=== PATIENT | female | born 1945 | race Caucasian/White ===

== ENCOUNTER 2024-07-10 13:35 | Emergency (ER) | payer OTHER, MEDICARE, SELFPAY ==
--- NOTE | ~2024-07-10 | US_ITS ---
EXAMINATION: US TRIPLEX LOWER EXTREMITY, LEFT CLINICAL INFORMATION: Left lower extremity pain. COMPARISON: None available. TECHNIQUE: Color-flow triplex imaging with spectral analysis and compression Doppler were performed on the left lower extremity. FINDINGS: Respiratory variation, normal compression and augmented flow are noted throughout the left lower extremity. The visualized common femoral vein, superficial femoral vein, profunda femoral vein, popliteal vein and midcalf peroneal and posterior tibial venous segments show no evidence of deep venous thrombosis. There is no Chambers's cyst. US/US venous duplex LE LT IMPRESSION: No evidence of deep venous thrombosis involving the left lower extremity. Electronically signed by: Uche Tinajero MD 07/10/2024 02:56 PM EDT
--- NOTE | ~2024-07-10 | XR_ITS ---
EXAMINATION: XR HIP, LEFT CLINICAL INFORMATION: Chronic atraumatic pain. COMPARISON: None available. TECHNIQUE: Two views of the left hip. FINDINGS: No acute fracture or subluxation. 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 SI joints are symmetric. Pubic symphysis and pelvic rim are maintained. Surgical clip overlie the right hemipelvis. No significant soft tissue abnormality. XR/XR hip LT w PEL1V IMPRESSION: No acute fracture or subluxation. 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 Electronically signed by: Magdalena Salazar MD 07/10/2024 03:11 PM EDT
--- NOTE | 2024-07-10 13:47 | ED.LOWEXIN ---
HPI - Extremity Injury (Lower) General Chief Complaint: Extremity Problem Stated Complaint: pain left leg Time Seen by Provider: 07/10/24 13:56 Source: patient and family Mode of arrival: ambulatory Limitations: no limitations History of Present Illness HPI Narrative: 79-year-old female with a past medical history of restless legs syndrome presents emergency department, with her , for concerns for left leg and hip pain radiating into her left lateral lower leg as well as medial left lower leg pain. She reports she has had this pain ?for awhile? and is concerned that she may have an aneurysm. She reports she has had x-rays of the hip in the past with no evidence of fracture. She denies any falls or trauma to the hip, fever, chills, swelling, deformity, erythema, or ecchymosis. Pertinent positives and negatives discussed in the HPI Related Data Allergies Allergy/AdvReac Type Severity Reaction Status Date / Time Penicillins Allergy Rash Verified 07/10/24 13:50 benzocaine AdvReac Agitated Verified 07/10/24 13:50 Review of Systems Review of Systems: Yes all other systems are reviewed and are negative [facility] Social History Social History Advance Directives: No Advance Directives Information Provided: No Physical Exam Vital Signs: Vital Signs: Last Vital Signs Temp 97.8 F 07/10/24 15:21 Pulse 85 07/10/24 15:21 Resp 20 07/10/24 15:21 BP 151/71 H 07/10/24 15:21 Pulse Ox 97 07/10/24 15:21 O2 Del Method Room Air 07/10/24 15:21 BMI result Body Mass Index 32.4 Nursing notes and vital signs reviewed. GENERAL APPEARANCE: A&0 x 4, generally well appearing, no acute distress HENMT: Normal to inspection, atraumatic, face symmetrical. Normal external ears, nose, and oropharynx clear. EYE: PERRLA, EOM intact, structures appear normal NECK: Supple without stiffness or restricted ROM. HEART: Normal rate and regular rhythm, normal S1/S2, no M/R/G LUNGS: LS CTA, moving air well. Able to speak in complete sentences. No crackles, wheezes, or rhonchi auscultated BACK: No CVAT, no obvious deformity EXTREMITIES: Moving all extremities without difficulty. Normal capillary refill. NEUROLOGICAL: Alert and oriented, moving all 4 extremities with equal strength. CN not formally tested but appearing grossly intact. Observed to ambulate with normal gait. Cognition normal SKIN: Warm and dry without any lesions, rash, or visible sores Course Course Course Narrative: This is a Rapid Medical Examination (RME) performed by Rahat Mccurdy PA-C in triage. Full HPI, ROS, assessment and treatment plan per primary provider in the Main ED. 79 yo female here for eval of intermittent LLE pain extending from left hip/ buttock into her foot with a majority of the pain localized to her left hanks. admits flight to/from [place] in May however pain was present prior to this trip. no chest pain or SOB. no back pain. no falls/ trauma/injury. taking tylenol. + no noted swelling or overlying skin changes. ambulating w/ steady gait. Plan: duplex, xr Medical Decision Making Medical Decision Making MDM Narrative: Old records reviewed for previous imaging, lab studies, ECGs, and notes. Additional HPI obtained from patient's . Patient was assessed the emergency department with no acute distress or toxicity noted. Plan for ultrasound and x-ray to assess for cause of patient's discomfort. Ultrasound left lower extremity completed as well as x-ray left tib/fib. I have independently interpreted these images as negative for acute findings. Radiologist reports no evidence deep vein thrombosis involving the left lower extremity as well as no evidence of Chambers's cyst on ultrasound and no evidence of acute fracture or subluxation on x-ray. 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 Steroids were discussed and ultimately deferred as patient reports she completed a course roughly 2-3 weeks ago. Patient educated to follow-up with her primary care provider regarding treatment for her restless legs as well as her left leg pain she may require physical therapy. Patient is safe for discharge at this time with plan for [id number] Tylenol and/or NSAID such as ibuprofen or naproxen for fever/discomfort with dosing as per packaging. HPI, PE, diagnostics, and plan discussed with patient and family with no unanswered questions at this time. Strict return precautions given to return to the emergency department with new, worsening, or concerning emergent symptoms. Recommended to follow-up with there primary care provider in 24-48 hours for further treatment and management. Differential Diagnosis Differential Diagnoses: The differential diagnosis associated with the presentation includes But not limited to fracture, dislocation, strain, sprain, lumbar radiculopathy, stenosis, cauda equina, epidural abscess, sciatic nerve pain, DVT, restless legs syndrome, electrolyte deficiency, sepsis, malignancy Independent Interpretation I performed an independent interpretation of an: Plain X-Ray and Ultrasound Interpretation: Negative for acute findings Radiology Impression Discussion of test interpretation with radiology: I have reviewed the radiologist's reading. Independent Historian Clinical information obtained from an independent historian. History obtained from or confirmed by: Spouse Tests considered The following testing was considered but not selected: Prednisone was considered but ultimately deferred at this time Prescription Management I considered prescription management with: Pain Medication Narcotic pain medication was considered, however; based on exam, side effects, and high-risk of addiction was deemed necessary at this time. Discharge Plan Discharge Clinical Impression: Left leg pain, Left sciatic nerve pain Patient Disposition: Home, Self-Care Instructions: Sciatica (ED), Leg Pain (ED), Lower Back Exercises (ED) Additional Instructions: EXAMINATION: US TRIPLEX LOWER EXTREMITY, LEFT CLINICAL INFORMATION: Left lower extremity pain. COMPARISON: None available. TECHNIQUE: Color-flow triplex imaging with spectral analysis and compression Doppler were performed on the left lower extremity. FINDINGS: Respiratory variation, normal compression and augmented flow are noted throughout the left lower extremity. The visualized common femoral vein, superficial femoral vein, profunda femoral vein, popliteal vein and midcalf peroneal and posterior tibial venous segments show no evidence of deep venous thrombosis. There is no Chambers's cyst. US/US venous duplex LE LT IMPRESSION: No evidence of deep venous thrombosis involving the left lower extremity. EXAMINATION: XR HIP, LEFT CLINICAL INFORMATION: Chronic atraumatic pain. COMPARISON: None available. TECHNIQUE: Two views of the left hip. FINDINGS: No acute fracture or subluxation. 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 SI joints are symmetric. Pubic symphysis and pelvic rim are maintained. Surgical clip overlie the right hemipelvis. No significant soft tissue abnormality. XR/XR hip LT w PEL1V IMPRESSION: No acute fracture or subluxation. 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 Referrals: [facility] [Provider Group] [facility] [Provider Group] [facility]Lacy [Provider Group] Discharge Date/Time: 07/10/24 15:28 Print Language: Cymraes
[2024-07-10 13:49] VITALS: BP 149/69; PULSE 92; RESP 16; TEMP 36.1; O2SAT 97; BMI 32.4
--- NOTE | 2024-07-10 14:16 | PC.NURSE ---
Pt ambulatory with a steady gait to Xray.
[2024-07-10 15:21] VITALS: BP 151/71; PULSE 85; RESP 20; TEMP 36.6; O2SAT 97
--- NOTE | 2024-07-10 15:27 | PC.NURSE ---
PT WAS SEEN AND DISCHARGED BY PROVIDER.
== END 2024-07-10 15:28 | disposition home or self-care (01) ==
PROVIDERS: Emergency Provider Student in an Organized Health Care Education/Training Program
DX: M79.605 Pain in left leg (principal); M54.32 Sciatica, left side; G25.81 Restless legs syndrome
CPT/HCPCS: 73502; 93971; 99282; 99284

== ENCOUNTER 2025-07-01 14:50 | Outpatient (REF) | payer MEDICARE, OTHER, SELFPAY | END 2025-07-01 14:51 | disposition home or self-care (01) | LOC: HO.LAB 14:50 | PROVIDERS: Visit Provider Urology | DX: R35.0 Frequency of micturition (principal); R32 Unspecified urinary incontinence | CPT/HCPCS: 81003; 87086; 99202 ==

== ENCOUNTER 2025-07-01 14:50 | Outpatient (AMB) | payer MEDICARE, OTHER, SELFPAY ==
--- OUTSIDE RECORDS SUMMARY | 2025-02-02 10:00 | XMS_ITS ---
Author Organization [facility] Address [address] [facility] [place] [address] Care Team Providers Care Grain Farmworker Name Role Phone MONTANA AKINS Primary Care Provider ANDI RICHARDSON [phone] REASON FOR VISIT 4 month f/u Encounters Encounter Location Date Provider Diagnosis [facility] [place] [address] 02/02/2025 ANDI RICHARDSON Plan Of Treatment Next Appt Details Provider Name:ANDI RICHARDSON, 01:00:00 PM, [address], [place], [address], Provider Name:ANDI RICHARDSON, 02:00:00 PM, [address], [place], [address], Progress Notes * LINH REYNOLDSENDOB:1945 (80 yo F)Acc No.[id number]:02/02/2025 Progress Notes Patient: NANCY CORDOVA Provider: Lance RICHARDSON PA-C :1945 A ge:80 Y S ex:Female Date:02/02/2025 Address:[facility] [address] [id number] Pcp:MONTANA AKINS Subjective: * Chief Complaints: * 1 . 4 month f/u. * Medical History: Objective: * Vitals: Assessment: Plan: * Treatment: * Images: Billing Information: * Visit Code: * Procedure Codes: Care Plan Details* * Electronic signature of PEDRO RICHARDSON PA-C on 07/01/2025 at 07:07 PM EDT Sign off status: Pending * Provider: Lance RICHARDSON PA-C Date: 0 02/02/2025 Generated for Pierce little/Inés/Diana on: 0 07/01/2025 07:07 PM EDT
--- NOTE | 2025-07-01 15:05 | A.OFFVIS_ITS ---
Intake Visit Reasons: urinary frecuency Intake Note: New patient presents today for initial visit for urinary frequency Urology Medication:None Blood Thinner:None Antibiotic Allergies:None PVR:0ml Allergies Penicillins Allergy (Verified 07/01/25 15:05) Rash benzocaine Adverse Reaction (Verified 07/01/25 15:05) Agitated HPI Comments Details: Ashtyn presents as a new patient evaluation for urinary frequency urinalysis today blood -2+ leukocytes. History of Present Illness The patient is a 80-year-old female presenting with urinary frequency. She reports a lifelong issue with urinary frequency, often linked to anxiety, and describes a sensation of tightness and urgency when aware of the need to urinate. A childhood incident at age [age] is recalled as a traumatic event related to bladder control, and she notes increased urgency in stressful situations like driving. The patient denies a history of bladder infections, except possibly during , and today's urinalysis showed blood negative 2 plus. Results - Urinalysis: Blood negative, Leuk- 2 + Plan 1. Urinary Frequency - Plan to perform an ultrasound of the kidneys and bladder to assess for any abnormalities. - Consideration of a cystoscopy to visualize the bladder internally, with numbing jelly and lidocaine for comfort. - Referral to radiology for scheduling the ultrasound. 2. Anxiety-Related Bladder Symptoms - Acknowledgment of the role of anxiety in exacerbating bladder symptoms. - Discussion of the potential for anxiety management to alleviate symptoms. Send additional finish [facility] Medical History Arthritis Gastro-esophageal reflux disease without esophagitis Hyperlipidemia Insomnia Hypertension Atrial fibrillation Anxiety Anemia Surgical History H/O colonoscopy History of hysterectomy Hx of LASIK Review of Systems Const All systems reviewed & are unremarkable except as noted in HPI and below Reports no additional complaints Eyes Reports no additional complaints ENT Reports no additional complaints Card Reports no additional complaints Resp Reports no additional complaints GI Reports no additional complaints Reports as per HPI Musc Reports no additional complaints Skin/Breast Reports system reviewed and no additional complaints, except as documented Neuro Reports no additional complaints Psych Reports no additional complaints Endo Reports no additional complaints Obed/Lymph Reports no additional complaints Aller/Immun Reports no additional complaints Results AMB Urinalysis, Automated UA Leukoctes 125 Alyse/uL Last Edit by Petrona King on 07/01/25 17:11 UA Nitrite Negative Last Edit by Petrona King on 07/01/25 17:11 UA Urobilinogen 3.5 mg/dL Last Edit by Petrona King on 07/01/25 17:11 UA Protein 0 mg/dL Last Edit by Petrona King on 07/01/25 17:11 UA pH 6.0 Last Edit by Petrona King on 07/01/25 17:11 UA Blood 0 Misael/uL Last Edit by Petrona King on 07/01/25 17:11 UA Specific [place] 1.015 Last Edit by Petrona King on 07/01/25 17:11 UA Ketone Negative Last Edit by Petrona King on 07/01/25 17:11 UA Bilirubin 0 mg/dL Last Edit by Petrona King on 07/01/25 17:11 UA Glucose 0 mg/dL Last Edit by Petrona King on 07/01/25 17:11 Assessment & Plan Assessment & Plan Orders: Orders AMB Urinalysis Automated Today R35.0 - Frequency of micturition Urine Culture Today R35.0 - Frequency of micturition Coding Level of Care Code New Pt Level 4 (07946)
--- OUTSIDE RECORDS SUMMARY | 2025-07-01 19:08 | XMS_ITS | Patient Health Record ---
Author Organization [facility] [address] Address [address] [place] [address] Care Team Providers Care Plastic Welder Name Role Phone AKINS, [place] Primary Care Provider [phone] ANDI RICHARDSON Unavailable [phone] RICHIE AKINS Unavailable [phone] ALVAREZ HUYNH Unavailable [phone] SONAM BRAGA Unavailable [phone] RYAN HUGGINS Unavailable [phone] Allergies Allergen (clinical drug ingredient) Drug/Non Drug Allergy documented on EMR Reaction Allergy Type Onset Date Status benzocaine (uncoded) Unknown Allergy Active pcn (uncoded) Unknown Allergy Active Results Component Value Reference Range Notes Comp. Metabolic Panel [id number] Reviewed date:10/05/2024 09:57:53 AM Interpretation: Performing Lab:[facility], [address] [place] [address], [place], Phone - [phone], Director - Allan Notes/Report: Glucose 96 70-99 mg/dL BUN 12 8-27 mg/dL Creatinine 0.83 0.57-1.00 mg/dL eGFR 73 >59 mL/min/1.73 BUN/Creatinine Ratio 14 12-28 Sodium 138 134-144 mmol/L Potassium 4.3 3.5-5.2 mmol/L Chloride 102 96-106 mmol/L Carbon Dioxide, Total 24 20-29 mmol/L Calcium 9.3 8.7-10.3 mg/dL Protein, Total 6.6 6.0-8.5 g/dL Albumin 4.2 3.8-4.8 g/dL Globulin, Total 2.4 1.5-4.5 g/dL Bilirubin, Total 0.4 0.0-1.2 mg/dL Alkaline Phosphatase 102 44-121 IU/L AST (SGOT) 21 0-40 IU/L ALT (SGPT) 12 0-32 IU/L CBC With Differential/Platel et-[id number] Reviewed date:10/05/2024 09:57:53 AM Interpretation: Performing Lab:[facility] [place], [address] [facility], Phone - [phone], Director - MDJodry Notes/Report: WBC 4.9 3.4-10.8 x10E3/uL RBC 3.95 3.77-5.28 x10E6/uL Hemoglobin 11.4 11.1-15.9 g/dL Hematocrit 35.8 34.0-46.6 % MCV 91 79-97 fL MCH 28.9 26.6-33.0 pg MCHC 31.8 31.5-35.7 g/dL RDW 14.0 11.7-15.4 % Platelets 217 150-450 x10E3/uL Neutrophils 57 Not Estab. % Lymphs 32 Not Estab. % Monocytes 9 Not Estab. % Eos 2 Not Estab. % Basos 0 Not Estab. % Neutrophils (Absolute) 2.8 1.4-7.0 x10E3/uL Lymphs (Absolute) 1.6 0.7-3.1 x10E3/uL Monocytes(Absolute) 0.4 0.1-0.9 x10E3/uL Eos (Absolute) 0.1 0.0-0.4 x10E3/uL Baso (Absolute) 0.0 0.0-0.2 x10E3/uL Immature Granulocytes 0 Not Estab. % Immature Grans (Abs) 0.0 0.0-0.1 x10E3/uL Urinalysis, Routine-[id number] Reviewed date:10/05/2024 10:02:49 AM Interpretation: Performing Lab:[facility] [place]ie, [address] [facility], [place], Phone - [phone], Director - Angusy Notes/Report: Specific [place] 1.024 1.005-1.030 pH 5.5 5.0-7.5 Urine-Color Yellow Yellow Appearance Cloudy Clear WBC Esterase 1+ Negative Protein 1+ Negative/Trace Glucose Negative Negative Ketones Trace Negative Occult Blood Negative Negative Bilirubin Negative Negative Urobilinogen,Semi-Qn 0.2 0.2-1.0 mg/dL Nitrite, Urine Negative Negative Microscopic Examination See below: Micr oscopic was indicated and was performed. WBC 0-5 0 - 5 /hpf RBC None seen 0 - 2 /hpf Epithelial Cells (non renal) >10 0 - 10 /hpf Casts None seen None seen /lpf Crystals Present N/A Crystal Type Calcium Oxalate N/A Bacteria Few None seen/Few Reason For Referral Reason evaluate & treat Diagnosis 1 Leg pain, left (M79. 605) Diagnosis 2 Leg pain, right (M79 .604) Referral Organization [facility] [address] Referring Provider First Name ANDI Referring Provider Last Name DEBRA Referring Provider Speciality Internal edicine Referred Provider Specialty Physical The rapist Clinical Notes Juanjo Chan 01/2024 11:17:43 AM > faxed pt info to [facility] in [facility]. p) [phone] f) [phone] Referral Priority Routine Reason evaluate & treat Diagnosis 1 Back pain, unspecifi ed back location, unspecified back pain laterality, unspecified chronicity (M54.9) [facility] Referring Provider First Name ANDI Referring Provider Last Name DEBRA Referring Provider Speciality Internal edicine Referred Provider Specialty Pain Medicin e Clinical Notes Juanjo Chan 01/2024 11:31:13 AM > faxed pt info to [facility]. p) [phone] f) [phone], Chikis Crespo 10/22/2024 03:44:27 PM > The patient was seen on 09/22/24 Referral Priority Routine Reason Frequency with [facility] u ro Diagnosis 1 Frequency of urinati on (R35.0) [facility] Referring Provider First Name [place] Referring Provider Last Name TASHI Referring Provider Speciality Internal M edicine Referred Provider Specialty Urology General Notes [facility], [address]; [facility] , P [phone], F [phone] Clinical Notes Susanne Gupta 2024 12:29:20 PM >Referral with note and labs sent to [facility] uro. Paper copy mailed to pt for record. TY.Zak Redena 12/09/2024 02:27:59 PM > Scheduled for 02/25 at 11 am. Pt aware Referral Priority Routine Reason Evaluate & Treat Diagnosis 1 Back pain, unspecifi ed back location, unspecified back pain laterality, unspecified chronicity (M54.9) Referral Organization [facility] Referring Provider First Name ANDI Referring Provider Last Name DEBRA Referring Provider Speciality Internal edicine Referred Provider Specialty Physical The rapist General Notes Racquel Oneill 0 06/08/2025 11:45:29 AM > Referral to [facility] and faxed, p. [phone], f. [phone] Referral Priority Routine Diagnosis 1 Pain in right knee ( M25.561) Diagnosis 2 Other chronic pain ( G89.29) Diagnosis 3 Pain in left knee (M 25.562) Referral Organization [facility] Referring Provider First Name ANDI Referring Provider Last Name DEBRA [facility] Ref[facility]ty [facility] PEDRO LUIS ESCAMILLAERSTEN 0 06/30/2025 10:47:00 AM >Referral to [facility] and faxed, p. [phone], f. [phone] Referral Priority Routine Medications Medication SIG (Take, Route, Frequency, Duration) Notes Start Date End Date Status Meclizine HCl 25 MG 1 tablet as needed Orally Once a day; Duration: 30 days As needed 05/25/2020 Active amLODIPine Besylate 5 MG TAKE 1 TABLET B Y MOUTH EVERY DAY FOR 90 DAYS Orally Once a day; Duration: 90 days Active Dexilant 60 MG 1 capsule Orally Onc e a day; Duration: 30 day(s) undefined 08/08/2018 Active Tums 500 MG 1 tablet Orally Once a day; Duration: 30 day(s) Active LORazepam 0.5 MG 1 tablet Orally Once a day; Duration: 30 days 05/28/2025 Active Pravastatin Sodium 40 MG 1 tablet Orally Once a day; Duration: 90 days Active Fluticasone Propionate 50 MCG/ACT 1 spray in each nostril Nasally Once a day; Duration: 30 days As needed Active Naproxen 500 MG 1 tablet with food o r milk as needed Orally every 12 hrs; Duration: 10 days 06/08/2025 Active Immunizations Vaccine Route Administration Date Status Comme nts Influenza, high dose seasonal IM Intramuscular 08/05/2023 Administered Social History Tobacco Use: Social History Observation Description Date Details (start date - stop date) Former Smoker NA - NA Tobacco Use/Smoking Question Answer Notes Are you a former smoker Section Notes: Social History verified Social History verified Social History verified Social History verified Problems Problem Type SNOMED Code ICD Code Onset Dates Problem Status W/U Status Risk Notes Problem Iron deficiency anemia (74678638) Iron deficiency anemia, unspecified (D50.9) Active confirmed Problem Vitamin B>12< deficiency anaemia (06793428) Vitamin B12 deficiency anemia, unspecified (D51.9) Active confirmed Problem Vitamin D deficiency (58250952) Vitamin D deficiency, unspecified (E55.9) Active confirmed Problem Obesity (604293183) Obesity, unspecified (E66.9) Active confirmed Problem Hyperlipidemia (74191809) Hyperlipidemia, unspecified (E78.5) Active confirmed Problem Insomnia (254833475) Insomnia, unspecified (G47.00) Active confirmed Problem Chronic pain (17833642) Other chronic pain (G89.29) Active confirmed Problem Benign paroxysmal positional vertigo (658929812) Benign paroxysmal vertigo, bilateral (H81.13) Active confirmed Problem Essential hypertension (22270437) Essential (primary) hypertension (I10) Active confirmed Problem Atherosclerotic heart disease of [place] coronary artery without angina pectoris (866437898059792) Atherosclerotic heart disease of [place] coronary artery without angina pectoris (I25.10) Active confirmed Problem Right carotid artery stenosis (799945906407925) Occlusion and stenosis of right carotid artery (I65.21) Active confirmed Problem Atopic dermatitis (29946455) Atopic dermatitis, unspecified (L20.9) Active confirmed Problem 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 Problem Adult health examination (107290119) Encounter for general adult medical examination without abnormal findings (Z00.00) Active confirmed Problem Obese class II (756137356234443) Body mass index (BMI) 35.0-35.9, adult (Z68.35) Active confirmed Problem Prediabetes (344119478) Prediabetes (R73.03) Active confirmed Problem Body mass index 30.00 to 34.99 (537069399525963) Body mass index (BMI) of 34.0-34.9 in adult (Z68.34) Active confirmed Problem Backache (061353334) Back pain, unspecified back location, unspecified back pain laterality, unspecified chronicity (M54.9) Active confirmed Problem Anxiety (68721704) Anxiety (F41.9) Active confi rmed Problem Adult health examination (370746785) Adult general medical exam (Z00.00) Active confirmed Problem Atrial fibrillation (76022858) Atrial fibrillation, unspecified type (I48.91) Active confirmed Problem Arthritis (7621903) Arthritis (M19.90) Active c onfirmed Problem Insomnia (805078455) Insomnia, unspecified type (G47.00) Active confirmed Problem Vitamin D deficiency (11991932) Vitamin D deficiency (E55.9) Active confirmed Problem Arthralgia of the pelvic region and thigh (520714932) Left hip pain (M25.552) Active confirmed Problem Pain in limb (91031380) Leg pain, left (M79.605) Active confirmed Problem Sciatica (45835882) Sciatic leg pain (M54.30) Active confirmed Problem Obese class II (938522207758272) BMI 36.0-36.9,adult (Z68.36) Active confirmed Problem Vitamin B>12< deficiency anaemia (21230961) Anemia due to vitamin B12 deficiency, unspecified B12 deficiency type (D51.9) Active confirmed Problem Gastroesophageal reflux disease (611046291) GERD without esophagitis (K21.9) Active confirmed Problem Pain in limb (62479633) Pain in left hanks (M79.662) Active confirmed Problem Hyperlipidemia (32347135) Hyperlipidemia (E78.5) Active confirmed Problem Pain in limb (99840904) Leg pain, right (M79.604) Active confirmed Vital Signs Heart Rate 90 /min 06/08/2025 Oximetry 96 % 06/08/2025 Blood pressure diastolic 80 mm Hg 06/08/2025 Height 63 in 06/08/2025 Blood pressure systolic 134 mm Hg 06/08/2025 Weight 203.1 lbs 06/08/2025 BMI 35.97 kg/m2 06/08/2025 Encounters Encounter Location Date Provider [facility] [address] [place] [address] 09/09/2024 ANDI DEBRA Left leg swelling M7 9.89 ; Atrial fibrillation, unspecified type I48.91 ; Leg pain, right M79.604 ; Leg pain, left M79.605 ; Hyperlipidemia, unspecified E78.5 ; Anxiety F41.9 ; Obesity, unspecified E66.9 ; Arthritis M19.90 and 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 [place] [address] 10/05/2024 [facility] Z00.00 ; Hyperlipidemia, unspecified E78.5 and Essential (primary) hypertension I10 [facility] [address] [place], [place] 03/15/2025 ANDI DEBRA Atrial fibrillation, unspecified type I48.91 ; Left leg swelling M79.89 ; Leg pain, right M79.604 ; Leg pain, left M79.605 ; Hyperlipidemia, unspecified E78.5 ; Anxiety F41.9 ; Obesity, unspecified E66.9 ; Arthritis M19.90 ; 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 ; Vitamin D deficiency, unspecified E55.9 and Encounter for examination of blood pressure without abnormal findings Z01.30 [facility] [address] [place], [place] 06/08/2025 ANDI DEBRA Left leg swelling M7 9.89 ; Lower thoracic back pain M54.6 ; Hyperlipidemia, unspecified E78.5 ; Anxiety F41.9 ; Obesity, unspecified E66.9 ; Arthritis M19.90 ; 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 [address] [place], [place] 07/30/2024 RYAN BHAVNA [facility] [address] [place] [address] 07/31/2024 SONAM BRAGA [facility] [address] [place] [address] 09/08/2024 NIDNIALL AKINS [facility] [address] [place] [address] 09/11/20[address] TALAL AKINS [facility] [address] [place] [address] 09/15/2024 ANDI DEBRA [facility] [address] [place] [address] 10/05/2024 NIDNIALL AKINS [facility] [address] [place] [address] 10/12/2024 RYAN HUGGINS [facility] [address] [place] [address] 11/10/2024 NIDNIALL AKINS [facility] [address] [place] [address] 12/03/2024 TALPHILLIP AKINS [facility] [address] [place] [address] 12/08/2024 TALAL AKINS [facility] [address] [place] [address] 02/09/2025 NIDNIALL AKINS [facility] [address] [place] [address] 04/16/2025 ANDI DEBRA [facility] [address] [place] [address] 05/28/2025 ANDI DEBRA [facility] [address] [place], [place] 05/31/2025 ANDI DEBRA [facility] [address] [place] [address] 06/03/2025 ALVAREZ LINO [facility] [address] [place] [address] 06/08/2025 ANDI DEBRA [facility] [address] [place] [address] 06/30/2025 ANDI DEBRA [facility] [address] [place] [address] 07/31/2024 RYAN BHAVNA Assessments Encounter Date Diagnosis (ICD Code) Assessment Notes Treatment Notes Treatment Clinical Notes Section Notes 09/09/2024 Atrial fibrillation, unspecified type (ICD-10 - I48.91) Nancy is a pleasant 79-year-old female with a past medical history of arthritis, anemia, anxiety, A-fib, hyperlipidemia, esophageal reflux, hypertension and insomnia who presents today for worsening bilateral lower leg pain, swelling and lumbar spine pain. #Lumbar spine pain: MRI conducted in 2022 states, mild to moderate degenerative changes of the lumbar spine, L2-3 with disc bulging, L3-4, moderate disc bulging and L4-L5 with moderate facet and ligamentum degenerative changes. Patient referred to [facility] at this time as she may benefit from a repeat MRI or cortisone injections. #Bilateral lower leg swelling: + Left ankle with 10 cm and mid calf 14-1/2 cm leg circumference measurement, + Right ankle with 10 cm and mid calf measurement 13 cm. With the difference in leg circumferences, tenderness upon palpation, warmth upon palpation of the left lower extremity a stat rule out DVT ultrasound placed for bilateral lower legs today. If there are no abnormalities upon ultrasound, refer to vascular surgery for further evaluation.Patient is to sign a [facility] emergency department record release, states that she was seen in the emergency department for lower leg swelling a few weeks ago, however we are unsure of what images or treatment was implemented at that time. #Atrial fibrillation: Last cardiology note is from February 2024, EKG performed at that time showed normal sinus rhythm at 73 bpm. Was discontinued sotalol. Warfarin was additionally discontinued, therefore the patient is not anticoagulated at this time. #Hyperlipidemia: Continue pravastatin 40 mg #Anxiety: Continue lorazepam 0.5 mg once a day as needed #Esophageal reflux continue Dexilant 60 mg capsules All questions have been answered to patient's satisfaction. Patient verbalized understanding of diagnosis and treatments explained. Advised to call sooner prior to next visit it any questions/concerns arise. Case discussed with Elmer KNOWLES who reviewed the assessment and plan. Chart, medications, labs, vital signs reviewed. Dictation was accomplished with the use of [employer] voice recognition software, which is prone to medical misidentifications and grammatical errors. This are unintentional and the practitioner does try to identify and correct these, but some could still be present. Please do not hesitate to contact practitioner for clarification. 09/09/2024 Left leg swelling (ICD-10 - M79.89) Nancy is a pleasant 79-year-old female with a past medical history of arthritis, anemia, anxiety, A-fib, hyperlipidemia, esophageal reflux, hypertension and insomnia who presents today for worsening bilateral lower leg pain, swelling and lumbar spine pain. #Lumbar spine pain: MRI conducted in 2022 states, mild to moderate degenerative changes of the lumbar spine, L2-3 with disc bulging, L3-4, moderate disc bulging and L4-L5 with moderate facet and ligamentum degenerative changes. Patient referred to [facility] at this time as she may benefit from a repeat MRI or cortisone injections. #Bilateral lower leg swelling: + Left ankle with 10 cm and mid calf 14-1/2 cm leg circumference measurement, + Right ankle with 10 cm and mid calf measurement 13 cm. With the difference in leg circumferences, tenderness upon palpation, warmth upon palpation of the left lower extremity a stat rule out DVT ultrasound placed for bilateral lower legs today. If there are no abnormalities upon ultrasound, refer to vascular surgery for further evaluation.Patient is to sign a [facility] emergency department record release, states that she was seen in the emergency department for lower leg swelling a few weeks ago, however we are unsure of what images or treatment was implemented at that time. #Atrial fibrillation: Last cardiology note is from February 2024, EKG performed at that time showed normal sinus rhythm at 73 bpm. Was discontinued sotalol. Warfarin was additionally discontinued, therefore the patient is not anticoagulated at this time. #Hyperlipidemia: Continue pravastatin 40 mg #Anxiety: Continue lorazepam 0.5 mg once a day as needed #Esophageal reflux continue Dexilant 60 mg capsules All questions have been answered to patient's satisfaction. Patient verbalized understanding of diagnosis and treatments explained. Advised to call sooner prior to next visit it any questions/concerns arise. Case discussed with Elmer KNOWLES who reviewed the assessment and plan. Chart, medications, labs, vital signs reviewed. Dictation was accomplished with the use of [email or web address] voice recognition software, which is prone to medical misidentifications and grammatical errors. This are unintentional and the practitioner does try to identify and correct these, but some could still be present. Please do not hesitate to contact practitioner for clarification. 10/05/2024 Adult general medical exam (ICD-10 - Z00.00) Patient seen and examined. Comprehensive discussion was done on the following. 1. Nutrition: It is important to follow a healthy diet based on lots of vegetables and legumes and good fat. Avoid processed food and processed carbohydrates. Learn to prepare your own meals. Learn to read labels and avoid high fructose corn syrup, processed chemicals added to increase shelf life and preprepared meals. Avoid fast foods. Learn to eat slowly and plan meals for a week. Try to count calories and be mindful off daily calorie intake. Get into the habit of keeping an eye on your weight by using an appropriate scale. Learn to log exercise and discussed fitness Apps like [employer] which can help keep log off calories taken versus calories burned. Local food should be preferred. Discussed Dirty Dozen Versus Clean Fifteen. Discussed healthy supplements like fish oil, Tumeric, Curcumin, Melatonin, Resveratrol, Probiotics, Vitamin-D, Alpha-Lipoic acid, Vitamin-D and coconut oil. 2. It is important to exercise regularly. Is a good habit to walk at least 30-45 minutes a day. Gentle weightlifting with standard precautions to protect the back. Finding activity like cycling or hiking and get into the habit of engaging in it. Stretching before and after the exercises important. It is also important to contact me if there are any problems like shortness of breath, chest pain, back pain and joint or muscle pain associated with the exercise. 3. Discussed age appropriate screening guidelines. Colonoscopy needs to start at age 50 with stool for occult blood as appropriate. There is a new test that can test for genetic abnormalities in the stool sample. This would not replace a colonoscopy but could be used as a screening tool for patients who do not want a colonoscopy. We discussed the importance of early detection of colon cancer. 4. Discussed current guidelines with respect to breast examination, mammogram and pap smear for early detection of breast and cervical cancer. Patient advised to follow up with these appointments. 5. Discussed safe driving and no use of smart phone while driving 6. Age-appropriate immunizations were discussed. A tetanus booster is needed every 10 years. Flu vaccine is recommended every year just before the start of the flu season. Shingles vaccine is recommended after age 50 but not all insurances cover it. Pneumonia vaccine is given after age 65 unless there are certain comorbidities for which it is started earlier. 7. Diagnostic labs were discussed. These could include CBC CMP and lipids with fasting blood glucose and insulin levels. Vitamin D and hemoglobin A1c testing might be appropriate. 03/15/2025 Atrial fibrillation, unspecified type (ICD-10 - I48.91) Nancy is a pleasant 80-year-old female with a past medical history of arthritis, anemia, anxiety, A-fib, hyperlipidemia, esophageal reflux, hypertension and insomnia who presents today for worsening bilateral lower leg pain, swelling and lumbar spine pain. #Pancreatic cyst: She states that she is continuously following with gastroenterology due to the incidental finding of pancreatic cyst numerous years ago. Last gastroenterology note we have in file is from 2018, therefore we will obtain recent. Patient had an MRI of her abdomen completed in 2020 that stated cystic lesions in the neck and junction of the neck and body of the pancreas, largest collectively measuring 1.4 x 2.3 cm. 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 Patient referred to [facility] at this time as she may benefit from a repeat MRI or cortisone injections. #Bilateral lower leg swelling: Resolved.. Had a recent benign US #Right knee pain: Continue following with [facility] spine and [email or web address] for injections #Atrial fibrillation: Last cardiology note is from February 2024, EKG performed at that time showed normal sinus rhythm at 73 bpm. Was discontinued sotalol. Warfarin was additionally discontinued, therefore the patient is not anticoagulated at this time. #Hyperlipidemia: Continue pravastatin 40 mg #Anxiety: Continue lorazepam 0.5 mg once a day as needed #Esophageal reflux continue Dexilant 60 mg capsules All questions have been answered to patient's satisfaction. Patient verbalized understanding of diagnosis and treatments explained. Advised to call sooner prior to next visit it any questions/concerns arise. Case discussed with Elmer KNOWLES who reviewed the assessment and plan. Chart, medications, labs, vital signs reviewed. Dictation was accomplished with the use of [email or web address] voice recognition software, which is prone to medical misidentifications and grammatical errors. This are unintentional and the practitioner does try to identify and correct these, but some could still be present. Please do not hesitate to contact practitioner for clarification. 06/08/2025 Left leg swelling (ICD-10 - M79.89) Nancy is a pleasant 80-year-old female with a past medical history of arthritis, anemia, anxiety, A-fib, hyperlipidemia, esophageal reflux, hypertension and insomnia who presents today for a f/u... #Lower back pain: Sending patient naproxen 500 mg tablets to be utilized as needed. Emphasized importance of taking this medication with food. Patient's recent CMP demonstrated adequate kidney function. Additionally placing physical therapy referral to [facility] as patient states that as of now she is living with her partner in [place]. #Pancreatic cyst: She states that she is continuously following with gastroenterology due to the incidental finding of pancreatic cyst numerous years ago. Last gastroenterology note we have in file is from 2017, therefore we will obtain recent. Patient had an MRI of her abdomen completed in 2020 that stated cystic lesions in the neck and junction of the neck and body of the pancreas, largest collectively measuring 1.4 x 2.3 cm. 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 #Right knee pain: Continue following with [facility] for injections PRN #Atrial fibrillation: Last cardiology note is from February 2024, EKG performed at that time showed normal sinus rhythm at 73 bpm. Was discontinued sotalol. Warfarin was additionally discontinued, therefore the patient is not anticoagulated at this time.Patient states that she did see cardiology in 2023 #Hyperlipidemia: Continue pravastatin 40 mg #Anxiety: Continue lorazepam 0.5 mg once a day as needed #Esophageal reflux continue Dexilant 60 mg capsules All questions have been answered to patient's satisfaction. Patient verbalized understanding of diagnosis and treatments explained. Advised to call sooner prior to next visit it any questions/concerns arise. Case discussed with Elmer KNOWLES who reviewed the assessment and plan. Chart, medications, labs, vital signs reviewed. Dictation was accomplished with the use of [email or web address] voice recognition software, which is prone to medical misidentifications and grammatical errors. This are unintentional and the practitioner does try to identify and correct these, but some could still be present. Please do not hesitate to contact practitioner for clarification. 06/08/2025 Lower thoracic back pain (ICD-10 - M54.6) Nancy is a pleasant 80-year-old female with a past medical history of arthritis, anemia, anxiety, A-fib, hyperlipidemia, esophageal reflux, hypertension and insomnia who presents today for a f/u... #Lower back pain: Sending patient naproxen 500 mg tablets to be utilized as needed. Emphasized importance of taking this medication with food. Patient's recent CMP demonstrated adequate kidney function. Additionally placing physical therapy referral to [facility] as patient states that as of now she is living with her partner in [place]. #Pancreatic cyst: She states that she is continuously following with gastroenterology due to the incidental finding of pancreatic cyst numerous years ago. Last gastroenterology note we have in file is from 2017, therefore we will obtain recent. Patient had an MRI of her abdomen completed in 2020 that stated cystic lesions in the neck and junction of the neck and body of the pancreas, largest collectively measuring 1.4 x 2.3 cm. 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 #Right knee pain: Continue following with [facility] for injections PRN #Atrial fibrillation: Last cardiology note is from February 2024, EKG performed at that time showed normal sinus rhythm at 73 bpm. Was discontinued sotalol. Warfarin was additionally discontinued, therefore the patient is not anticoagulated at this time.Patient states that she did see cardiology in 2023 #Hyperlipidemia: Continue pravastatin 40 mg #Anxiety: Continue lorazepam 0.5 mg once a day as needed #Esophageal reflux continue Dexilant 60 mg capsules All questions have been answered to patient's satisfaction. Patient verbalized understanding of diagnosis and treatments explained. Advised to call sooner prior to next visit it any questions/concerns arise. Case discussed with Elmer KNOWLES who reviewed the assessment and plan. Chart, medications, labs, vital signs reviewed. Dictation was accomplished with the use of [email or web address] voice recognition software, which is prone to medical misidentifications and grammatical errors. This are unintentional and the practitioner does try to identify and correct these, but some could still be present. Please do not hesitate to contact practitioner for clarification. 03/15/2025 Left leg swelling (ICD-10 - M79.89) Nancy is a pleasant 80-year-old female with a past medical history of arthritis, anemia, anxiety, A-fib, hyperlipidemia, esophageal reflux, hypertension and insomnia who presents today for worsening bilateral lower leg pain, swelling and lumbar spine pain. #Pancreatic cyst: She states that she is continuously following with gastroenterology due to the incidental finding of pancreatic cyst numerous years ago. Last gastroenterology note we have in file is from 2017, therefore we will obtain recent. Patient had an MRI of her abdomen completed in 2020 that stated cystic lesions in the neck and junction of the neck and body of the pancreas, largest collectively measuring 1.4 x 2.3 cm. 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 Patient referred to [facility] at this time as she may benefit from a repeat MRI or cortisone injections. #Bilateral lower leg swelling: Resolved.. Had a recent benign US #Right knee pain: Continue following with [facility] and [email or web address] for injections #Atrial fibrillation: Last cardiology note is from February 2024, EKG performed at that time showed normal sinus rhythm at 73 bpm. Was discontinued sotalol. Warfarin was additionally discontinued, therefore the patient is not anticoagulated at this time. #Hyperlipidemia: Continue pravastatin 40 mg #Anxiety: Continue lorazepam 0.5 mg once a day as needed #Esophageal reflux continue Dexilant 60 mg capsules All questions have been answered to patient's satisfaction. Patient verbalized understanding of diagnosis and treatments explained. Advised to call sooner prior to next visit it any questions/concerns arise. Case discussed with Elmer KNOWLES who reviewed the assessment and plan. Chart, medications, labs, vital signs reviewed. Dictation was accomplished with the use of [email or web address] voice recognition software, which is prone to medical misidentifications and grammatical errors. This are unintentional and the practitioner does try to identify and correct these, but some could still be present. Please do not hesitate to contact practitioner for clarification. 03/15/2025 Leg pain, right (ICD-10 - M79.604) Nancy is a pleasant 80-year-old female with a past medical history of arthritis, anemia, anxiety, A-fib, hyperlipidemia, esophageal reflux, hypertension and insomnia who presents today for worsening bilateral lower leg pain, swelling and lumbar spine pain. #Pancreatic cyst: She states that she is continuously following with gastroenterology due to the incidental finding of pancreatic cyst numerous years ago. Last gastroenterology note we have in file is from 2017, therefore we will obtain recent. Patient had an MRI of her abdomen completed in 2020 that stated cystic lesions in the neck and junction of the neck and body of the pancreas, largest collectively measuring 1.4 x 2.3 cm. 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 Patient referred to [facility] at this time as she may benefit from a repeat MRI or cortisone injections. #Bilateral lower leg swelling: Resolved.. Had a recent benign US #Right knee pain: Continue following with [facility] spine and [email or web address] for injections #Atrial fibrillation: Last cardiology note is from February 2024, EKG performed at that time showed normal sinus rhythm at 73 bpm. Was discontinued sotalol. Warfarin was additionally discontinued, therefore the patient is not anticoagulated at this time. #Hyperlipidemia: Continue pravastatin 40 mg #Anxiety: Continue lorazepam 0.5 mg once a day as needed #Esophageal reflux continue Dexilant 60 mg capsules All questions have been answered to patient's satisfaction. Patient verbalized understanding of diagnosis and treatments explained. Advised to call sooner prior to next visit it any questions/concerns arise. Case discussed with Elmer KNOWLES who reviewed the assessment and plan. Chart, medications, labs, vital signs reviewed. Dictation was accomplished with the use of [email or web address] voice recognition software, which is prone to medical misidentifications and grammatical errors. This are unintentional and the practitioner does try to identify and correct these, but some could still be present. Please do not hesitate to contact practitioner for clarification. 06/08/2025 Hyperlipidemia, unspecified (ICD-10 - E78.5) Nancy is a pleasant 80-year-old female with a past medical history of arthritis, anemia, anxiety, A-fib, hyperlipidemia, esophageal reflux, hypertension and insomnia who presents today for a f/u... #Lower back pain: Sending patient naproxen 500 mg tablets to be utilized as needed. Emphasized importance of taking this medication with food. Patient's recent CMP demonstrated adequate kidney function. Additionally placing physical therapy referral to [facility] as patient states that as of now she is living with her partner in [place]. #Pancreatic cyst: She states that she is continuously following with gastroenterology due to the incidental finding of pancreatic cyst numerous years ago. Last gastroenterology note we have in file is from 2017, therefore we will obtain recent. Patient had an MRI of her abdomen completed in 2020 that stated cystic lesions in the neck and junction of the neck and body of the pancreas, largest collectively measuring 1.4 x 2.3 cm. 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 #Right knee pain: Continue following with [facility] for injections PRN #Atrial fibrillation: Last cardiology note is from February 2024, EKG performed at that time showed normal sinus rhythm at 73 bpm. Was discontinued sotalol. Warfarin was additionally discontinued, therefore the patient is not anticoagulated at this time.Patient states that she did see cardiology in 2023 #Hyperlipidemia: Continue pravastatin 40 mg #Anxiety: Continue lorazepam 0.5 mg once a day as needed #Esophageal reflux continue Dexilant 60 mg capsules All questions have been answered to patient's satisfaction. Patient verbalized understanding of diagnosis and treatments explained. Advised to call sooner prior to next visit it any questions/concerns arise. Case discussed with Elmer KNOWLES who reviewed the assessment and plan. Chart, medications, labs, vital signs reviewed. Dictation was accomplished with the use of [email or web address] voice recognition software, which is prone to medical misidentifications and grammatical errors. This are unintentional and the practitioner does try to identify and correct these, but some could still be present. Please do not hesitate to contact practitioner for clarification. 10/05/2024 Hyperlipidemia, unspecified (ICD-10 - E78.5) Patient seen and examined. Comprehensive discussion was done on the following. 1. Nutrition: It is important to follow a healthy diet based on lots of vegetables and legumes and good fat. Avoid processed food and processed carbohydrates. Learn to prepare your own meals. Learn to read labels and avoid high fructose corn syrup, processed chemicals added to increase shelf life and preprepared meals. Avoid fast foods. Learn to eat slowly and plan meals for a week. Try to count calories and be mindful off daily calorie intake. Get into the habit of keeping an eye on your weight by using an appropriate scale. Learn to log exercise and discussed fitness Apps like [employer] which can help keep log off calories taken versus calories burned. Local food should be preferred. Discussed Dirty Dozen Versus Clean Fifteen. Discussed healthy supplements like fish oil, Tumeric, Curcumin, Melatonin, Resveratrol, Probiotics, Vitamin-D, Alpha-Lipoic acid, Vitamin-D and coconut oil. 2. It is important to exercise regularly. Is a good habit to walk at least 30-45 minutes a day. Gentle weightlifting with standard precautions to protect the back. Finding activity like cycling or hiking and get into the habit of engaging in it. Stretching before and after the exercises important. It is also important to contact me if there are any problems like shortness of breath, chest pain, back pain and joint or muscle pain associated with the exercise. 3. Discussed age appropriate screening guidelines. Colonoscopy needs to start at age 50 with stool for occult blood as appropriate. There is a new test that can test for genetic abnormalities in the stool sample. This would not replace a colonoscopy but could be used as a screening tool for patients who do not want a colonoscopy. We discussed the importance of early detection of colon cancer. 4. Discussed current guidelines with respect to breast examination, mammogram and pap smear for early detection of breast and cervical cancer. Patient advised to follow up with these appointments. 5. Discussed safe driving and no use of smart phone while driving 6. Age-appropriate immunizations were discussed. A tetanus booster is needed every 10 years. Flu vaccine is recommended every year just before the start of the flu season. Shingles vaccine is recommended after age 50 but not all insurances cover it. Pneumonia vaccine is given after age 65 unless there are certain comorbidities for which it is started earlier. 7. Diagnostic labs were discussed. These could include CBC CMP and lipids with fasting blood glucose and insulin levels. Vitamin D and hemoglobin A1c testing might be appropriate. 09/09/2024 Leg pain, right (ICD-10 - M79.604) Nancy is a pleasant 79-year-old female with a past medical history of arthritis, anemia, anxiety, A-fib, hyperlipidemia, esophageal reflux, hypertension and insomnia who presents today for worsening bilateral lower leg pain, swelling and lumbar spine pain. #Lumbar spine pain: MRI conducted in 2022 states, mild to moderate degenerative changes of the lumbar spine, L2-3 with disc bulging, L3-4, moderate disc bulging and L4-L5 with moderate facet and ligamentum degenerative changes. Patient referred to [facility] at this time as she may benefit from a repeat MRI or cortisone injections. #Bilateral lower leg swelling: + Left ankle with 10 cm and mid calf 14-1/2 cm leg circumference measurement, + Right ankle with 10 cm and mid calf measurement 13 cm. With the difference in leg circumferences, tenderness upon palpation, warmth upon palpation of the left lower extremity a stat rule out DVT ultrasound placed for bilateral lower legs today. If there are no abnormalities upon ultrasound, refer to vascular surgery for further evaluation.Patient is to sign a [facility] emergency department record release, states that she was seen in the emergency department for lower leg swelling a few weeks ago, however we are unsure of what images or treatment was implemented at that time. #Atrial fibrillation: Last cardiology note is from February 2024, EKG performed at that time showed normal sinus rhythm at 73 bpm. Was discontinued sotalol. Warfarin was additionally discontinued, therefore the patient is not anticoagulated at this time. #Hyperlipidemia: Continue pravastatin 40 mg #Anxiety: Continue lorazepam 0.5 mg once a day as needed #Esophageal reflux continue Dexilant 60 mg capsules All questions have been answered to patient's satisfaction. Patient verbalized understanding of diagnosis and treatments explained. Advised to call sooner prior to next visit it any questions/concerns arise. Case discussed with Elmer KNOWLES who reviewed the assessment and plan. Chart, medications, labs, vital signs reviewed. Dictation was accomplished with the use of [email or web address] voice recognition software, which is prone to medical misidentifications and grammatical errors. This are unintentional and the practitioner does try to identify and correct these, but some could still be present. Please do not hesitate to contact practitioner for clarification. 09/09/2024 Leg pain, left (ICD-10 - M79.605) Nancy is a pleasant 79-year-old female with a past medical history of arthritis, anemia, anxiety, A-fib, hyperlipidemia, esophageal reflux, hypertension and insomnia who presents today for worsening bilateral lower leg pain, swelling and lumbar spine pain. #Lumbar spine pain: MRI conducted in 2022 states, mild to moderate degenerative changes of the lumbar spine, L2-3 with disc bulging, L3-4, moderate disc bulging and L4-L5 with moderate facet and ligamentum degenerative changes. Patient referred to [facility] at this time as she may benefit from a repeat MRI or cortisone injections. #Bilateral lower leg swelling: + Left ankle with 10 cm and mid calf 14-1/2 cm leg circumference measurement, + Right ankle with 10 cm and mid calf measurement 13 cm. With the difference in leg circumferences, tenderness upon palpation, warmth upon palpation of the left lower extremity a stat rule out DVT ultrasound placed for bilateral lower legs today. If there are no abnormalities upon ultrasound, refer to vascular surgery for further evaluation.Patient is to sign a [facility] emergency department record release, states that she was seen in the emergency department for lower leg swelling a few weeks ago, however we are unsure of what images or treatment was implemented at that time. #Atrial fibrillation: Last cardiology note is from February 2024, EKG performed at that time showed normal sinus rhythm at 73 bpm. Was discontinued sotalol. Warfarin was additionally discontinued, therefore the patient is not anticoagulated at this time. #Hyperlipidemia: Continue pravastatin 40 mg #Anxiety: Continue lorazepam 0.5 mg once a day as needed #Esophageal reflux continue Dexilant 60 mg capsules All questions have been answered to patient's satisfaction. Patient verbalized understanding of diagnosis and treatments explained. Advised to call sooner prior to next visit it any questions/concerns arise. Case discussed with Elmer KNOWLES who reviewed the assessment and plan. Chart, medications, labs, vital signs reviewed. Dictation was accomplished with the use of [email or web address] voice recognition software, which is prone to medical misidentifications and grammatical errors. This are unintentional and the practitioner does try to identify and correct these, but some could still be present. Please do not hesitate to contact practitioner for clarification. 10/05/2024 Essential (primary) hypertension (ICD-10 - I10) Patient seen and examined. Comprehensive discussion was done on the following. 1. Nutrition: It is important to follow a healthy diet based on lots of vegetables and legumes and good fat. Avoid processed food and processed carbohydrates. Learn to prepare your own meals. Learn to read labels and avoid high fructose corn syrup, processed chemicals added to increase shelf life and preprepared meals. Avoid fast foods. Learn to eat slowly and plan meals for a week. Try to count calories and be mindful off daily calorie intake. Get into the habit of keeping an eye on your weight by using an appropriate scale. Learn to log exercise and discussed fitness Apps like [employer] which can help keep log off calories taken versus calories burned. Local food should be preferred. Discussed [employer] Versus [employer]. Discussed healthy supplements like fish oil, Tumeric, Curcumin, Melatonin, Resveratrol, Probiotics, Vitamin-D, Alpha-Lipoic acid, Vitamin-D and coconut oil. 2. It is important to exercise regularly. Is a good habit to walk at least 30-45 minutes a day. Gentle weightlifting with standard precautions to protect the back. Finding activity like cycling or hiking and get into the habit of engaging in it. Stretching before and after the exercises important. It is also important to contact me if there are any problems like shortness of breath, chest pain, back pain and joint or muscle pain associated with the exercise. 3. Discussed age appropriate screening guidelines. Colonoscopy needs to start at age 50 with stool for occult blood as appropriate. There is a new test that can test for genetic abnormalities in the stool sample. This would not replace a colonoscopy but could be used as a screening tool for patients who do not want a colonoscopy. We discussed the importance of early detection of colon cancer. 4. Discussed current guidelines with respect to breast examination, mammogram and pap smear for early detection of breast and cervical cancer. Patient advised to follow up with these appointments. 5. Discussed safe driving and no use of smart phone while driving 6. Age-appropriate immunizations were discussed. A tetanus booster is needed every 10 years. Flu vaccine is recommended every year just before the start of the flu season. Shingles vaccine is recommended after age 50 but not all insurances cover it. Pneumonia vaccine is given after age 65 unless there are certain comorbidities for which it is started earlier. 7. Diagnostic labs were discussed. These could include CBC CMP and lipids with fasting blood glucose and insulin levels. Vitamin D and hemoglobin A1c testing might be appropriate. 03/15/2025 Leg pain, left (ICD-10 - M79.605) Nancy is a pleasant 80-year-old female with a past medical history of arthritis, anemia, anxiety, A-fib, hyperlipidemia, esophageal reflux, hypertension and insomnia who presents today for worsening bilateral lower leg pain, swelling and lumbar spine pain. #Pancreatic cyst: She states that she is continuously following with gastroenterology due to the incidental finding of pancreatic cyst numerous years ago. Last gastroenterology note we have in file is from 2017, therefore we will obtain recent. Patient had an MRI of her abdomen completed in 2020 that stated cystic lesions in the neck and junction of the neck and body of the pancreas, largest collectively measuring 1.4 x 2.3 cm. 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 Patient referred to [facility] and [email or web address] at this time as she may benefit from a repeat MRI or cortisone injections. #Bilateral lower leg swelling: Resolved.. Had a recent benign US #Right knee pain: Continue following with [facility] and [email or web address] for injections #Atrial fibrillation: Last cardiology note is from February 2024, EKG performed at that time showed normal sinus rhythm at 73 bpm. Was discontinued sotalol. Warfarin was additionally discontinued, therefore the patient is not anticoagulated at this time. #Hyperlipidemia: Continue pravastatin 40 mg #Anxiety: Continue lorazepam 0.5 mg once a day as needed #Esophageal reflux continue Dexilant 60 mg capsules All questions have been answered to patient's satisfaction. Patient verbalized understanding of diagnosis and treatments explained. Advised to call sooner prior to next visit it any questions/concerns arise. Case discussed with Elmer KNOWLES who reviewed the assessment and plan. Chart, medications, labs, vital signs reviewed. Dictation was accomplished with the use of [email or web address] voice recognition software, which is prone to medical misidentifications and grammatical errors. This are unintentional and the practitioner does try to identify and correct these, but some could still be present. Please do not hesitate to contact practitioner for clarification. 06/08/2025 Anxiety (ICD-10 - F41.9) Nancy is a pleasant 80-year-old female with a past medical history of arthritis, anemia, anxiety, A-fib, hyperlipidemia, esophageal reflux, hypertension and insomnia who presents today for a f/u... #Lower back pain: Sending patient naproxen 500 mg tablets to be utilized as needed. Emphasized importance of taking this medication with food. Patient's recent CMP demonstrated adequate kidney function. Additionally placing physical therapy referral to [facility] as patient states that as of now she is living with her partner in [place]. #Pancreatic cyst: She states that she is continuously following with gastroenterology due to the incidental finding of pancreatic cyst numerous years ago. Last gastroenterology note we have in file is from 2017, therefore we will obtain recent. Patient had an MRI of her abdomen completed in 2020 that stated cystic lesions in the neck and junction of the neck and body of the pancreas, largest collectively measuring 1.4 x 2.3 cm. 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 #Right knee pain: Continue following with [facility] for injections PRN #Atrial fibrillation: Last cardiology note is from February 2024, EKG performed at that time showed normal sinus rhythm at 73 bpm. Was discontinued sotalol. Warfarin was additionally discontinued, therefore the patient is not anticoagulated at this time.Patient states that she did see cardiology in 2023 #Hyperlipidemia: Continue pravastatin 40 mg #Anxiety: Continue lorazepam 0.5 mg once a day as needed #Esophageal reflux continue Dexilant 60 mg capsules All questions have been answered to patient's satisfaction. Patient verbalized understanding of diagnosis and treatments explained. Advised to call sooner prior to next visit it any questions/concerns arise. Case discussed with Elmer KNOWLES who reviewed the assessment and plan. Chart, medications, labs, vital signs reviewed. Dictation was accomplished with the use of [email or web address] voice recognition software, which is prone to medical misidentifications and grammatical errors. This are unintentional and the practitioner does try to identify and correct these, but some could still be present. Please do not hesitate to contact practitioner for clarification. 06/08/2025 Obesity, unspecified (ICD-10 - E66.9) Nancy is a pleasant 80-year-old female with a past medical history of arthritis, anemia, anxiety, A-fib, hyperlipidemia, esophageal reflux, hypertension and insomnia who presents today for a f/u... #Lower back pain: Sending patient naproxen 500 mg tablets to be utilized as needed. Emphasized importance of taking this medication with food. Patient's recent CMP demonstrated adequate kidney function. Additionally placing physical therapy referral to [facility] as patient states that as of now she is living with her partner in [place]. #Pancreatic cyst: She states that she is continuously following with gastroenterology due to the incidental finding of pancreatic cyst numerous years ago. Last gastroenterology note we have in file is from 2018, therefore we will obtain recent. Patient had an MRI of her abdomen completed in 2020 that stated cystic lesions in the neck and junction of the neck and body of the pancreas, largest collectively measuring 1.4 x 2.3 cm. 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 #Right knee pain: Continue following with [facility] for injections PRN #Atrial fibrillation: Last cardiology note is from February 2024, EKG performed at that time showed normal sinus rhythm at 73 bpm. Was discontinued sotalol. Warfarin was additionally discontinued, therefore the patient is not anticoagulated at this time.Patient states that she did see cardiology in 2023 #Hyperlipidemia: Continue pravastatin 40 mg #Anxiety: Continue lorazepam 0.5 mg once a day as needed #Esophageal reflux continue Dexilant 60 mg capsules All questions have been answered to patient's satisfaction. Patient verbalized understanding of diagnosis and treatments explained. Advised to call sooner prior to next visit it any questions/concerns arise. Case discussed with Elmer KNOWLES who reviewed the assessment and plan. Chart, medications, labs, vital signs reviewed. Dictation was accomplished with the use of [email or web address] voice recognition software, which is prone to medical misidentifications and grammatical errors. This are unintentional and the practitioner does try to identify and correct these, but some could still be present. Please do not hesitate to contact practitioner for clarification. 03/15/2025 Hyperlipidemia, unspecified (ICD-10 - E78.5) Nancy is a pleasant 80-year-old female with a past medical history of arthritis, anemia, anxiety, A-fib, hyperlipidemia, esophageal reflux, hypertension and insomnia who presents today for worsening bilateral lower leg pain, swelling and lumbar spine pain. #Pancreatic cyst: She states that she is continuously following with gastroenterology due to the incidental finding of pancreatic cyst numerous years ago. Last gastroenterology note we have in file is from 2018, therefore we will obtain recent. Patient had an MRI of her abdomen completed in 2020 that stated cystic lesions in the neck and junction of the neck and body of the pancreas, largest collectively measuring 1.4 x 2.3 cm. 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 Patient referred to [facility] at this time as she may benefit from a repeat MRI or cortisone injections. #Bilateral lower leg swelling: Resolved.. Had a recent benign US #Right knee pain: Continue following with [facility] for injections #Atrial fibrillation: Last cardiology note is from February 2024, EKG performed at that time showed normal sinus rhythm at 73 bpm. Was discontinued sotalol. Warfarin was additionally discontinued, therefore the patient is not anticoagulated at this time. #Hyperlipidemia: Continue pravastatin 40 mg #Anxiety: Continue lorazepam 0.5 mg once a day as needed #Esophageal reflux continue Dexilant 60 mg capsules All questions have been answered to patient's satisfaction. Patient verbalized understanding of diagnosis and treatments explained. Advised to call sooner prior to next visit it any questions/concerns arise. Case discussed with Elmer KNOWLES who reviewed the assessment and plan. Chart, medications, labs, vital signs reviewed. Dictation was accomplished with the use of [email or web address] voice recognition software, which is prone to medical misidentifications and grammatical errors. This are unintentional and the practitioner does try to identify and correct these, but some could still be present. Please do not hesitate to contact practitioner for clarification. 09/09/2024 Hyperlipidemia, unspecified (ICD-10 - E78.5) Nancy is a pleasant 79-year-old female with a past medical history of arthritis, anemia, anxiety, A-fib, hyperlipidemia, esophageal reflux, hypertension and insomnia who presents today for worsening bilateral lower leg pain, swelling and lumbar spine pain. #Lumbar spine pain: MRI conducted in 2022 states, mild to moderate degenerative changes of the lumbar spine, L2-3 with disc bulging, L3-4, moderate disc bulging and L4-L5 with moderate facet and ligamentum degenerative changes. Patient referred to [facility] at this time as she may benefit from a repeat MRI or cortisone injections. #Bilateral lower leg swelling: + Left ankle with 10 cm and mid calf 14-1/2 cm leg circumference measurement, + Right ankle with 10 cm and mid calf measurement 13 cm. With the difference in leg circumferences, tenderness upon palpation, warmth upon palpation of the left lower extremity a stat rule out DVT ultrasound placed for bilateral lower legs today. If there are no abnormalities upon ultrasound, refer to vascular surgery for further evaluation.Patient is to sign a [facility] emergency department record release, states that she was seen in the emergency department for lower leg swelling a few weeks ago, however we are unsure of what images or treatment was implemented at that time. #Atrial fibrillation: Last cardiology note is from February 2024, EKG performed at that time showed normal sinus rhythm at 73 bpm. Was discontinued sotalol. Warfarin was additionally discontinued, therefore the patient is not anticoagulated at this time. #Hyperlipidemia: Continue pravastatin 40 mg #Anxiety: Continue lorazepam 0.5 mg once a day as needed #Esophageal reflux continue Dexilant 60 mg capsules All questions have been answered to patient's satisfaction. Patient verbalized understanding of diagnosis and treatments explained. Advised to call sooner prior to next visit it any questions/concerns arise. Case discussed with Elmer KNOWLES who reviewed the assessment and plan. Chart, medications, labs, vital signs reviewed. Dictation was accomplished with the use of [email or web address] voice recognition software, which is prone to medical misidentifications and grammatical errors. This are unintentional and the practitioner does try to identify and correct these, but some could still be present. Please do not hesitate to contact practitioner for clarification. 09/09/2024 Anxiety (ICD-10 - F41.9) Nancy is a pleasant 79-year-old female with a past medical history of arthritis, anemia, anxiety, A-fib, hyperlipidemia, esophageal reflux, hypertension and insomnia who presents today for worsening bilateral lower leg pain, swelling and lumbar spine pain. #Lumbar spine pain: MRI conducted in 2022 states, mild to moderate degenerative changes of the lumbar spine, L2-3 with disc bulging, L3-4, moderate disc bulging and L4-L5 with moderate facet and ligamentum degenerative changes. Patient referred to [facility] at this time as she may benefit from a repeat MRI or cortisone injections. #Bilateral lower leg swelling: + Left ankle with 10 cm and mid calf 14-1/2 cm leg circumference measurement, + Right ankle with 10 cm and mid calf measurement 13 cm. With the difference in leg circumferences, tenderness upon palpation, warmth upon palpation of the left lower extremity a stat rule out DVT ultrasound placed for bilateral lower legs today. If there are no abnormalities upon ultrasound, refer to vascular surgery for further evaluation.Patient is to sign a [facility] emergency department record release, states that she was seen in the emergency department for lower leg swelling a few weeks ago, however we are unsure of what images or treatment was implemented at that time. #Atrial fibrillation: Last cardiology note is from February 2024, EKG performed at that time showed normal sinus rhythm at 73 bpm. Was discontinued sotalol. Warfarin was additionally discontinued, therefore the patient is not anticoagulated at this time. #Hyperlipidemia: Continue pravastatin 40 mg #Anxiety: Continue lorazepam 0.5 mg once a day as needed #Esophageal reflux continue Dexilant 60 mg capsules All questions have been answered to patient's satisfaction. Patient verbalized understanding of diagnosis and treatments explained. Advised to call sooner prior to next visit it any questions/concerns arise. Case discussed with Elmer KNOWLES who reviewed the assessment and plan. Chart, medications, labs, vital signs reviewed. Dictation was accomplished with the use of [email or web address] voice recognition software, which is prone to medical misidentifications and grammatical errors. This are unintentional and the practitioner does try to identify and correct these, but some could still be present. Please do not hesitate to contact practitioner for clarification. 03/15/2025 Anxiety (ICD-10 - F41.9) Nancy is a pleasant 80-year-old female with a past medical history of arthritis, anemia, anxiety, A-fib, hyperlipidemia, esophageal reflux, hypertension and insomnia who presents today for worsening bilateral lower leg pain, swelling and lumbar spine pain. #Pancreatic cyst: She states that she is continuously following with gastroenterology due to the incidental finding of pancreatic cyst numerous years ago. Last gastroenterology note we have in file is from 2017, therefore we will obtain recent. Patient had an MRI of her abdomen completed in 2020 that stated cystic lesions in the neck and junction of the neck and body of the pancreas, largest collectively measuring 1.4 x 2.3 cm. 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 Patient referred to [facility] at this time as she may benefit from a repeat MRI or cortisone injections. #Bilateral lower leg swelling: Resolved.. Had a recent benign US #Right knee pain: Continue following with [facility] for injections #Atrial fibrillation: Last cardiology note is from February 2024, EKG performed at that time showed normal sinus rhythm at 73 bpm. Was discontinued sotalol. Warfarin was additionally discontinued, therefore the patient is not anticoagulated at this time. #Hyperlipidemia: Continue pravastatin 40 mg #Anxiety: Continue lorazepam 0.5 mg once a day as needed #Esophageal reflux continue Dexilant 60 mg capsules All questions have been answered to patient's satisfaction. Patient verbalized understanding of diagnosis and treatments explained. Advised to call sooner prior to next visit it any questions/concerns arise. Case discussed with Elmer KNOWLES who reviewed the assessment and plan. Chart, medications, labs, vital signs reviewed. Dictation was accomplished with the use of [email or web address] voice recognition software, which is prone to medical misidentifications and grammatical errors. This are unintentional and the practitioner does try to identify and correct these, but some could still be present. Please do not hesitate to contact practitioner for clarification. 06/08/2025 Arthritis (ICD-10 - M19.90) Nancy is a pleasant 80-year-old female with a past medical history of arthritis, anemia, anxiety, A-fib, hyperlipidemia, esophageal reflux, hypertension and insomnia who presents today for a f/u... #Lower back pain: Sending patient naproxen 500 mg tablets to be utilized as needed. Emphasized importance of taking this medication with food. Patient's recent CMP demonstrated adequate kidney function. Additionally placing physical therapy referral to [facility] as patient states that as of now she is living with her partner in [place]. #Pancreatic cyst: She states that she is continuously following with gastroenterology due to the incidental finding of pancreatic cyst numerous years ago. Last gastroenterology note we have in file is from 2018, therefore we will obtain recent. Patient had an MRI of her abdomen completed in 2020 that stated cystic lesions in the neck and junction of the neck and body of the pancreas, largest collectively measuring 1.4 x 2.3 cm. 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 #Right knee pain: Continue following with [facility] for injections PRN #Atrial fibrillation: Last cardiology note is from February 2024, EKG performed at that time showed normal sinus rhythm at 73 bpm. Was discontinued sotalol. Warfarin was additionally discontinued, therefore the patient is not anticoagulated at this time.Patient states that she did see cardiology in 2023 #Hyperlipidemia: Continue pravastatin 40 mg #Anxiety: Continue lorazepam 0.5 mg once a day as needed #Esophageal reflux continue Dexilant 60 mg capsules All questions have been answered to patient's satisfaction. Patient verbalized understanding of diagnosis and treatments explained. Advised to call sooner prior to next visit it any questions/concerns arise. Case discussed with Elmer KNOWLES who reviewed the assessment and plan. Chart, medications, labs, vital signs reviewed. Dictation was accomplished with the use of [email or web address] voice recognition software, which is prone to medical misidentifications and grammatical errors. This are unintentional and the practitioner does try to identify and correct these, but some could still be present. Please do not hesitate to contact practitioner for clarification. 06/08/2025 Degeneration of intervertebral disc of lumbar region with lower extremity pain (ICD-10 - M51.361) Nancy is a pleasant 80-year-old female with a past medical history of arthritis, anemia, anxiety, A-fib, hyperlipidemia, esophageal reflux, hypertension and insomnia who presents today for a f/u... #Lower back pain: Sending patient naproxen 500 mg tablets to be utilized as needed. Emphasized importance of taking this medication with food. Patient's recent CMP demonstrated adequate kidney function. Additionally placing physical therapy referral to [facility] as patient states that as of now she is living with her partner in [place]. #Pancreatic cyst: She states that she is continuously following with gastroenterology due to the incidental finding of pancreatic cyst numerous years ago. Last gastroenterology note we have in file is from 2017, therefore we will obtain recent. Patient had an MRI of her abdomen completed in 2020 that stated cystic lesions in the neck and junction of the neck and body of the pancreas, largest collectively measuring 1.4 x 2.3 cm. 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 #Right knee pain: Continue following with [facility] for injections PRN #Atrial fibrillation: Last cardiology note is from February 2024, EKG performed at that time showed normal sinus rhythm at 73 bpm. Was discontinued sotalol. Warfarin was additionally discontinued, therefore the patient is not anticoagulated at this time.Patient states that she did see cardiology in 2023 #Hyperlipidemia: Continue pravastatin 40 mg #Anxiety: Continue lorazepam 0.5 mg once a day as needed #Esophageal reflux continue Dexilant 60 mg capsules All questions have been answered to patient's satisfaction. Patient verbalized understanding of diagnosis and treatments explained. Advised to call sooner prior to next visit it any questions/concerns arise. Case discussed with Elmer KNOWLES who reviewed the assessment and plan. Chart, medications, labs, vital signs reviewed. Dictation was accomplished with the use of [email or web address] voice recognition software, which is prone to medical misidentifications and grammatical errors. This are unintentional and the practitioner does try to identify and correct these, but some could still be present. Please do not hesitate to contact practitioner for clarification. 03/15/2025 Obesity, unspecified (ICD-10 - E66.9) Nancy is a pleasant 80-year-old female with a past medical history of arthritis, anemia, anxiety, A-fib, hyperlipidemia, esophageal reflux, hypertension and insomnia who presents today for worsening bilateral lower leg pain, swelling and lumbar spine pain. #Pancreatic cyst: She states that she is continuously following with gastroenterology due to the incidental finding of pancreatic cyst numerous years ago. Last gastroenterology note we have in file is from 2017, therefore we will obtain recent. Patient had an MRI of her abdomen completed in 2020 that stated cystic lesions in the neck and junction of the neck and body of the pancreas, largest collectively measuring 1.4 x 2.3 cm. 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 Patient referred to [facility] and [email or web address] at this time as she may benefit from a repeat MRI or cortisone injections. #Bilateral lower leg swelling: Resolved.. Had a recent benign US #Right knee pain: Continue following with [facility] for injections #Atrial fibrillation: Last cardiology note is from February 2024, EKG performed at that time showed normal sinus rhythm at 73 bpm. Was discontinued sotalol. Warfarin was additionally discontinued, therefore the patient is not anticoagulated at this time. #Hyperlipidemia: Continue pravastatin 40 mg #Anxiety: Continue lorazepam 0.5 mg once a day as needed #Esophageal reflux continue Dexilant 60 mg capsules All questions have been answered to patient's satisfaction. Patient verbalized understanding of diagnosis and treatments explained. Advised to call sooner prior to next visit it any questions/concerns arise. Case discussed with Elmer KNOWLES who reviewed the assessment and plan. Chart, medications, labs, vital signs reviewed. Dictation was accomplished with the use of [email or web address] voice recognition software, which is prone to medical misidentifications and grammatical errors. This are unintentional and the practitioner does try to identify and correct these, but some could still be present. Please do not hesitate to contact practitioner for clarification. 09/09/2024 Obesity, unspecified (ICD-10 - E66.9) Nancy is a pleasant 79-year-old female with a past medical history of arthritis, anemia, anxiety, A-fib, hyperlipidemia, esophageal reflux, hypertension and insomnia who presents today for worsening bilateral lower leg pain, swelling and lumbar spine pain. #Lumbar spine pain: MRI conducted in 2022 states, mild to moderate degenerative changes of the lumbar spine, L2-3 with disc bulging, L3-4, moderate disc bulging and L4-L5 with moderate facet and ligamentum degenerative changes. Patient referred to [facility] at this time as she may benefit from a repeat MRI or cortisone injections. #Bilateral lower leg swelling: + Left ankle with 10 cm and mid calf 14-1/2 cm leg circumference measurement, + Right ankle with 10 cm and mid calf measurement 13 cm. With the difference in leg circumferences, tenderness upon palpation, warmth upon palpation of the left lower extremity a stat rule out DVT ultrasound placed for bilateral lower legs today. If there are no abnormalities upon ultrasound, refer to vascular surgery for further evaluation.Patient is to sign a [facility] emergency department record release, states that she was seen in the emergency department for lower leg swelling a few weeks ago, however we are unsure of what images or treatment was implemented at that time. #Atrial fibrillation: Last cardiology note is from February 2024, EKG performed at that time showed normal sinus rhythm at 73 bpm. Was discontinued sotalol. Warfarin was additionally discontinued, therefore the patient is not anticoagulated at this time. #Hyperlipidemia: Continue pravastatin 40 mg #Anxiety: Continue lorazepam 0.5 mg once a day as needed #Esophageal reflux continue Dexilant 60 mg capsules All questions have been answered to patient's satisfaction. Patient verbalized understanding of diagnosis and treatments explained. Advised to call sooner prior to next visit it any questions/concerns arise. Case discussed with Elmer KNOWLES who reviewed the assessment and plan. Chart, medications, labs, vital signs reviewed. Dictation was accomplished with the use of [email or web address] voice recognition software, which is prone to medical misidentifications and grammatical errors. This are unintentional and the practitioner does try to identify and correct these, but some could still be present. Please do not hesitate to contact practitioner for clarification. 09/09/2024 Arthritis (ICD-10 - M19.90) Nancy is a pleasant 79-year-old female with a past medical history of arthritis, anemia, anxiety, A-fib, hyperlipidemia, esophageal reflux, hypertension and insomnia who presents today for worsening bilateral lower leg pain, swelling and lumbar spine pain. #Lumbar spine pain: MRI conducted in 2022 states, mild to moderate degenerative changes of the lumbar spine, L2-3 with disc bulging, L3-4, moderate disc bulging and L4-L5 with moderate facet and ligamentum degenerative changes. Patient referred to [facility] at this time as she may benefit from a repeat MRI or cortisone injections. #Bilateral lower leg swelling: + Left ankle with 10 cm and mid calf 14-1/2 cm leg circumference measurement, + Right ankle with 10 cm and mid calf measurement 13 cm. With the difference in leg circumferences, tenderness upon palpation, warmth upon palpation of the left lower extremity a stat rule out DVT ultrasound placed for bilateral lower legs today. If there are no abnormalities upon ultrasound, refer to vascular surgery for further evaluation.Patient is to sign a [facility] emergency department record release, states that she was seen in the emergency department for lower leg swelling a few weeks ago, however we are unsure of what images or treatment was implemented at that time. #Atrial fibrillation: Last cardiology note is from February 2024, EKG performed at that time showed normal sinus rhythm at 73 bpm. Was discontinued sotalol. Warfarin was additionally discontinued, therefore the patient is not anticoagulated at this time. #Hyperlipidemia: Continue pravastatin 40 mg #Anxiety: Continue lorazepam 0.5 mg once a day as needed #Esophageal reflux continue Dexilant 60 mg capsules All questions have been answered to patient's satisfaction. Patient verbalized understanding of diagnosis and treatments explained. Advised to call sooner prior to next visit it any questions/concerns arise. Case discussed with Elmer KNOWLES who reviewed the assessment and plan. Chart, medications, labs, vital signs reviewed. Dictation was accomplished with the use of [email or web address] voice recognition software, which is prone to medical misidentifications and grammatical errors. This are unintentional and the practitioner does try to identify and correct these, but some could still be present. Please do not hesitate to contact practitioner for clarification. 06/08/2025 Vitamin D deficiency (ICD-10 - E55.9) Nancy is a pleasant 80-year-old female with a past medical history of arthritis, anemia, anxiety, A-fib, hyperlipidemia, esophageal reflux, hypertension and insomnia who presents today for a f/u... #Lower back pain: Sending patient naproxen 500 mg tablets to be utilized as needed. Emphasized importance of taking this medication with food. Patient's recent CMP demonstrated adequate kidney function. Additionally placing physical therapy referral to [facility] as patient states that as of now she is living with her partner in [place]. #Pancreatic cyst: She states that she is continuously following with gastroenterology due to the incidental finding of pancreatic cyst numerous years ago. Last gastroenterology note we have in file is from 2018, therefore we will obtain recent. Patient had an MRI of her abdomen completed in 2020 that stated cystic lesions in the neck and junction of the neck and body of the pancreas, largest collectively measuring 1.4 x 2.3 cm. 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 #Right knee pain: Continue following with [facility] for injections PRN #Atrial fibrillation: Last cardiology note is from February 2024, EKG performed at that time showed normal sinus rhythm at 73 bpm. Was discontinued sotalol. Warfarin was additionally discontinued, therefore the patient is not anticoagulated at this time.Patient states that she did see cardiology in 2023 #Hyperlipidemia: Continue pravastatin 40 mg #Anxiety: Continue lorazepam 0.5 mg once a day as needed #Esophageal reflux continue Dexilant 60 mg capsules All questions have been answered to patient's satisfaction. Patient verbalized understanding of diagnosis and treatments explained. Advised to call sooner prior to next visit it any questions/concerns arise. Case discussed with Elmer KNOWLES who reviewed the assessment and plan. Chart, medications, labs, vital signs reviewed. Dictation was accomplished with the use of [email or web address] voice recognition software, which is prone to medical misidentifications and grammatical errors. This are unintentional and the practitioner does try to identify and correct these, but some could still be present. Please do not hesitate to contact practitioner for clarification. 03/15/2025 Arthritis (ICD-10 - M19.90) Nancy is a pleasant 80-year-old female with a past medical history of arthritis, anemia, anxiety, A-fib, hyperlipidemia, esophageal reflux, hypertension and insomnia who presents today for worsening bilateral lower leg pain, swelling and lumbar spine pain. #Pancreatic cyst: She states that she is continuously following with gastroenterology due to the incidental finding of pancreatic cyst numerous years ago. Last gastroenterology note we have in file is from 2017, therefore we will obtain recent. Patient had an MRI of her abdomen completed in 2020 that stated cystic lesions in the neck and junction of the neck and body of the pancreas, largest collectively measuring 1.4 x 2.3 cm. 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 Patient referred to [facility] at this time as she may benefit from a repeat MRI or cortisone injections. #Bilateral lower leg swelling: Resolved.. Had a recent benign US #Right knee pain: Continue following with [facility] for injections #Atrial fibrillation: Last cardiology note is from February 2024, EKG performed at that time showed normal sinus rhythm at 73 bpm. Was discontinued sotalol. Warfarin was additionally discontinued, therefore the patient is not anticoagulated at this time. #Hyperlipidemia: Continue pravastatin 40 mg #Anxiety: Continue lorazepam 0.5 mg once a day as needed #Esophageal reflux continue Dexilant 60 mg capsules All questions have been answered to patient's satisfaction. Patient verbalized understanding of diagnosis and treatments explained. Advised to call sooner prior to next visit it any questions/concerns arise. Case discussed with Elmer KNOWLES who reviewed the assessment and plan. Chart, medications, labs, vital signs reviewed. Dictation was accomplished with the use of [email or web address] voice recognition software, which is prone to medical misidentifications and grammatical errors. This are unintentional and the practitioner does try to identify and correct these, but some could still be present. Please do not hesitate to contact practitioner for clarification. 06/08/2025 Encounter for examination of blood pressure without abnormal findings (ICD-10 - Z01.30) Nancy is a pleasant 80-year-old female with a past medical history of arthritis, anemia, anxiety, A-fib, hyperlipidemia, esophageal reflux, hypertension and insomnia who presents today for a f/u... #Lower back pain: Sending patient naproxen 500 mg tablets to be utilized as needed. Emphasized importance of taking this medication with food. Patient's recent CMP demonstrated adequate kidney function. Additionally placing physical therapy referral to [facility] as patient states that as of now she is living with her partner in [place]. #Pancreatic cyst: She states that she is continuously following with gastroenterology due to the incidental finding of pancreatic cyst numerous years ago. Last gastroenterology note we have in file is from 2017, therefore we will obtain recent. Patient had an MRI of her abdomen completed in 2020 that stated cystic lesions in the neck and junction of the neck and body of the pancreas, largest collectively measuring 1.4 x 2.3 cm. 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 #Right knee pain: Continue following with [facility] for injections PRN #Atrial fibrillation: Last cardiology note is from February 2024, EKG performed at that time showed normal sinus rhythm at 73 bpm. Was discontinued sotalol. Warfarin was additionally discontinued, therefore the patient is not anticoagulated at this time.Patient states that she did see cardiology in 2023 #Hyperlipidemia: Continue pravastatin 40 mg #Anxiety: Continue lorazepam 0.5 mg once a day as needed #Esophageal reflux continue Dexilant 60 mg capsules All questions have been answered to patient's satisfaction. Patient verbalized understanding of diagnosis and treatments explained. Advised to call sooner prior to next visit it any questions/concerns arise. Case discussed with Elmer KNOWLES who reviewed the assessment and plan. Chart, medications, labs, vital signs reviewed. Dictation was accomplished with the use of [email or web address] voice recognition software, which is prone to medical misidentifications and grammatical errors. This are unintentional and the practitioner does try to identify and correct these, but some could still be present. Please do not hesitate to contact practitioner for clarification. 03/15/2025 Degeneration of intervertebral disc of lumbar region with lower extremity pain (ICD-10 - M51.361) Nancy is a pleasant 80-year-old female with a past medical history of arthritis, anemia, anxiety, A-fib, hyperlipidemia, esophageal reflux, hypertension and insomnia who presents today for worsening bilateral lower leg pain, swelling and lumbar spine pain. #Pancreatic cyst: She states that she is continuously following with gastroenterology due to the incidental finding of pancreatic cyst numerous years ago. Last gastroenterology note we have in file is from 2018, therefore we will obtain recent. Patient had an MRI of her abdomen completed in 2020 that stated cystic lesions in the neck and junction of the neck and body of the pancreas, largest collectively measuring 1.4 x 2.3 cm. 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 Patient referred to [email or web address] at this time as she may benefit from a repeat MRI or cortisone injections. #Bilateral lower leg swelling: Resolved.. Had a recent benign US #Right knee pain: Continue following with [facility] for injections #Atrial fibrillation: Last cardiology note is from February 2024, EKG performed at that time showed normal sinus rhythm at 73 bpm. Was discontinued sotalol. Warfarin was additionally discontinued, therefore the patient is not anticoagulated at this time. #Hyperlipidemia: Continue pravastatin 40 mg #Anxiety: Continue lorazepam 0.5 mg once a day as needed #Esophageal reflux continue Dexilant 60 mg capsules All questions have been answered to patient's satisfaction. Patient verbalized understanding of diagnosis and treatments explained. Advised to call sooner prior to next visit it any questions/concerns arise. Case discussed with Elmer KNOWLES who reviewed the assessment and plan. Chart, medications, labs, vital signs reviewed. Dictation was accomplished with the use of [email or web address] voice recognition software, which is prone to medical misidentifications and grammatical errors. This are unintentional and the practitioner does try to identify and correct these, but some could still be present. Please do not hesitate to contact practitioner for clarification. 09/09/2024 Degeneration of intervertebral disc of lumbar region with lower extremity pain (ICD-10 - M51.361) Nancy is a pleasant 79-year-old female with a past medical history of arthritis, anemia, anxiety, A-fib, hyperlipidemia, esophageal reflux, hypertension and insomnia who presents today for worsening bilateral lower leg pain, swelling and lumbar spine pain. #Lumbar spine pain: MRI conducted in 2022 states, mild to moderate degenerative changes of the lumbar spine, L2-3 with disc bulging, L3-4, moderate disc bulging and L4-L5 with moderate facet and ligamentum degenerative changes. Patient referred to [email or web address] at this time as she may benefit from a repeat MRI or cortisone injections. #Bilateral lower leg swelling: + Left ankle with 10 cm and mid calf 14-1/2 cm leg circumference measurement, + Right ankle with 10 cm and mid calf measurement 13 cm. With the difference in leg circumferences, tenderness upon palpation, warmth upon palpation of the left lower extremity a stat rule out DVT ultrasound placed for bilateral lower legs today. If there are no abnormalities upon ultrasound, refer to vascular surgery for further evaluation.Patient is to sign a [facility] emergency department record release, states that she was seen in the emergency department for lower leg swelling a few weeks ago, however we are unsure of what images or treatment was implemented at that time. #Atrial fibrillation: Last cardiology note is from February 2024, EKG performed at that time showed normal sinus rhythm at 73 bpm. Was discontinued sotalol. Warfarin was additionally discontinued, therefore the patient is not anticoagulated at this time. #Hyperlipidemia: Continue pravastatin 40 mg #Anxiety: Continue lorazepam 0.5 mg once a day as needed #Esophageal reflux continue Dexilant 60 mg capsules All questions have been answered to patient's satisfaction. Patient verbalized understanding of diagnosis and treatments explained. Advised to call sooner prior to next visit it any questions/concerns arise. Case discussed with Elmer KNOWLES who reviewed the assessment and plan. Chart, medications, labs, vital signs reviewed. Dictation was accomplished with the use of [email or web address] voice recognition software, which is prone to medical misidentifications and grammatical errors. This are unintentional and the practitioner does try to identify and correct these, but some could still be present. Please do not hesitate to contact practitioner for clarification. 03/15/2025 Vitamin D deficiency, unspecified (ICD-10 - E55.9) Nancy is a pleasant 80-year-old female with a past medical history of arthritis, anemia, anxiety, A-fib, hyperlipidemia, esophageal reflux, hypertension and insomnia who presents today for worsening bilateral lower leg pain, swelling and lumbar spine pain. #Pancreatic cyst: She states that she is continuously following with gastroenterology due to the incidental finding of pancreatic cyst numerous years ago. Last gastroenterology note we have in file is from 2018, therefore we will obtain recent. Patient had an MRI of her abdomen completed in 2020 that stated cystic lesions in the neck and junction of the neck and body of the pancreas, largest collectively measuring 1.4 x 2.3 cm. 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 Patient referred to [facility] at this time as she may benefit from a repeat MRI or cortisone injections. #Bilateral lower leg swelling: Resolved.. Had a recent benign US #Right knee pain: Continue following with [facility] for injections #Atrial fibrillation: Last cardiology note is from February 2024, EKG performed at that time showed normal sinus rhythm at 73 bpm. Was discontinued sotalol. Warfarin was additionally discontinued, therefore the patient is not anticoagulated at this time. #Hyperlipidemia: Continue pravastatin 40 mg #Anxiety: Continue lorazepam 0.5 mg once a day as needed #Esophageal reflux continue Dexilant 60 mg capsules All questions have been answered to patient's satisfaction. Patient verbalized understanding of diagnosis and treatments explained. Advised to call sooner prior to next visit it any questions/concerns arise. Case discussed with Elmer KNOWLES who reviewed the assessment and plan. Chart, medications, labs, vital signs reviewed. Dictation was accomplished with the use of [email or web address] voice recognition software, which is prone to medical misidentifications and grammatical errors. This are unintentional and the practitioner does try to identify and correct these, but some could still be present. Please do not hesitate to contact practitioner for clarification. 03/15/2025 Encounter for examination of blood pressure without abnormal findings (ICD-10 - Z01.30) Nancy is a pleasant 80-year-old female with a past medical history of arthritis, anemia, anxiety, A-fib, hyperlipidemia, esophageal reflux, hypertension and insomnia who presents today for worsening bilateral lower leg pain, swelling and lumbar spine pain. #Pancreatic cyst: She states that she is continuously following with gastroenterology due to the incidental finding of pancreatic cyst numerous years ago. Last gastroenterology note we have in file is from 2018, therefore we will obtain recent. Patient had an MRI of her abdomen completed in 2020 that stated cystic lesions in the neck and junction of the neck and body of the pancreas, largest collectively measuring 1.4 x 2.3 cm. 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 Patient referred to [facility] at this time as she may benefit from a repeat MRI or cortisone injections. #Bilateral lower leg swelling: Resolved.. Had a recent benign US #Right knee pain: Continue following with [facility] for injections #Atrial fibrillation: Last cardiology note is from February 2024, EKG performed at that time showed normal sinus rhythm at 73 bpm. Was discontinued sotalol. Warfarin was additionally discontinued, therefore the patient is not anticoagulated at this time. #Hyperlipidemia: Continue pravastatin 40 mg #Anxiety: Continue lorazepam 0.5 mg once a day as needed #Esophageal reflux continue Dexilant 60 mg capsules All questions have been answered to patient's satisfaction. Patient verbalized understanding of diagnosis and treatments explained. Advised to call sooner prior to next visit it any questions/concerns arise. Case discussed with Elmer KNOWLES who reviewed the assessment and plan. Chart, medications, labs, vital signs reviewed. Dictation was accomplished with the use of [email or web address] voice recognition software, which is prone to medical misidentifications and grammatical errors. This are unintentional and the practitioner does try to identify and correct these, but some could still be present. Please do not hesitate to contact practitioner for clarification. Plan Of Treatment Pending Test Test Name Order Date X ray : Hip, left 11/19/2022 Vitamin D, 25-Hydroxy 10/30/2018 Lipid Panel 10/13/2018 CBC 10/13/2018 Bone Density 09/10/2019 MRI : Abdomen with and without Contrast 11/09/2020 MRI : Lumbar without contrast 02/22/2023 25 HYDROXY VITAMIN D2 D3 11/28/2020 CBC (COMPLETE BLOOD COUNT) 11/28/2020 CBC (COMPLETE BLOOD COUNT) 03/20/2021 CBC (COMPLETE BLOOD COUNT) 10/30/2018 COMPREHENSIVE METABOLIC PANEL 10/30/2018 COMPREHENSIVE METABOLIC PANEL 11/28/2020 COMPREHENSIVE METABOLIC PANEL 10/13/2018 HEMOGLOBIN A1C 10/13/2018 HEMOGLOBIN A1C 10/30/2018 INSULIN 11/28/2020 INSULIN, FREE 10/30/2018 LIPID PANEL 10/30/2018 LIPID PANEL 11/28/2020 TSH WITH REFLEX TO FT4 10/30/2018 US Head/Neck Soft Tissue 10/30/2018 XR Hip 2+ Vws LT 10/17/2022 XR Knee 3 Views LT 10/29/2019 XR Tibia/Fibula 2 Views LT 06/17/2024 LIPID PANEL, STANDARD 02/17/2024 LIPID PANEL, STANDARD 10/05/2024 LIPID PANEL, STANDARD 03/15/2025 LIPID PANEL, STANDARD 06/08/2025 LIPID PANEL, STANDARD 12/20/2021 LIPID PANEL, STANDARD 03/25/2023 COMPREHENSIVE METABOLIC PANEL 02/17/2024 COMPREHENSIVE METABOLIC PANEL 03/25/2023 COMPREHENSIVE METABOLIC PANEL 12/20/2021 COMPREHENSIVE METABOLIC PANEL 06/08/2025 COMPREHENSIVE METABOLIC PANEL 03/15/2025 COMPREHENSIVE METABOLIC PANEL 10/05/2024 CBC (INCLUDES DIFF/PLT) 10/05/2024 CBC (INCLUDES DIFF/PLT) 03/15/2025 CBC (INCLUDES DIFF/PLT) 06/08/2025 CBC (INCLUDES DIFF/PLT) 12/20/2021 CBC (INCLUDES DIFF/PLT) 03/25/2023 CBC (INCLUDES DIFF/PLT) 02/17/2024 URINALYSIS, COMPLETE 02/17/2024 URINALYSIS, COMPLETE 03/15/2025 URINALYSIS, COMPLETE 10/05/2024 URINALYSIS, COMPLETE 03/25/2023 HEMOGLOBIN A1c 03/25/2023 INSULIN 03/25/2023 INSULIN 12/20/2021 VITAMIN B12 03/15/2025 VITAMIN B12 06/08/2025 VITAMIN D,25-OH,TOTAL,IA 06/08/2025 VITAMIN D,25-OH,TOTAL,IA 03/15/2025 VITAMIN D,25-OH,TOTAL,IA 12/20/2021 VITAMIN D,25-OH,TOTAL,IA 03/25/2023 US Abdomen 04/22/2020 US Carotid Duplex Bilat Complt US Duplex Venous Study Bilat 09/09/2024 TSH+T4F+T3Free 03/15/2025 TSH+T3+Free T4+T3 Free 06/08/2025 Next Appt Details Provider Name:ANDI NASSARR, 01:00:00 PM, [address], [place], [address], Provider Name:ANDI CYR, 02:00:00 PM, [address], [place], [address], Insurance Providers Payer Name Payer Address Payer Phone Subscriber Number Group Number Insured Name Patient Relationship to Insured Coverage Start Date Coverage End Date Medicare Part B [id number] [address] [place] [id number] NANCY REYNOLDS Self - patient is the insured [employer] [address] [place] [id number] NANCY REYNOLDS Self - patient is the insured Medical (General) History Medical History History ICD Code anemia anxiety Atrial fibrillation hypertension insomnia Anxiety F41.9 Hyperlipidemia E78.5 Gastro-esophageal reflux disease without esophagitis K21.9 Arthritis M19.90 Surgical History Surgery Date(Month/Year) cholecystectomy lasik hysterectomy colonoscopy 3 years cardiac ablation Hospitalization History Reason Date(Month/Year) SAME SURGICAL
== END 2025-07-01 15:53 | disposition home or self-care (01) ==
PROVIDERS: Visit Provider Urology
DX: R35.0 Frequency of micturition (principal)

== ENCOUNTER 2025-07-28 07:22 | Outpatient (REF) | payer MEDICARE, OTHER, SELFPAY ==
--- OUTSIDE RECORDS SUMMARY | 2024-06-17 11:15 | XMS_ITS ---
Author Organization [facility] [address] [address] Address [address] [place] [address] Care Team Providers Care Jet Inspector Name Role Phone MONTANA AKINS Primary Care Provider [phone] ANDI RICHARDSON Unavailable [phone] DEBORA VELAZQUEZ [phone] Medications Medication SIG (Take, Route, Frequency, Duration) Notes Start Date End Date Status Tums 500 MG 1 tablet Orally Once a day; Duration: 30 day(s) Active LORazepam 0.5 MG 1 tablet Once a day in the evening Orally as needed; Duration: 30 days 06/05/2024 Active Pravastatin Sodium 40 MG 1 tablet Orally Once a day; Duration: 90 days Active amLODIPine Besylate 5 MG 1 tablet Orally Once a day; Duration: 90 days 08/11/2018 Active Meclizine HCl 25 MG 1 tablet as needed Orally Once a day; Duration: 30 day(s) 05/25/2020 Active Warfarin Sodium 7.5 MG 1 tablet Orally Once a day 7.5 mg Mon, Wed, Sat; 5mg every other day Active Dexilant 60 MG 1 capsule Orally Once a day; Duration: 30 day(s) undefined 08/08/2018 Active Fluticasone Propionate 50 MCG/ACT 1 spray in each nostril Nasally Once a day; Duration: 30 day(s) Active Encounters Encounter Location Date Provider Diagnosis [facility] [address] [place] [address] 06/17/2024 DEBORA VELAZQUEZ Plan Of Treatment Next Appt Details Provider Name:ANDI RICHARDSON 01:00:00 PM, [address], [place], [address], Provider Name:ANDI RICHARDSON, 02:00:00 PM, [address], [place], [address], Progress Notes * MAXIMO REYNOLDSOB:1945 (80 yo F)Acc No.[id number]:06/17/2024 Progress Notes Patient: NANCY CORDOVA Provider: Giancarlo VELAZQUEZ :1945 A ge:79 Y S ex:Female Date:06/17/2024 Address:[address] [place] [address] , [facility], [id number] Pcp:MONTANA AKINS Subjective: * Chief Complaints: * * Medical History: * Medications: T aking Warfarin Sodium 7.5 MG Tablet 1 tablet Orally Once a day , Notes to Pharmacist: 7.5 mg Mon, Wed, Sat; 5mg every other day, Taking Fluticasone Propionate 50 MCG/ACT Suspension 1 spray in each nostril Nasally Once a day , Taking Dexilant 60 MG Capsule Delayed Release 1 capsule Orally Once a day , Notes to Pharmacist: undefined, Taking Tums 500 MG Tablet Chewable 1 tablet Orally Once a day , Taking Meclizine HCl 25 MG Tablet 1 tablet as needed Orally Once a day , Taking amLODIPine Besylate 5 MG Tablet 1 tablet Orally Once a day , Taking Pravastatin Sodium 40 MG Tablet 1 tablet Orally Once a day , Taking LORazepam 0.5 MG Tablet 1 tablet Once a day in the evening Orally as needed Objective: * Vitals: Assessment: Plan: * Treatment: Care Plan: * Problems: * Images: Billing Information: * Visit Code: * Procedure Codes: Care Plan Details* * Electronic signature of CHARLEY VELAZQUEZ PA-C, [id number] on 07/28/2025 at 07:24 AM EDT Sign off status: Pending * Provider: Giancarlo VELAZQUEZ Date: 0 06/17/2024 Generated for Pierce little/Inés/Diana on: 07:24 AM EDT
--- OUTSIDE RECORDS SUMMARY | 2025-02-02 10:00 | XMS_ITS ---
Author Organization [facility] [address] Address [address] [facility] [place] [address] Care Team Providers Care Wool Grader Name Role Phone MONTANA AKINS Primary Care Provider ANDI RICHARDSON [phone] REASON FOR VISIT 4 month f/u Encounters Encounter Location Date Provider Diagnosis [facility] [address] [place] [address] 02/02/2025 ANDI RICHARDSON Plan Of Treatment Next Appt Details Provider Name:ANDI RICHARDSON, 01:00:00 PM, [address], [place], [address], Provider Name:ANDI RICHARDSON, 02:00:00 PM, [address], [place], [address], Progress Notes * LINH REYNOLDSENDOB:1945 (80 yo F)Acc No.[id number]:02/02/2025 Progress Notes Patient: NANCY CORDOVA Provider: Lance RICHARDSON PA-C :1945 A ge:80 Y S ex:Female Date:02/02/2025 Address:[facility] [address] [id number] Pcp:MONTANA AKINS Subjective: * Chief Complaints: * 1 . 4 month f/u. * Medical History: Objective: * Vitals: Assessment: Plan: * Treatment: * Images: Billing Information: * Visit Code: * Procedure Codes: Care Plan Details* * Electronic signature of PEDRO RICHARDSON PA-C on 07/28/2025 at 07:24 AM EDT Sign off status: Pending * Provider: Lance RICHARDSON PA-C Date: 0 02/02/2025 Generated for Pierce little/Inés/Diana on: 1 07:24 AM EDT
--- OUTSIDE RECORDS SUMMARY | 2025-07-28 07:24 | XMS_ITS | Patient Health Record ---
Author Organization [facility] [address] Address [address] [place] [address] Care Team Providers Care Horticultural Manager Name Role Phone AKINS, [place] Primary Care Provider ANDI RICHARDSON Unavailable [phone] RICHIE AKINS Unavailable [phone] ALVAREZ HUYNH Unavailable [phone] SONAM BRAGA Unavailable [phone] RYAN HUGGINS Unavailable [phone] Allergies Allergen (clinical drug ingredient) Drug/Non Drug Allergy documented on EMR Reaction Allergy Type Onset Date Status benzocaine (uncoded) Unknown Allergy Active pcn (uncoded) Unknown Allergy Active Results Component Value Reference Range Notes Comp. Metabolic Panel [id number] Reviewed date:10/05/2024 09:57:53 AM Interpretation: Performing Lab:[facility], [address] [place] [address], [place], Phone - [phone], Director - Allan Notes/Report: Glucose 96 70-99 [...] (SGPT) 12 0-32 IU/L CBC With Differential/Platel et-[id number] Reviewed date:10/05/2024 09:57:53 AM Interpretation: Performing Lab:[facility] [place], [address] [facility], Phone - [phone], Director - MDJodry Notes/Report: WBC 4.9 3.4-10.8 [...] Immature Grans (Abs) 0.0 0.0-0.1 x10E3/uL Urinalysis, Routine-[id number] Reviewed date:10/05/2024 10:02:49 AM Interpretation: Performing Lab:[facility] [place], [address] [facility], [place], Phone - [phone], Director - Angusy Notes/Report: Specific [place] 1.024 1.005-1.030 pH 5.5 5.0-7.5 Urine-Color Yellow [...] 11:17:43 AM > faxed pt info to [facility] in [facility]. p) [phone] f) [phone] Referral Priority Routine Reason evaluate & treat Diagnosis 1 Back pain, unspecifi ed back location, unspecified back pain laterality, unspecified chronicity (M54.9) [facility] Referring Provider First Name ANDI Referring Provider Last Name DEBRA Referring Provider Speciality Internal edicine Referred Provider Specialty Pain Medicin e Clinical Notes Juanjo Chan 01/2024 11:31:13 AM > faxed pt info to [facility]. p) [phone] f) [phone], Chikis Crespo 10/22/2024 03:44:27 PM > The patient was seen on 09/22/24 Referral Priority Routine Reason Frequency with [facility] u ro Diagnosis 1 Frequency of urinati on (R35.0) [facility] Referring Provider First Name [place] Referring Provider Last Name TASHI Referring Provider Speciality Internal M edicine Referred Provider Specialty Urology General Notes [facility], [address]; [facility] , P [phone], F [phone] Clinical Notes Susanne Gupta 2024 12:29:20 PM >Referral with note and labs sent to [facility] uro. Paper copy mailed to pt for record. TYZak Garcia Redena 12/09/2024 02:27:59 PM > Scheduled for 02/25 at 11 am. Pt aware Referral Priority Routine Reason Evaluate & Treat Diagnosis 1 Back pain, unspecifi ed back location, unspecified back pain laterality, unspecified chronicity (M54.9) Referral Organization [facility] Referring Provider First Name ANDI Referring Provider Last Name DEBRA Referring Provider Speciality Internal edicine Referred Provider Specialty Physical The [facility] General Notes Racquel Oneill 0 06/08/2025 11:45:29 AM > Referral to [facility] and faxed, p. [phone], f. [phone] Referral Priority Routine Diagnosis 1 Pain in right knee ( M25.561) Diagnosis 2 Other chronic pain ( G89.29) Diagnosis 3 Pain in left knee (M 25.562) Referral Organization [facility] Referring Provider First Name ANDI Referring Provider Last Name DEBRA [facility] Referred Provider Specialty [facility] PEDRO LUIS ESCAMILLAERSTEN 0 06/30/2025 10:47:00 AM >Referral to [facility] and faxed, p. [phone], f. [phone] Referral Priority Routine Medications Medication SIG (Take, Route, Frequency, Duration) Notes Start Date End Date Status Meclizine HCl 25 MG 1 tablet as needed Orally Once a day; Duration: 30 days As needed 05/25/2020 Active LORazepam 0.5 MG 1 tablet Orally Once a day; Duration: 30 days 07/27/2025 Active amLODIPine Besylate 5 MG TAKE 1 TABLET B Y MOUTH EVERY DAY FOR 90 DAYS Orally Once a day; Duration: 90 days Active Dexilant 60 MG 1 capsule Orally Onc e a day; Duration: 30 day(s) undefined 08/08/2018 Active Tums 500 MG 1 tablet Orally Once a day; Duration: 30 day(s) Active Naproxen 500 MG 1 tablet with food o r milk as needed Orally every 12 hrs; Duration: 10 days 06/08/2025 Active Pravastatin Sodium 40 MG 1 tablet Orally Once a day; Duration: 90 days Active Fluticasone Propionate 50 MCG/ACT 1 spray in each nostril Nasally Once a day; Duration: 30 days As needed Active Immunizations Vaccine Route Administration Date Status [...] Status Risk Notes Problem Iron deficiency anemia (67347782) Iron deficiency anemia, unspecified (D50.9) Active confirmed Problem Vitamin B>12< deficiency anaemia (28718046) Vitamin B12 deficiency anemia, unspecified (D51.9) Active confirmed Problem Vitamin D deficiency (29883847) Vitamin D deficiency, unspecified (E55.9) Active confirmed Problem Obesity (167640955) Obesity, unspecified (E66.9) Active confirmed Problem Hyperlipidemia (36393711) Hyperlipidemia, unspecified (E78.5) Active confirmed Problem Insomnia (383915963) Insomnia, unspecified (G47.00) Active confirmed Problem Chronic pain (88551366) Other chronic pain (G89.29) Active confirmed Problem Benign paroxysmal positional vertigo (930341425) Benign paroxysmal vertigo, bilateral (H81.13) Active confirmed Problem Essential hypertension (87188617) Essential (primary) hypertension (I10) Active confirmed Problem Atherosclerotic heart disease of [place] coronary artery without angina pectoris (838625832347998) Atherosclerotic heart disease of [place] coronary artery without angina pectoris (I25.10) Active confirmed Problem Right carotid artery stenosis (825196304458734) Occlusion and stenosis of right carotid artery (I65.21) Active confirmed Problem Atopic dermatitis (95626765) Atopic dermatitis, unspecified (L20.9) Active confirmed Problem 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 confirmed Problem Adult health examination (956188717) Encounter for general adult medical examination without abnormal findings (Z00.00) Active confirmed Problem Obese class II (002967152123836) Body mass index (BMI) 35.0-35.9, adult (Z68.35) Active confirmed Problem Prediabetes (588893024) Prediabetes (R73.03) Active confirmed Problem Body mass index 30.00 to 34.99 (351303207913372) Body mass index (BMI) of 34.0-34.9 in adult (Z68.34) Active confirmed Problem Backache (122738409) Back pain, unspecified back location, unspecified back pain laterality, unspecified chronicity (M54.9) Active confirmed Problem Anxiety (64408830) Anxiety (F41.9) Active confi rmed Problem Adult health examination (400935943) Adult general medical exam (Z00.00) Active confirmed Problem Atrial fibrillation (08912572) Atrial fibrillation, unspecified type (I48.91) Active confirmed Problem Arthritis (1706766) Arthritis (M19.90) Active c onfirmed Problem Insomnia (014249837) Insomnia, unspecified type (G47.00) Active confirmed Problem Vitamin D deficiency (05290373) Vitamin D deficiency (E55.9) Active confirmed Problem Arthralgia of the pelvic region and thigh (600853856) Left hip pain (M25.552) Active confirmed Problem Pain in limb (83517635) Leg pain, left (M79.605) Active confirmed Problem Sciatica (30898312) Sciatic leg pain (M54.30) Active confirmed Problem Obese class II (671242896611700) BMI 36.0-36.9,adult (Z68.36) Active confirmed Problem Vitamin B>12< deficiency anaemia (10387055) Anemia due to vitamin B12 deficiency, unspecified B12 deficiency type (D51.9) Active confirmed Problem Gastroesophageal reflux disease (055651753) GERD without esophagitis (K21.9) Active confirmed Problem Pain in limb (79076276) Pain in left hanks (M79.662) Active confirmed Problem Hyperlipidemia (27061672) Hyperlipidemia (E78.5) Active confirmed Problem Pain in limb (09813466) Leg pain, right (M79.604) Active confirmed Vital Signs Heart Rate 90 /min 06/08/2025 Oximetry 96 % 06/08/2025 Blood pressure diastolic 80 mm Hg 06/08/2025 Height 63 in 06/08/2025 Blood pressure systolic 134 mm Hg 06/08/2025 Weight 203.1 lbs 06/08/2025 BMI 35.97 kg/m2 06/08/2025 Encounters Encounter Location Date Provider Diagnosis [facility] [address] [place] [address] 09/09/2024 ANDI DEBRA Left leg swelling M7 9.89 ; Atrial fibrillation, unspecified type I48.91 ; Leg pain, right M79.604 ; Leg pain, left M79.605 ; Hyperlipidemia, unspecified E78.5 ; Anxiety F41.9 ; Obesity, unspecified E66.9 ; Arthritis M19.90 and 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 [place] [address] 10/05/2024 [facility] general medica l exam Z00.00 ; Hyperlipidemia, unspecified E78.5 and Essential (primary) hypertension I10 [facility] [address] [place], [place] 03/15/2025 ANDI DEBRA Atrial fibrillation, unspecified [...] of blood pressure without abnormal findings Z01.30 [facility] [address] [place], [place] 06/08/2025 ANDI DEBRA Left leg swelling M7 9.89 ; Lower thoracic back pain M54.6 ; Hyperlipidemia, unspecified E78.5 ; Anxiety F41.9 ; Obesity, unspecified E66.9 ; Arthritis M19.90 ; 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 ; Vitamin D deficiency E55.9 and Encounter for examination of blood pressure without abnormal findings Z01.[address] [facility] [address] [place] [address] 07/30/2024 RYAN HUGGINS [facility] [address] [place] [address] 07/31/2024 SONAM BRAGA [facility] [address] [place] [address] 09/08/2024 [place] AKINS [facility] [address] [place] [address] 09/11/2024 TALPHILLIP AKINS [facility] [address] [place] [address] 09/15/2024 ANDI DEBRA [facility] [address] [place] [address] 10/05/2024 [place] AKINS [facility] [address] [place], [place] 10/12/2024 RYAN HUGGINS [facility] [address] [place] [address] 11/10/2024 [place] AKINS [facility] [address] [place] [address] 12/03/2024 RICHIE AKINS [facility] [address] [place] [address] 12/08/2024 RICHIE AKINS [facility] [address] [place] [address] 02/09/2025 [place] AKINS [facility] [address] [place], [place] 04/16/2025 ANDI DEBRA [facility] [address] [place], [place] 05/28/2025 ANDI DEBRA [facility] [address] [place] [address] 05/31/2025 ANDI DEBRA [facility] [address] [place], [place] 06/03/2025 ALVAREZ LINO [facility] [address] [place] [address] 06/08/2025 ANDI DEBRA [facility] [address] [place] [address] 06/30/2025 ANDI DEBRA [facility] [address] [place] [address] 07/07/2025 ANDI DEBRA [facility] [address] [place] [address] 07/26/2025 [place] AKINS Left leg swelling M7 9.89 [facility] [address] [facility] [address] [place] [address] 07/26/2025 ANDI RICHARDSON [facility] [address] [facility] [address] [place] [address] 07/31/2024 RYAN HUGGINS Assessments Encounter Date Diagnosis (ICD Code) Assessment Notes Treatment Notes Treatment Clinical Notes Section Notes 07/26/2025 Left leg swelling (ICD-10 - M79.89) 06/08/2025 Left leg swelling (ICD-10 - M79.89) [...] function. Additionally placing physical therapy referral to [facility] as patient states that as of now she is living with her partner in [place]. #Pancreatic cyst: She states that she is [...] changes. #Right knee pain: Continue following with [facility] for injections PRN [...] Dictation was accomplished with the use of Rundown voice recognition software, which is prone to [...] function. Additionally placing physical therapy referral to [facility] as patient states that as of now she is living with her partner in [place]. #Pancreatic cyst: She states that she is [...] changes. #Right knee pain: Continue following with [facility] for injections PRN [...] Dictation was accomplished with the use of Rundown voice recognition software, which is prone to medical misidentifications and grammatical errors. This are unintentional and the practitioner does try to identify and correct these, but some could still be present. Please do not hesitate to contact practitioner for clarification. 03/15/2025 Atrial fibrillation, unspecified type (ICD-10 - [...] and ligamentum degenerative changes. Patient referred to [facility] at this time as she may benefit from a repeat MRI or cortisone injections. #Bilateral lower leg swelling: Resolved.. Had a recent benign US #Right knee pain: Continue following with [facility] for injections #Atrial fibrillation: [...] Dictation was accomplished with the use of Rundown voice recognition software, which is prone to [...] log exercise and discussed fitness Apps like Keegy which can help keep log off calories [...] hemoglobin A1c testing might be appropriate. 09/09/2024 Atrial fibrillation, unspecified type (ICD-10 - [...] and ligamentum degenerative changes. Patient referred to [facility] at this time as [...] for further evaluation.Patient is to sign a [facility] emergency department record release, states that [...] Dictation was accomplished with the use of Rundown voice recognition software, which is prone to [...] and ligamentum degenerative changes. Patient referred to [facility] at this time as [...] for further evaluation.Patient is to sign a [facility] emergency department record release, states that [...] Dictation was accomplished with the use of Rundown voice recognition software, which is prone to medical misidentifications and grammatical errors. This are unintentional and the practitioner does try to identify and correct these, but some could still be present. Please do not hesitate to contact practitioner for clarification. 09/09/2024 Leg pain, right (ICD-10 - M79.604) [...] and ligamentum degenerative changes. Patient referred to [facility] at this time as [...] for further evaluation.Patient is to sign a [facility] emergency department record release, states that [...] Dictation was accomplished with the use of Rundown voice recognition software, which is prone to [...] and ligamentum degenerative changes. Patient referred to [facility] at this time as she may benefit from a repeat MRI or cortisone injections. #Bilateral lower leg swelling: Resolved.. Had a recent benign US #Right knee pain: Continue following with [facility] for injections #Atrial fibrillation: [...] Dictation was accomplished with the use of Rundown voice recognition software, which is prone to [...] log exercise and discussed fitness Apps like Keegy which can help keep log off calories [...] hemoglobin A1c testing might be appropriate. 03/15/2025 Left leg swelling (ICD-10 - M79.89) [...] and ligamentum degenerative changes. Patient referred to [facility] at this time as she may benefit from a repeat MRI or cortisone injections. #Bilateral lower leg swelling: Resolved.. Had a recent benign US #Right knee pain: Continue following with [facility] for injections #Atrial fibrillation: [...] Dictation was accomplished with the use of Rundown voice recognition software, which is prone to [...] function. Additionally placing physical therapy referral to [facility] as patient states that as of now she is living with her partner in [place]. #Pancreatic cyst: She states that she is [...] changes. #Right knee pain: Continue following with [facility] for injections PRN [...] Dictation was accomplished with the use of Rundown voice recognition software, which is prone to [...] function. Additionally placing physical therapy referral to [facility] as patient states that as of now she is living with her partner in [place]. #Pancreatic cyst: She states that she is [...] changes. #Right knee pain: Continue following with [facility] for injections PRN #Atrial fibrillation: Last cardiology [...] Dictation was accomplished with the use of Rundown voice recognition software, which is prone to medical misidentifications and grammatical errors. This are unintentional and the practitioner does try to identify and correct these, but some could still be present. Please do not hesitate to contact practitioner for clarification. 03/15/2025 Leg pain, left (ICD-10 - M79.605) [...] and ligamentum degenerative changes. Patient referred to [facility] at this time as she may benefit from a repeat MRI or cortisone injections. #Bilateral lower leg swelling: Resolved.. Had a recent benign US #Right knee pain: Continue following with [facility] for injections #Atrial [...] Dictation was accomplished with the use of Rundown voice recognition software, which is prone to [...] log exercise and discussed fitness Apps like Keegy which can help keep log off calories [...] testing might be appropriate. 09/09/2024 Leg pain, left (ICD-10 - M79.605) [...] and ligamentum degenerative changes. Patient referred to [facility] at this time as [...] for further evaluation.Patient is to sign a [facility] emergency department record release, states that [...] Dictation was accomplished with the use of Rundown voice recognition software, which is prone to [...] and ligamentum degenerative changes. Patient referred to [facility] at this time as [...] for further evaluation.Patient is to sign a [facility] emergency department record release, states that [...] Dictation was accomplished with the use of Rundown voice recognition software, which is prone to [...] and ligamentum degenerative changes. Patient referred to [facility] at this time as she may benefit from a repeat MRI or cortisone injections. #Bilateral lower leg swelling: Resolved.. Had a recent benign US #Right knee pain: Continue following with [facility] for injections #Atrial [...] Dictation was accomplished with the use of Rundown voice recognition software, which is prone to [...] function. Additionally placing physical therapy referral to [facility] as patient states that as of now she is living with her partner in [place]. #Pancreatic cyst: She states that she is [...] changes. #Right knee pain: Continue following with [facility] for injections PRN [...] Dictation was accomplished with the use of Rundown voice recognition software, which is prone to [...] function. Additionally placing physical therapy referral to [facility] as patient states that as of now she is living with her partner in [place]. #Pancreatic cyst: She states that she is [...] changes. #Right knee pain: Continue following with [facility] for injections PRN [...] Dictation was accomplished with the use of Rundown voice recognition software, which is prone to [...] and ligamentum degenerative changes. Patient referred to [facility] at this time as she may benefit from a repeat MRI or cortisone injections. #Bilateral lower leg swelling: Resolved.. Had a recent benign US #Right knee pain: Continue following with [facility] for injections #Atrial fibrillation: Last cardiology note [...] Dictation was accomplished with the use of Rundown voice recognition software, which is prone to [...] and ligamentum degenerative changes. Patient referred to [facility] at this time as [...] for further evaluation.Patient is to sign a [facility] emergency department record release, states that [...] Dictation was accomplished with the use of Rundown voice recognition software, which is prone to [...] and ligamentum degenerative changes. Patient referred to [facility] at this time as [...] for further evaluation.Patient is to sign a [facility] emergency department record release, states that [...] Dictation was accomplished with the use of Rundown voice recognition software, which is prone to [...] and ligamentum degenerative changes. Patient referred to [facility] at this time as she may benefit from a repeat MRI or cortisone injections. #Bilateral lower leg swelling: Resolved.. Had a recent benign US #Right knee pain: Continue following with [facility] for injections #Atrial [...] Dictation was accomplished with the use of Rundown voice recognition software, which is prone to [...] function. Additionally placing physical therapy referral to [facility] as patient states that as of now she is living with her partner in [place]. #Pancreatic cyst: She states that she is [...] changes. #Right knee pain: Continue following with [facility] for injections PRN [...] Dictation was accomplished with the use of Rundown voice recognition software, which is prone to [...] function. Additionally placing physical therapy referral to [facility] as patient states that as of now she is living with her partner in [place]. #Pancreatic cyst: She states that she is [...] changes. #Right knee pain: Continue following with [facility] for injections PRN [...] Dictation was accomplished with the use of Rundown voice recognition software, which is prone to [...] and ligamentum degenerative changes. Patient referred to [facility] at this time as she may benefit from a repeat MRI or cortisone injections. #Bilateral lower leg swelling: Resolved.. Had a recent benign US #Right knee pain: Continue following with [facility] for injections #Atrial fibrillation: Last cardiology note [...] Dictation was accomplished with the use of Rundown voice recognition software, which is prone to [...] and ligamentum degenerative changes. Patient referred to [facility] [employer] [employer] at this time as she may benefit [...] for further evaluation.Patient is to sign a [facility] emergency department record release, states that [...] Dictation was accomplished with the use of Rundown voice recognition software, which is prone to [...] and ligamentum degenerative changes. Patient referred to [facility] at this time as [...] for further evaluation.Patient is to sign a [facility] emergency department record release, states that [...] Dictation was accomplished with the use of Rundown voice recognition software, which is prone to [...] and ligamentum degenerative changes. Patient referred to [facility] at this time as she may benefit from a repeat MRI or cortisone injections. #Bilateral lower leg swelling: Resolved.. Had a recent benign [place] #Right knee pain: Continue following with [facility] for injections #Atrial fibrillation: Last cardiology note [...] Dictation was accomplished with the use of Rundown voice recognition software, which is prone to [...] function. Additionally placing physical therapy referral to [facility] as patient states that as of now she is living with her partner in [place]. #Pancreatic cyst: She states that she is [...] changes. #Right knee pain: Continue following with [facility] for injections PRN [...] Dictation was accomplished with the use of Rundown voice recognition software, which is prone to [...] and ligamentum degenerative changes. Patient referred to [facility] at this time as she may benefit from a repeat MRI or cortisone injections. #Bilateral lower leg swelling: Resolved.. Had a recent benign [place] #Right knee pain: Continue following with [facility] for injections #Atrial fibrillation: Last cardiology note [...] Dictation was accomplished with the use of Rundown voice recognition software, which is prone to [...] and ligamentum degenerative changes. Patient referred to [facility] at this time as she may benefit from a repeat MRI or cortisone injections. #Bilateral lower leg swelling: Resolved.. Had a recent benign US #Right knee pain: Continue following with [facility] for injections #Atrial fibrillation: Last cardiology note [...] Dictation was accomplished with the use of Rundown voice recognition software, which is prone to [...] (COMPLETE BLOOD COUNT) 10/30/2018 COMPREHENSIVE METABOLIC PANEL 10/13/2018 COMPREHENSIVE METABOLIC PANEL 11/28/2020 COMPREHENSIVE METABOLIC PANEL 10/30/2018 HEMOGLOBIN A1C 10/30/2018 HEMOGLOBIN A1C 10/13/2018 INSULIN 11/28/2020 INSULIN, FREE 10/30/2018 LIPID PANEL 10/30/2018 LIPID PANEL 11/28/2020 TSH WITH REFLEX TO FT4 10/30/2018 US Head/Neck Soft Tissue 10/30/2018 XR Hip 2+ Vws LT 10/17/2022 XR Knee 3 Views LT 10/29/2019 XR Tibia/Fibula 2 Views LT 06/17/2024 LIPID PANEL, STANDARD 10/05/2024 LIPID PANEL, STANDARD 12/20/2021 LIPID PANEL, STANDARD 06/08/2025 LIPID PANEL, STANDARD 03/15/2025 LIPID PANEL, STANDARD 02/17/2024 LIPID PANEL, STANDARD 03/25/2023 COMPREHENSIVE METABOLIC PANEL 03/25/2023 COMPREHENSIVE METABOLIC PANEL 03/15/2025 COMPREHENSIVE METABOLIC PANEL 06/08/2025 COMPREHENSIVE METABOLIC PANEL 12/20/2021 COMPREHENSIVE METABOLIC PANEL 10/05/2024 COMPREHENSIVE METABOLIC PANEL 02/17/2024 CBC (INCLUDES DIFF/PLT) 02/17/2024 CBC (INCLUDES DIFF/PLT) 10/05/2024 CBC (INCLUDES DIFF/PLT) 12/20/2021 CBC (INCLUDES DIFF/PLT) 06/08/2025 CBC (INCLUDES DIFF/PLT) 03/15/2025 CBC (INCLUDES DIFF/PLT) 03/25/2023 URINALYSIS, COMPLETE 03/15/2025 URINALYSIS, COMPLETE 03/25/2023 URINALYSIS, COMPLETE 02/17/2024 URINALYSIS, COMPLETE 10/05/2024 HEMOGLOBIN A1c 03/25/2023 INSULIN 03/25/2023 INSULIN 12/20/2021 VITAMIN B12 06/08/2025 VITAMIN B12 03/15/2025 VITAMIN D,25-OH,TOTAL,IA 06/08/2025 VITAMIN D,25-OH,TOTAL,IA 03/25/2023 VITAMIN D,25-OH,TOTAL,IA 12/20/2021 VITAMIN D,25-OH,TOTAL,IA 03/15/2025 US Abdomen 04/22/2020 US Carotid Duplex Bilat Complt US Duplex Venous Study Bilat 09/09/2024 TSH+T4F+T3Free 03/15/2025 TSH+T3+Free T4+T3 Free 06/08/2025 Next Appt Details Provider Name:ANDI RICHARDSON, 01:00:00 PM, [address], [place], [address], Provider Name:ANDI RICHARDSON, 02:00:00 PM, [address], [facility] [place], [address], Insurance Providers Payer Name Payer Address Payer Phone Subscriber Number Group Number Insured Name Patient Relationship to Insured Coverage Start Date Coverage End Date Medicare Part B J14 [address] [place] [phone] [id number] NANCY REYNOLDS Self - patient is the insured [employer] [address] [id number] NANCY REYNOLDS Self - patient is the insured Medical (General) History Medical History History ICD Code anemia anxiety Atrial fibrillation hypertension insomnia Anxiety F41.9 Hyperlipidemia E78.5 Gastro-esophageal reflux disease without esophagitis K21.9 Arthritis M19.90 Surgical History Surgery Date(Month/Year) cholecystectomy lasik hysterectomy colonoscopy 3 years cardiac ablation Hospitalization History Reason Date(Month/Year) SAME SURGICAL
--- OUTSIDE RECORDS SUMMARY | 2025-07-28 07:24 | XMS_ITS | Data Portability ---
Author Organization [facility] Goldberg s, [address] Address [address] [place] [address] Assessment No assessment recorded. Plan of Treatment Reminders Order Date Submit Date Provider Last Modified By Organization Details Last Modified Time Details Appointments None recorded. Lab None recorded. Referral None recorded. Procedures None recorded. Surgeries None recorded. Imaging US, duplex, venous, lower extremity, unilateral - pain left lower leg with swelling . no pitting edema , rule out any pathology including DVT. Also patient is on warfarin for A-fib. 2023 024 [email or web address] [facility] (Hsg Scheduling), [address] [place], [address] 4 15:09:02 XR, tibia + fibula, 2 view 2023 024 [facility], [address] [place] [address], [address], 10:57:06 Medication Orders nystatin 100,000 unit/gram topical powder 2023 024 [facility] #[id number], [address] [place], [address], 09:53:52 Patient TargetsNo targets recorded. Patient Instructions Encounter Date Encounter Id Patient Instructions Last Modified By Organization Details Last Modified Time 11/04/2023 [id number] candidiasis: car e instructions [email or web address] Not available 11/04/2023 09:54:44 Use the nystatin powder as directed. Keep affected area clean and dry. See printed instructions. Follow-up with your doctor in one week. Seek Emergency Medical evaluation for any worsening symptoms, particularly for increased pain, redness, swelling or for fever, chills, purulent drainage. [email or web address] Not available 11/04/2023 09:55:33 04/20/2024 [id number] leg pain: care instructions [email or web address] Not available 04/20/2024 10:05:20 Reason for Referral None Reported. Results Created Date Observation Date Name Description Value Unit Range Abnormal Flag Note LastModifiedBy Organization Detail LastModifiedTime 04/20/20 24 04/20/2024 XR, tibia + fibul a, 2 view No observ ation record ed. [email or web address] [address] [place], [place], [address], 04/20/2024 11:21:32 Result Notes None recorded. 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 Procedures Surgical History Date Name Laterality Status Provider Name and Address Organization Details Recorded Time hysterectomy completed ALVAREZ SHELDONO PA - [facility] 11/04/2023 09:33:44 Removal of gallbladder completed ALVAREZ MINEO PA - [facility] 11/04/2023 09:33:49 procedure on foot completed Thalia Tina PA - [facility] 04/20/2024 09:54:27 Imaging Results None recorded. Procedure Notes None recorded. Medical Equipment None Reported. Allergies Allergen ID Allergen Name Allergen Category Reaction Reaction Severity Criticality Documentation Date Start Date Code Code System Note Provider Name and Address Organization Details Recorded Time 366606 latex environme nt,medica tion Not available Not available Not available 11/04/2023 17663 91 RxNorm ALVAREZ RUIZ null, PA - [facility] 4 09:31:08 687808 Product containin g penicilli n (product) medicatio n Not available Not available Not available 11/04/2023 59659 8001 SNOMED ALVAREZ castellanos, PA - [facility] 4 09:30:48 581164 benzocain e medicatio n Not available Not available Not available 11/04/2023 1399 RxNorm ALVAREZ MINEO null, PA - [facility] 4 09:31:25 Medications Name Sig Start Date Stop Date Status Note LastModified by Organization Details LastModified Time nystatin 100,000 unit/gram topical powder APPLY TO AFFECTED AREA TWICE A DAY active Not Available Not Available No t Available warfarin active Not Available Not Avai lable Not Available amlodipine active Not Available Not Av ailable Not Available pravastatin active Not Available Not A vailable Not Available sotalol 04/20 completed Not Available Not Available Not Available dexlansopra zole 60 mg capsule,bip hase delayed release Take 1 capsule every day by oral route. active Not Available Not Available No t Available Vitals Date Recorded Body height Body mass index (BMI) Body weight Oxygen saturation Oxygen saturation in Arterial blood by Pulse oximetry Heart rate Respiratory rate Body temperature Pain severity - 0-10 verbal numeric rating [Score] - Reported Systolic And Diastolic Provider Name and Address Organization Details Last Updated DateTime 4 162.56 cm 34.3 kg/m2 22401.4 7 g 97 % 97 % 78 /min 18 /min 98.1 [degF] 2 114/69 mm[Hg] ALVAREZ RUIZ PA - [facility] 4 09:35:35 Date Recorded Body height Body temperature Body mass index (BMI) Body weight Oxygen saturation Oxygen saturation in Arterial blood by Pulse oximetry Heart rate Pain severity - 0-10 verbal numeric rating [Score] - Reported Respiratory rate Systolic And Diastolic Provider Name and Address Organization Details Last Updated DateTime 162.56 cm 98.1 [degF] 32.4 kg/m2 65968.9 6 g 94 % 94 % 96 /min 9 18 /min 152/73 mm[Hg] Thalia Tina PA - [facility] 09:49:37 Social History Question Answer Notes LastModified by [employer] Details LastModified Time Tobacco Smoking Status Never Smoker ALVAREZ SARA castellanos PA - [facility] 11/04/2023 09:33:31 Have You Had A Flu Shot This Season? Yes Information not available 04/20/2024 If No, Would You Like A Flu Shot Today? No Information not available 04/20/2024 Have You Had Direct Contact, Or Contact During Intimacy, With Monkeypox Rash, Scabs, Or Body Fluids From A Person With Monkeypox? No Information not available 04/20/2024 What Was The Date Of Your Most Recent Tobacco Screening? 04/20/2024 Information not available 04/20/2024 What Is Your Relationship Status? Information not available 04/20/2024 Have You Recently Traveled Abroad? No Information not available 04/20/2024 Are You Currently In School? No Information not available 04/20/2024 Sex: Unknown Functional Status Question Answer Note LastModified by [employer] Details LastModified Time Do you use any illicit or recreational drugs? No Information not available 11/04/2023 What is your level of alcohol consumption? None Information not available 11/04/2023 Are you currently employed? No Retired Information not available 04/20/2024 Mental Status None recorded. Family History Relationship Description Onset Age of this Age Resolved Age Notes LastModified by Organization Details LastModified Time Father No current problems or disability Not available 04/06 09:52:57 Mother No current problems or disability Not available 04/06 09:52:57 Medical History No medical history recorded. Gynecological HistoryNo gynecological history recorded. Obstetrics History GPAL:G 0 P 0 0 0 0 Past Encounters Encounter ID Performer Location Encounter Start Date Encounter Closed Date Diagnosis/Indication Diagnosis SNOMED-CT Code Diagnosis ICD10 Code Diagnosis IMO Codes Diagnosis Note [id number] [place] [address] [place] [facility] [place] [address] 11/04/2023 09:08:59 11/04/2023 09:56:16 Candidal intertrigo 282501720 B37.2 [id number] [place] [address] [place] [facility] [place] [address] 04/20/2024 09:44:30 04/20/2024 10:28:22 Pain of left lower leg 6970127754 47210 M79.662 Pain due t o varicose veins of lower extremity 090593457 I83.819 Go to the Emergency Department immediatel y if your symptoms worsen or if you develop new symptoms that concern you. Follow up with a PCP within the next 5-10 days Failure to follow up as recommende d may result in adverse health consequenc es. Take medication as directed with food. Follow-up at [facility] in 2-3 days if no improvemen t. Apply warm compresses to the area. If swelling, redness and pain increases go to the nearest ER for further evaluation and possibly rule out DVT. Health Concerns Section Related Observation LastModified by Organization Detai ls LastModified Time None Recorded Concern Status LastModified by Organization Details LastModified Time None Recorded Advance Directives Directive None Recorded Payers Insurance Date Sequence Insurance Name Policy Number Policy Fox Covered Member ID Fox Member ID Guarantor Name 04/20/2024 2 [facility] Ashtyn Smith [id number] Ashtyn Smith 04/20/2024 1 MEDICARE B-SD: [facility] [employer] Ashtyn Smith [id number] Ashtynmiko Smith Notes Date Note Type Note Provider Name and Address Organization Details Recorded Time 11/04/2023 text/html Skin Redness UCR eported by PatientSkin Redness UCFor quality, patient reportsburninganderythe matous. For severity, patient reportsmoderate. For duration, patient reports1 days. For aggravating factors, patient reportsnothing makes it worse. For symptoms, patient reportsno fever,no nausea,no vomiting, andno swelling. For location, (under right breast.). For onset, (just noted this morning.). For alleviating factors, (has not tried anything.).78 year old female presenting for evaluation of a red, irritated region under her right breast noted this morning in the shower. No fever, chills, drainage, bleeding or other systemic symptoms. Christina Escobedo MD [address] [place], [address], [place] 11/04/2023 10:01:10 04/20/2024 text/html Lower Leg UCRepo rted by PatientHPIFor source of patient information, patient reportsinformation obtained from patientandpatient arrived at urgent care ambulatory. For associated symptoms, patient reportsno weakness,no numbness,no tingling,no swelling,no redness,no warmth,no ecchymosis,no catching/locking,no popping/clicking,no buckling,no grinding,no instability,no radiation down leg,no drainage,no fever,no chills, andno weight loss. For previous injury, patient reportsno prior injury to affected body part. Santy Ace NP [address] [place], [address], [employer] [facility] 04/20/2024 10:27:04 OBGyn Episode No OBEpisode recorded.
--- OUTSIDE RECORDS SUMMARY | 2025-07-28 07:24 | XMS_ITS | Encounter Summary ---
Author Organization [facility] Address [address] [place] [address] Care Team Providers Care Csr Technician Name Role Phone Edwige Cline MD Primary Care Provider [phone] Encounter Details Date Type Department Care Team (Late st Contact Info) Description 07/15/2025 Lab Requisition [facility] [address] [facility] [place] [address] Nadia Armendariz MD [address] [facility] [address] [place] [id number] Acute vaginitis Social History Tobacco Use Types Packs/Day Years Used Date Smoking Tobacco: Never Assessed Comments Unknown Sex and Gender Information Value Date Recorded Sex Assigned at Not on file Legal Sex Female 5:10 PM EST Gender Identity Not on file Sexual Orientation Not on file documented as of this encounter Plan of Treatment Not on file documented as of this encounter Procedures Procedure Name Priority Date/Time Associated Diagnosis Comments VAGINITIS PATHOGENS BY PCR Routine 07/15/2025 3:00 PM EDT Acute vaginitis documented in this encounter Results * Vaginitis pathogens molecular study (07/15/2025 3:00 PM EDT) Trichomonas vaginalis Negative Negative 07/16/2025 1:23 PM EDT [facility] Gardnerella vaginalis Negative Negative 07/16/2025 1:23 PM EDT [facility] Becca Species Negative Negative 5 1:23 PM EDT [facility] Swab Vaginal structure / Unknown Non-blood Collection / Unknown 07/15/2025 3:00 PM EDT 07/15/2025 5:51 PM EDT us Nadai Armendariz MD LAB MICROBIOLOGY - GENER AL ORDERABLES Final Result [facility] [address] [place] [address], documented in this encounter Visit Diagnoses Diagnosis Acute vaginitis Unspecified vaginitis and vulvovaginitis documented in this encounter Care Teams Csr Technician Relationship Specialty Start Date End Date Edwige Cline MD [address] [place] [place] [address] PCP - General Internal Medicine 05/02/15 documented as of this encounter
--- OUTSIDE RECORDS SUMMARY | 2025-07-28 07:25 | XMS_ITS | Clinical Summary ---
Author Organization [facility] Address [address] [place] [address] Phone Care Team Providers Care Supervisor Pleating Name Role Phone Edwige Cline MD Primary Care Provider [phone] Encounters Date Type Department Care Team Description 07/15/2025 Lab Requisition [facility] [address] [facility] [place] [address] Nadia Armendariz MD Acute vaginitis from Last 3 Months Social History Tobacco Use Types Packs/Day Years Used Date Smoking Tobacco: Never Assessed Comments Unknown Sex and Gender Information Value Date Recorded Sex Assigned at Not on file Legal Sex Female 5:10 PM EST Gender Identity Not on file Sexual Orientation Not on file Plan of Treatment Health Maintenance Due Date Last Done Comments DTaP,Tdap,and Td Vaccines (1 - Tdap) 1966 Pneumococcal Vaccine: 50+ Ye ars (1 of 1 - PCV) 1997 Zoster Vaccines (1 of 2) 1997 RSV Immunization Adult Patie nts (1 - 1-dose 75+ series) 2022 Cholesterol Screening (Lipid Panel) 09/05/2022 Falls Risk Assessment 09/05/2022 Hepatitis C Screening 09/05/2022 Medicare Annual Wellness Visit 09/05/2022 Osteoporosis Screening (Bone Density Screening) 09/05/2022 Social Influencers of Health Screening 09/05/2022 Hypertension/CHF/CAD Annual BMP Blood Test 09/09/2024 Depression Screening 10/07/2024 COVID-19 Vaccine ( - 2023-2 5 season) 2025 Influenza Vaccine (#1) 2025 HIB Vaccines Aged Out No longer eligi ble based on patient's age to complete this topic HPV Vaccines Aged Out No longer eligi ble based on patient's age to complete this topic Hepatitis A Vaccines Aged Out No long er eligible based on patient's age to complete this topic Hepatitis B Vaccines Aged Out No long er eligible based on patient's age to complete this topic IPV Vaccines Aged Out No longer eligi ble based on patient's age to complete this topic MMR Vaccines Aged Out No longer eligi ble based on patient's age to complete this topic Meningococcal ACWY Vaccine Aged Out N o longer eligible based on patient's age to complete this topic Meningococcal B Vaccine Aged Out No l onger eligible based on patient's age to complete this topic RSV Immunization Patients Un ivett 20 months Aged Out No longer eligible b ased on patient's age to complete this topic Varicella Vaccines Aged Out No longer eligible based on patient's age to complete this topic Procedures Procedure Name Priority Date/Time Associated Diagnosis Comments VAGINITIS PATHOGENS BY PCR Routine 07/15/2025 3:00 PM EDT Acute vaginitis from Last 3 Months Results * Vaginitis pathogens molecular study (07/15/2025 3:00 PM EDT) Trichomonas vaginalis Negative Negative 07/16/2025 1:23 PM EDT [facility] Gardnerella vaginalis Negative Negative 07/16/2025 1:23 PM EDT [facility] Becca Species Negative Negative 1:23 PM EDT [facility] Swab Vaginal structure / Unknown Non-blood Collection / Unknown 07/15/2025 3:00 PM EDT 07/15/2025 5:51 PM EDT us Nadia Armendariz MD LAB MICROBIOLOGY - GENER AL ORDERABLES Final Result [facility] [address] [place] [address], [place] [phone] from Last 3 Months Insurance MEDICARE [facility] Care Teams Supervisor Pleating Relationship Specialty Start Date End Date Edwige Clien MD [address] [place] [address] PCP - General Internal Medicine 05/02/15
[2025-07-28 07:37] LABS: MANUAL DIFF FLAG NO
[2025-07-28 08:10] LABS: Hematocrit 36.0 % (37.0-47.0); Hemoglobin 11.4 g/dl (12.0-16.0); Imm Gran Abs Auto 0.02 X10*3/uL (0.00-0.03); Imm Gran Pct Auto 0.4 % (0.0-0.4); Lymphocytes Absolute Auto 1.7 X10*3/uL (1.2-4.9); Mean Corpuscular HGB Conc 31.7 g/dl (31.0-35.0); Mean Corpuscular Hemoglobin 28.0 pg (27.0-33.0); Mean Corpuscular Volume 88.5 fL (80.0-98.0); NRBC Abs Auto 0.000 X10*3/uL (0.0-0.012); NRBC Pct Auto 0.0 /100WBC (0.0-0.2); Platelet Count 250 X10*3/uL (160-400); Red Blood Count 4.07 X10*6/uL (4.20-5.50); White Blood Count 5.4 X10*3/uL (4.8-10.8)
[2025-07-28 08:29] LABS: Appearance Urine Cloudy; Glucose Urine UA Negative (Negative); PH 5.5 (5.0-9.0); Specific Gravity - Urine 1.025 (1.005-1.025); UMIC TRIGGER UA YES
[2025-07-28 08:55] LABS: Alanine Aminotransferase 14 U/L (0-31); Albumin Level 4.2 g/dL (3.5-5.0); Alkaline Phosphatase 132 U/L (39-117); Anion Gap 10 (12-20); Aspartate Amino Transferase 21 U/L (5-31); Blood Urea Nitrogen 20 mg/dL (9-16); Calcium 9.4 mg/dL (8.4-10.2); Carbon Dioxide 27 mmol/L (22-29); Chloride 109 mmol/L (96-108); Cholesterol 171 mg/dL (<200); Estimated Glomerular Filt Rate > 60; HDL Cholesterol 56 mg/dL (>40); Potassium 4.4 mmol/L (3.3-5.1); Sodium 142 mmol/L (135-145); Total Protein 6.9 g/dL (6.5-8.0); Triglycerides 73 mg/dL (<150)
[2025-07-28 09:10] LABS: Free T4 (Free Thyroxine) 1.20 ng/dL (0.71-1.85); Thyroid Stimulating Hormone 1.44 uIU/mL (0.32-4.0)
[2025-07-28 09:11] LABS: Vitamin B12 492 pg/mL (200-900)
== END 2025-07-28 07:23 | disposition home or self-care (01) ==
LOC: HO.LAB 07:22
PROVIDERS: PCP Internal Medicine
DX: Z00.00 Encounter for general adult medical examination without abnormal findings (principal); Z13.6 Encounter for screening for cardiovascular disorders; Z13.29 Encounter for screening for other suspected endocrine disorder; Z13.220 Encounter for screening for lipoid disorders; D51.9 Vitamin B12 deficiency anemia, unspecified; E55.9 Vitamin D deficiency, unspecified
CPT/HCPCS: 36415; 80053; 80061; 81001; 82306; 82607; 84439; 84443; 84481; 85025

== ENCOUNTER 2025-08-06 09:42 | Outpatient (RCR) | payer MEDICARE, OTHER, SELFPAY ==
[2025-06-30 10:10] VITALS: BP 130/60; PULSE 83
== END 2025-08-09 15:04 | disposition home or self-care (01) ==
LOC: HO.PT 09:42
PROVIDERS: PCP Internal Medicine
DX: G89.29 Other chronic pain (principal); M25.562 Pain in left knee; M25.561 Pain in right knee
CPT/HCPCS: 97110; 97161; 97530

== ENCOUNTER 2025-08-28 07:49 | Emergency (ER) | payer MEDICARE, OTHER, SELFPAY ==
--- OUTSIDE RECORDS SUMMARY | 2025-08-25 10:36 | XMS_ITS ---
Author Organization [facility] [address] Address [address] [facility] [place] [address] Care Team Providers Care Medical Collections Representative Name Role Phone ANDI RICHARDSON Primary Care Provider REASON FOR VISIT Ct order Encounters Encounter Location Date Provider Diagnosis [facility] [address] [facility] [place] [address] 08/25/2025 ANDI RICHARDSON Aching leg syndrome of right lower extremity M79.604 and Aching leg syndrome of left lower extremity M79.605 Assessments Encounter Date Diagnosis (ICD Code) Assessment Notes Treatment Notes Treatment Clinical Notes Section Notes 08/25/2025 Aching leg syndrome of right lower extremity (ICD-10 - M79.604) 08/25/2025 Aching leg syndrome of left lower extremity (ICD-10 - M79.605) Plan Of Treatment Pending Test Test Name Order Date CT Ang L-Ext w and/or w/o Contrast bilat 08/25/2025 Next Appt Details Provider Name:ANDI RICHARDSON, 01:00:00 PM, [address], [place], [address], Provider Name:ANDI RICHARDSON, 02:00:00 PM, [address], [facility] [place], [address], Progress Notes * MAXIMO REYNOLDSOB:1945 (80 yo F)Acc No.[id number]:08/25/2025 Patient: NANCY CORDOVA :1945 A ge:80 Y S ex:Female Address:[facility] [address], [place] [address] Subjective: * Chief Complaints: * C t order Assessment: * Assessment: 1. A tyler leg syndrome of right lower extremity - M79.604 2 . A ytler leg syndrome of left lower extremity - M79.605 Plan: * Treatment: 2.?Aching leg syndrome of left lower extremity?Imaging: CT Ang L-Ext w and/or w/o Contrast bilat* Venogram Bilateral lower leg /calf * true * Date: Generated for Pierce little/Inés/Diana on: 10/28/2024 08:19 AM EST
--- OUTSIDE RECORDS SUMMARY | 2025-08-26 10:57 | XMS_ITS | Encounter Summary ---
Author Organization [facility] Address [address] [place] [address] Care Team Providers Care Contact Acid Plant Operator Name Role Phone Edwige Cline MD Primary Care Provider Reason for Visit * Imaging (Routine) - Authorized Specialty Diagnoses / Procedures Referred By Contac t Referred To Contact Radiology Diagnoses Pain in leg, unspecified Procedures CT Lower Extremity w Contrast bilat CT Angio Lower Extremity w and/or wo Contrast bilat CT Lower Extremity w Contrast bilat CT Lower Extremity wo Contrast Left Moshe Guaman MD [address] [place] [address] Phone: tel: fax: [facility] Referral ID Status Reason Start Date Expiration Date V isits Requested Visits Authorized [id number] Authorized 08/19/2025 08/19/2026 1 1 Encounter Details Date Type Department Care Team (Latest Contact Info) Description 08/26/2025 10:57 AM EST - 08/26/2025 11:59 PM EST Hospital Encounter [facility] CT Scan [address] [place] [id number] Pain in leg, unspecified Discharge Disposition: Home or Self Care Social History Tobacco Use Types Packs/Day Years Used Date Smoking Tobacco: Never Assessed Comments Unknown Sex and Gender Information Value Date Recorded Sex Assigned at Female 08/19/2025 1:59 PM EST Legal Sex Female 5:10 PM EST Gender Identity Not on file Sexual Orientation Not on file documented as of this encounter Discharge Disposition Disposition Code Departure Means Destination Home or Self Care documented in this encounter Plan of Treatment Pending Results Name Type Priority Associated Diagnoses Date /Time CT Lower Extremity w Contrast bilat Imaging Routine Pain in leg, unspecified 08/26/2025 11:36 AM EST Scheduled Orders Name Type Priority Associated Diagnoses Orde r Schedule CT Lower Extremity w Contrast bilat Imaging Routine Pain in leg, unspecified Once for 1 Occurrences starting 08/26/2025 until 08/26/2025 documented as of this encounter Visit Diagnoses Diagnosis Pain in leg, unspecified documented in this encounter Administered Medications Inactive Administered Medications - up to 3 most recent administrations Medication Order MAR Action Action Date Dose Rate Site iopamidoL (ISOVUE-370) 370 mg iodine /mL (76 %) injection 90 mL 90 mL, intravenous, Once in imaging, Starting on Ivy 08/26/25 at 1125, For 1 dose Given 08/26/2025 11:26 AM EST 90 mL sodium chloride 0.9 % flush 10 mL 10 mL, intravenous, Once, On Ivy 08/26/25 at 1145, For 1 dose Given 08/26/2025 11:26 AM EST 10 mL documented in this encounter Care Teams Contact Acid Plant Operator Relationship Specialty Start Date End Date Edwige Cline MD [address] [place] [address] PCP - General Internal Medicine 05/02/15 documented as of this encounter
[2025-08-28 08:07] VITALS: BP 152/56; PULSE 99; RESP 18; TEMP 36.9; O2SAT 95; BMI 31.4
--- NOTE | 2025-08-28 08:11 | ED.GENADULT ---
HPI - General Adult General Chief complaint: Back Pain/Injury Stated complaint: pain in both legs Time Seen by Provider: 08/28/25 07:58 Source: patient, RN notes reviewed and old records reviewed Mode of arrival: ambulatory Limitations: no limitations History of Present Illness ED Provider: Zacarias FRANCISCO narrative: Patient is a 80-year-old female with history of GERD, HLD, HTN, afib not anticoagulated, arthritis presenting to the ED with complaint of ongoing lower back pain with paresthesias down bilateral legs. Reports symptoms have been ongoing for over a year. She has been treated with several courses of prednisone, is currently on gabapentin, has tried physical therapy, and has seen a bone and joint specialist. Had outpatient CT of hips/pelvis, legs this past week through [facility]. Denies any saddle anesthesia, bowel or bladder incontinence, fevers. Denies history of IV drug use. Reports frustration with her symptoms as she has always been very active. Denies any recent falls or other trauma. MD complaint: leg pain and paresthesias Onset (ago): year(s) Related Data Previous Rx's ?Medication ?Instructions ?Recorded amlodipine 5 mg tablet 5 mg PO DAILY #30 tabs 02/10/25 dexlansoprazole 60 mg 60 mg PO DAILY #30 caps 02/10/25 capsule,biphase delayed release (Dexilant) fluticasone propionate 50 1 spray intranasal Q12H #16 grams 02/10/25 mcg/actuation nasal spray,suspension lorazepam 0.5 mg tablet 0.5 mg PO BEDTIME PRN anxiety #30 02/10/25 tabs meclizine 25 mg tablet (Motion 25 mg PO DAILY PRN motion sickness 02/10/25 Sickness (meclizine)) #30 tabs pravastatin 40 mg tablet 40 mg PO DAILY #30 tabs 02/10/25 Allergies Allergy/AdvReac Type Severity Reaction Status Date / Time Penicillins Allergy Rash Verified 08/28/25 08:08 benzocaine AdvReac Agitated Verified 08/28/25 08:08 Review of Systems Review of Systems: As per HPI Yes all other systems are reviewed and are negative Constitutional: Constitutional: Reports as per HPI [facility] Past Medical History Medical History Arthritis Gastro-esophageal reflux disease without esophagitis Hyperlipidemia Insomnia Hypertension Atrial fibrillation Anxiety Anemia Surgical History H/O colonoscopy History of hysterectomy Hx of LASIK Social History Social History Advance Directives: No Advance Directives Information Provided: No Physical Exam ED Vital Signs: Vital Signs - 24 hr 08/28/25 08:07 Temperature 98.5 F Pulse Rate 99 Respiratory Rate 18 Blood Pressure 152/56 H Pulse Oximetry 95 Oxygen Delivery Method Room Air BMI result Body Mass Index 31.4 Vital signs have been reviewed and appear to be correct. Blood pressure normal. Heart rate normal. Respiratory rate normal. Temperature normal. Oxygen saturation normal. Const General: cooperative, healthy appearing and no acute distress Orientation/consciousness: oriented to person, oriented to place, oriented to time and patient oriented x3 Limitations: no limitations HENMT Head: Yes normocephalic and Yes atraumatic Ears: external ears normal General nose exam: Normal external nose present Face and sinus: Yes face symmetric Mouth: oropharynx normal and moist mucous membranes Throat: Yes uvula midline Eyes Pupils: Equal, round and reactive pupils present Neck Neck: Yes normal visual inspection, Yes no meningeal signs and Yes supple Resp Effort & Inspection: normal respiratory effort and able to speak in complete sentences Auscultation: clear to auscultation bilaterally Cardio Rate: regular rate Rhythm: regular rhythm Heart sounds: S1 normal heart sound present and S2 normal heart sound present GI Palpation (GI): Soft to palpation and nontender Auscultation: normoactive bowel sounds General: Yes no CVA tenderness Back/Spine/Pelvis Back: no CVA tenderness Thoracic/Lumbar Spine: thoracic and lumbar spine normal to inspection, thoraco-lumbar ROM normal, straight leg raise negative bilaterally, No paraspinal muscle tenderness, No thoracic spinal tenderness and No lumbar spinal tenderness Pelvis: no pain with anterior-posterior compression and no pain with lateral compression Skin General skin exam: elasticity normal and turgor normal Neuro General: oriented to person, oriented to place, oriented to time, patient oriented x3, gait normal, tone normal, moves all extremities, Normal light touch and pain sensation, no meningeal signs, no focal motor deficits, CN's II-XI intact bilaterally and deep tendon reflexes 2+ bilaterally Cranial nerves: Yes Equal, round and reactive pupils present Cognition (Neuro): normal cognition Motor exam (neuro): 5/5 motor strength present throughout, Normal motor muscle tone present throughout and Motor abnormalities not present Extrem General: Yes full ROM, Yes no pedal edema and Yes no calf tenderness Right lower extremity: foot Details: vascular exam Details: dorsalis pedis pulse present, posterior tibial pulse present and normal capillary refill Left lower extremity: foot Details: vascular exam Details: dorsalis pedis pulse present, posterior tibial pulse present and normal capillary refill Psych Mental Status: mental status grossly normal Affect: normal affect Thought process: Normal thought process present Medical Decision Making Medical Decision Making [facility] Narrative: Patient is a 80-year-old female with history of GERD, HLD, HTN, afib not anticoagulated, arthritis presenting to the ED with complaint of ongoing lower back pain with paresthesias down bilateral legs. On exam patient is awake, A+Ox3, VS WNL, afebrile, normal neurological exam without focal deficits, physical exam findings as above. Given reported symptoms and physical exam findings, initial differential includes but is not limited to lumbar radiculopathy, osteoarthritis, electrolyte abnormality. Discussed with patient that due to chronic nature of symptoms, she will likely need to follow up with PCP for an MRI/to get results of recent CT scan, but will check basic labs and UA in the ED today. No red flag findings concerning for malignancy/mass, SEA, cauda equina/cord compression. Labs unremarkable. UA notable for trace leukocytes, positive granular casts. No evidence of LACEY on labs. Results discussed with patient and all questions answered. Will refer to physiatry given ongoing nature of symptoms. Also advised patient to increase her gabapentin, as she was instructed by PCP that she could take this BID but has been taking it PRN. Return precautions discussed. Patient verbalized understanding of and agreement with plan. Differential Diagnosis Differential Diagnoses: The differential diagnosis associated with the presentation includes As per the [facility] Admission/Observation Consideration of admission/observation: Escalation of care including admission/observation considered Patient would have been admitted to the hospital and transferred to appropriate facility had their clinical presentation warranted hospital admission. Lab Data [facility] Lab Attestation statement: I reviewed the patient's lab results. as per the [facility] 08/28/25 08:33 08/28/25 08:33 Labs: Lab Results 08/28/25 08/28/25 Range/Units 08:23 08:33 WBC 5.0 (4.8-10.8) X10*3/uL RBC 4.22 (4.20-5.50) X10*6/uL Hgb 11.8 L (12.0-16.0) g/dl Hct 37.4 (37.0-47.0) % MCV 88.6 (80.0-98.0) fL MCH 28.0 (27.0-33.0) pg MCHC 31.6 (31.0-35.0) g/dl RDW 14.8 (11.0-16.0) % Plt Count 241 (160-400) X10*3/uL MPV 10.3 (9.4-12.3) fL Immature Gran % (Auto) 0.4 (0.0-0.4) % Neut % (Auto) 65.5 (45-73) % Lymph % (Auto) 21.3 (20-40) % Gillespie % (Auto) 8.6 (2-11) % Eos % (Auto) 3.4 (0-4) % Baso % (Auto) 0.8 (0-2) % Lymph # (Auto) 1.1 L (1.2-4.9) X10*3/uL Gillespie # (Auto) 0.4 (0.1-1.2) X10*3/uL Eos # (Auto) 0.2 (0.0-0.4) X10*3/uL Baso # (Auto) 0.0 (0.0-0.2) X10*3/uL Abs Immat Gran (auto) 0.02 (0.00-0.03) X10*3/uL Absolute Neuts (auto) 3.3 (2.0-8.3) x10*3/uL Absolute Nucleated RBC 0.000 (0.0-0.012) X10*3/uL Nucleated RBC % (auto) 0.0 (0.0-0.2) /100WBC Sodium 142 (135-145) mmol/L Potassium 4.1 (3.3-5.1) mmol/L Chloride 108 (96-108) mmol/L Carbon Dioxide 26 (22-29) mmol/L Anion Gap 12 (12-20) BUN 15 (9-16) mg/dL Creatinine 0.85 (0.5-1.4) mg/dL Estim Creat Clear Calc 56.8 Estimated GFR > 60 Random Glucose 131 H (60-115) mg/dL Calcium 9.4 (8.4-10.2) mg/dL Magnesium 2.1 (1.6-2.6) mg/dL Total Bilirubin 0.5 (0.0-1.0) mg/dL AST 28 (5-31) U/L ALT 24 (0-31) U/L Alkaline Phosphatase 112 (39-117) U/L Total Protein 6.9 (6.5-8.0) g/dL Albumin 4.1 (3.5-5.0) g/dL Urine Color Yellow Urine Appearance Hazy Urine pH 6.0 (5.0-9.0) Ur Specific [place] >= 1.030 H (1.005-1.025) Urine Protein 30 (1+) H (Neg-Trace) mg/dL Urine Glucose (UA) Negative (Negative) mg/dL Urine Ketones Negative (Negative) mg/dL Urine Blood Negative (Negative) Urine Nitrite Negative (Negative) Ur Leukocyte Esterase Trace H (Negative) Urine RBC 0-2 (0-2) /HPF Urine WBC 0-5 (0-5) /HPF Ur Squamous Epith Cells 11-20 (0-2) /HPF Urine Bacteria Trace (None Seen) Hyaline Casts 3-5 (0-2) /LPF Granular Casts Present External Record Review External record reviewed: Inpatient record, Office record and Outpatient record Discharge Plan Discharge Clinical Impression: Paresthesia of bilateral legs Patient Disposition: Home, Self-Care Instructions: Paresthesia (ED) Additional Instructions: You were evaluated in the emergency department today for tingling to your legs. Your labs and urinalysis were reassuring. We recommend that you follow up with the conductor and engineer for these ongoing symptoms. We recommend that you follow up with your primary care provider as well. We recommend that you increase your gabapentin to twice daily to see if this improves your symptoms. Return to the emergency department if you develop worsening pain, numbness or tingling to your groin area, loss of control of your bowel or bladder, fever, or any other new or concerning symptoms. Prescriptions: No Action fluticasone propionate 50 mcg/actuation spray,suspension 1 spray intranasal Q12H Qty: 16 0RF Rx Instructions: administer into each nostril dexlansoprazole [Dexilant] 60 mg capsule,biphase delayed releas 60 mg PO DAILY Qty: 30 0RF meclizine [Motion Sickness (meclizine)] 25 mg tablet 25 mg PO DAILY PRN (Reason: motion sickness) Qty: 30 0RF pravastatin 40 mg tablet 40 mg PO DAILY Qty: 30 0RF lorazepam 0.5 mg tablet 0.5 mg PO BEDTIME PRN (Reason: anxiety) Qty: 30 0RF amlodipine 5 mg tablet 5 mg PO DAILY Qty: 30 0RF Referrals: Addi Salvador DO [Physician, Physiatry] Referral Note: Sxs ongoing for over a year Clinical Impression: Paresthesia of bilateral legs Print Language: Bulgarian
--- OUTSIDE RECORDS SUMMARY | 2025-08-28 08:20 | XMS_ITS | Patient Health Record ---
Author Organization [facility] [address] Address [address] [place] [address] Care Team Providers Care Industrial Editor Name Role Phone DEBRAANDI Mclaughlin Primary Care Provider RICHIE AKINS Unavailable [phone] MONTANA AKINS Unavailable [phone] ALVAREZ HUYNH Unavailable [phone] RYAN HUGGINS Unavailable [phone] Allergies Allergen (clinical drug ingredient) Drug/Non Drug Allergy documented on EMR Reaction Allergy Type Onset Date Status benzocaine (uncoded) Unknown Allergy Active pcn (uncoded) Unknown Allergy Active Results Component Value Reference Range Flag Notes Urinalysis, Routine-[id number] Reviewed date:10/05/2024 10:02:49 AM Interpretation: Performing Lab:[facility] [place], [address] [place] [address], [place], Phone - [phone], Director - Allan Notes/Report: Specific [place] 1.024 1.005-1.030 pH 5.5 5.0-7.5 Urine-Color Yellow Yellow Appearance Cloudy Clear A WBC Esterase 1+ Negative A Protein 1+ Negative/Trace A Glucose Negative Negative Ketones Trace Negative A Occult Blood Negative Negative Bilirubin Negative Negative Urobilinogen,Semi-Qn 0.2 0.2-1.0 mg/dL Nitrite, Urine Negative Negative Microscopic Examination See below: M icroscopic was indicated and was performed. WBC 0-5 0 - 5 /hpf RBC None seen 0 - 2 /hpf Epithelial Cells (non renal) >10 0 - 10 /hpf A Casts None seen None seen /lpf Crystals Present N/A A Crystal Type Calcium Oxalate N/A Bacteria Few None seen/Few CBC With Differential/Platel et-[id number] Reviewed date:10/05/2024 09:57:53 AM Interpretation: Performing Lab:[facility] [place], [address] [facility], Phone - [phone], Director - Allan Notes/Report: WBC 4.9 3.4-10.8 x10E3/uL RBC 3.95 [...] % Immature Grans (Abs) 0.0 0.0-0.1 x10E3/uL Comp. Metabolic Panel (14)-3 [id number] Reviewed date:10/05/2024 09:57:53 AM Interpretation: Performing Lab:[facility] [place], [address] [facility], [place], Phone - [phone], Director - Allan Notes/Report: Glucose 96 70-99 [...] 0-40 IU/L ALT (SGPT) 12 0-32 IU/L Reason For Referral Reason evaluate & treat Diagnosis 1 Leg pain, left (M79. 605) Diagnosis 2 Leg pain, right (M79 .604) [facility] Referring Provider First Name ANDI Referring Provider Last Name DEBRA Referring Provider Speciality Internal edicine Referred Provider Specialty Physical The rapist Clinical Notes Juanjo Chan 01/2024 11:17:43 AM > faxed pt info to [facility] in [facility]. p) [phone] f) [phone] Referral Priority Routine Reason evaluate & treat Diagnosis 1 Back pain, unspecifi ed back location, unspecified back pain laterality, unspecified chronicity (M54.9) [facility] Referring Provider First Name ANDI Referring Provider Last Name DEBRA Referring Provider Speciality Internal edicine Referred Provider Specialty Pain Medicin e Clinical Notes Juanjo Chan 01/2024 11:31:13 AM > faxed pt info to [facility]. p) [phone] f) [phone], Chikis Crespo 10/22/2024 03:44:27 PM > The patient was seen on 09/22/24 Referral Priority Routine Reason Frequency with [facility] u ro Diagnosis 1 Frequency of urinati on (R35.0) [facility] Referring Provider First Name MONTANA Referring Provider Last Name TASHI Referring Provider Speciality Internal M edicine Referred Provider Specialty Urology General Notes [facility], [address]; [facility] , P [phone], F [phone] Clinical Notes Susanne Gupta 2024 12:29:20 PM >Referral with note and labs sent to [facility] uro. Paper copy mailed to pt for record. TYZak Garcia Redena 12/09/2024 02:27:59 PM > Scheduled for 02/25 at 11 am. Pt aware Referral Priority Routine Reason Evaluate & Treat Diagnosis 1 Back pain, unspecifi ed back location, unspecified back pain laterality, unspecified chronicity (M54.9) Referral Organization [facility] Referring Provider First Name ANDI Referring Provider Last Name DEBRA Referring Provider Speciality Internal edicine Referred Provider Specialty Physical The rapist General Notes Racquel Oneill 0 06/08/2025 11:45:29 AM > Referral to [facility] Physical Therapy and faxed, p. [phone], f. [phone] Referral Priority Routine Diagnosis 1 Pain in right knee ( M25.561) Diagnosis 2 Other chronic pain ( G89.29) Diagnosis 3 Pain in left knee (M 25.562) Referral Organization [facility] Referring Provider First Name ANDI Referring Provider Last Name DEBRA Referring Provider Speciality Internal edicine Referred Provider [facility]ty [facility] MAY ESCAMILLA 0 06/30/2025 10:47:00 AM >Referral to [facility] Physical Therapy and faxed, p. [phone], f. [phone] Referral Priority Routine Medications Medication SIG (Take, Route, Frequency, Duration) Notes Start Date End Date Status Gabapentin 300 MG Capsule 1 capsule Oral ly twice a day; Duration: 14 days 08/18/2025 Active predniSONE 10 MG Tablet 4 tab x 3 days, 3 tabs x 3 days, 2 tabs x3 days, 1 tab x 3 days Orally as directed; Duration: 12 days 08/10/2025 Active LORazepam 0.5 MG Tablet 1 tablet Orally Once a day; Duration: 30 days 07/27/2025 Active Naproxen 500 MG Tablet 1 tablet with coco d or milk as needed Orally every 12 hrs; Duration: 10 days 06/08/2025 Active Pravastatin Sodium 40 MG Tablet 1 tablet Orally Once a day; Duration: 90 days Active amLODIPine Besylate 5 MG Tablet TAKE 1 TABLET BY MOUTH EVERY DAY FOR 90 DAYS Orally Once a day; Duration: 90 days Active Meclizine HCl 25 MG Tablet 1 tablet as needed Orally Once a day; Duration: 30 days As needed 05/25/2020 Active Tums 500 MG Tablet Chewable 1 tablet Orally Once a day; Duration: 30 day(s) Active Dexilant 60 MG Capsule Delayed Release 1 capsule Orally Once a day; Duration: 30 day(s) undefined 08/08/2018 Active Fluticasone Propionate 50 MCG/ACT Suspension 1 spray in each nostril Nasally Once a day; Duration: 30 days As needed Active Immunizations Vaccine Route Administration Date Status Comme nts Influenza, high dose seasonal IM Intramuscular 08/05/2023 Administered Social History Tobacco Use: Social History Observation Description Date Details (start date - stop date) Former Smoker NA - NA Social History Tobacco Use: Social Info Question Answer Notes Tobacco Use/Smoking Are you a former smoker Section Notes: Social History verified Social History verified Social History verified Social History verified Social History verified Social History verified Problems Problem Type SNOMED Code ICD Code Onset Dates Problem Status W/U Status Risk Notes Problem Iron deficiency anemia (58370496) Iron deficiency anemia, unspecified (D50.9) Active confirmed Problem Vitamin B>12< deficiency anaemia (34916104) Vitamin B12 deficiency anemia, unspecified (D51.9) Active confirmed Problem Vitamin D deficiency (94917031) Vitamin D deficiency, unspecified (E55.9) Active confirmed Problem Obesity (972014478) Obesity, unspecified (E66.9) Active confirmed Problem Hyperlipidemia (12931277) Hyperlipidemia, unspecified (E78.5) Active confirmed Problem Insomnia (655422144) Insomnia, unspecified (G47.00) Active confirmed Problem Chronic pain (52156469) Other chronic pain (G89.29) Active confirmed Problem Benign paroxysmal positional vertigo (123538944) Benign paroxysmal vertigo, bilateral (H81.13) Active confirmed Problem Essential hypertension (75436921) Essential (primary) hypertension (I10) Active confirmed Problem Atherosclerotic heart disease of [place] coronary artery without angina pectoris (001736123391157) Atherosclerotic heart disease of [place] coronary artery without angina pectoris (I25.10) Active confirmed Problem Right carotid artery stenosis (546367230671809) Occlusion and stenosis of right carotid artery (I65.21) Active confirmed Problem Atopic dermatitis (27885830) Atopic dermatitis, unspecified (L20.9) Active confirmed Problem 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 Problem Adult health examination (648426404) Encounter for general adult medical examination without abnormal findings (Z00.00) Active confirmed Problem Obese class II (573675991725163) Body mass index (BMI) 35.0-35.9, adult (Z68.35) Active confirmed Problem Prediabetes (899771279) Prediabetes (R73.03) Active confirmed Problem Body mass index 30.00 to 34.99 (114168297885800) Body mass index (BMI) of 34.0-34.9 in adult (Z68.34) Active confirmed Problem Backache (728572475) Back pain, unspecified back location, unspecified back pain laterality, unspecified chronicity (M54.9) Active confirmed Problem Anxiety (22122835) Anxiety (F41.9) Active confi rmed Problem Adult health examination (230194600) Adult general medical exam (Z00.00) Active confirmed Problem Atrial fibrillation (16399252) Atrial fibrillation, unspecified type (I48.91) Active confirmed Problem Arthritis (8541529) Arthritis (M19.90) Active c onfirmed Problem Insomnia (753674293) Insomnia, unspecified type (G47.00) Active confirmed Problem Vitamin D deficiency (43501469) Vitamin D deficiency (E55.9) Active confirmed Problem Arthralgia of the pelvic region and thigh (471884737) Left hip pain (M25.552) Active confirmed Problem Pain in limb (90132889) Leg pain, left (M79.605) Active confirmed Problem Sciatica (67728174) Sciatic leg pain (M54.30) Active confirmed Problem Obese class II (246948510745233) BMI 36.0-36.9,adult (Z68.36) Active confirmed Problem Vitamin B>12< deficiency anaemia (66667566) Anemia due to vitamin B12 deficiency, unspecified B12 deficiency type (D51.9) Active confirmed Problem Gastroesophageal reflux disease (228031703) GERD without esophagitis (K21.9) Active confirmed Problem Pain in limb (29086377) Pain in left hanks (M79.662) Active confirmed Problem Hyperlipidemia (13464043) Hyperlipidemia (E78.5) Active confirmed Problem Pain in limb (96974985) Leg pain, right (M79.604) Active confirmed Problem 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) Active confirmed Vital Signs Heart Rate 92 /min 08/18/2025 Oximetry 97 % 08/18/2025 Blood pressure diastolic 78 mm Hg 08/18/2025 Height 63 in 08/18/2025 Blood pressure systolic 128 mm Hg 08/18/2025 Weight 207.6 lbs 08/10/2025 BMI 36.77 kg/m2 08/10/2025 Encounters Encounter Location Date Provider Diagnosis [address] [address] 09/09/2024 ANDI DEBRA Left leg swelling M7 9.89 ; Atrial fibrillation, unspecified type I48.91 ; Leg pain, right M79.604 ; Leg pain, left M79.605 ; Hyperlipidemia, unspecified E78.5 ; Anxiety F41.9 ; Obesity, unspecified E66.9 ; Arthritis M19.90 and 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 [address] 10/05/2024 RICHIE AKINS Adult general medica l exam Z00.00 ; Hyperlipidemia, unspecified E78.5 and Essential (primary) hypertension I10 [address] [address] 03/15/2025 ANDI DEBRA Atrial fibrillation, unspecified type [...] of blood pressure without abnormal findings Z01.[address] [address] 06/08/2025 ANDI DEBRA Left leg swelling M7 9.89 ; Lower thoracic back pain M54.6 ; Hyperlipidemia, unspecified E78.5 ; Anxiety F41.9 ; Obesity, unspecified E66.9 ; Arthritis M19.90 ; 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 ; Vitamin D deficiency E55.9 and Encounter for examination of blood pressure without abnormal findings Z01.[address] [place], [place] 08/10/2025 ANDI DEBRA Left leg swelling M7 9.89 ; Lower thoracic back pain M54.6 ; Hyperlipidemia, unspecified E78.5 ; Anxiety F41.9 ; Obesity, unspecified E66.9 ; Arthritis M19.90 ; 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 ; Vitamin D deficiency E55.9 and Encounter for examination of blood pressure without abnormal findings Z01.[address] [place], [place] 08/18/2025 ANDI DEBRA Left leg swelling M7 9.89 ; Lower thoracic back pain M54.6 ; Hyperlipidemia, unspecified E78.5 ; Anxiety F41.9 ; Obesity, unspecified E66.9 ; Arthritis M19.90 ; 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 ; Vitamin D deficiency E55.9 and Encounter for examination of blood pressure without abnormal findings Z01.[address] [place], [place] 09/08/2024 NIDNIALL AKINS [facility] [address] [address] 09/11/[address]AL AKINS [facility] [address] [place], [place] 09/15/2024 [address] DEBRA [facility] [address] [place], [place] 10/05/[address]IDAH AKINS [facility] [address] [place], [place] 10/12/2024 RYAN HUGGINS [facility] [address] [place], [place] 11/10/[address] [facility] [address] [place], [place] 12/03/2024 TALAL AKINS [facility] [address] [address] 12/08/2024 RICHIE AKINS [facility] [address] [place] [address] 02/09/2025 NIDNIALL CLIFTONAN [facility] [address] [place] [address] 04/16/[address]BRA [facility] [address] [place] [address] 05/28/[address] [facility] [address] [place], [place] 05/31/[address]BRA [facility] [address] [place] [address] 06/03/2025 ALVAREZ BUTLERA [facility] [address] [place] [address] 06/08/2025 ANDI DEBRA [facility] [address] [place] [address] 06/30/[address] [facility] [address] [place] [address] 07/07/2025 ANDI DEBRA [facility] [address] [place] [address] 07/26/2025 MONTANA AKINS Left leg swelling M7 9.89 [facility] [address] [place] [address] 07/26/[address] DEBRA [facility] [address] [place] [address] 08/09/2025 ANDI DEBRA [facility] [address] [place], [place] 08/18/2025 ANDI DEBRA [facility] [address] [place] [address] 08/19/2025 MONTANA CLIFTONAN Pain in leg, unspeci fied M79.[address] [place], [place] 08/19/2025 ANDI DEBRA Aching leg syndrome of left lower extremity M79.605 and Aching leg syndrome of right lower extremity M79.[address] [place] [address] 08/25/2025 ANDI DEBRA Aching leg syndrome of right lower extremity [...] and ligamentum degenerative changes. Patient referred to [facility] spine and sports at this time as [...] for further evaluation.Patient is to sign a [facility] emergency department record release, states that she [...] Dictation was accomplished with the use of [employer] voice recognition software, which is prone to [...] and ligamentum degenerative changes. Patient referred to [facility] spine and sports at this time as [...] for further evaluation.Patient is to sign a [facility] emergency department record release, states that she [...] Dictation was accomplished with the use of [employer] voice recognition software, which is prone to [...] log exercise and discussed fitness Apps like [employer] which can help keep log off calories [...] and ligamentum degenerative changes. Patient referred to [facility] spine and sports at this time as she may benefit from a repeat MRI or cortisone injections. #Bilateral lower leg swelling: Resolved.. Had a recent benign US #Right knee pain: Continue following with [facility] spine [facility] [employer] for injections #Atrial fibrillation: Last cardiology note [...] any questions/concerns arise. Case discussed with Elmer KNOWELS who reviewed the assessment and plan. Chart, medications, labs, vital signs reviewed. Dictation was accomplished with the use of [employer] voice recognition software, which is prone to [...] function. Additionally placing physical therapy referral to [facility] as patient states that as of now she is living with her partner in [place]. #Pancreatic cyst: She states that she is [...] changes. #Right knee pain: Continue following with [facility] spine and sports for injections PRN #Atrial [...] Dictation was accomplished with the use of [employer] voice recognition software, which is prone to [...] function. Additionally placing physical therapy referral to [facility] as patient states that as of now she is living with her partner in [place]. #Pancreatic cyst: She states that she is [...] changes. #Right knee pain: Continue following with [facility] spine and sports for injections PRN #Atrial [...] Dictation was accomplished with the use of [employer] voice recognition software, which is prone to medical misidentifications and grammatical errors. This are unintentional and the practitioner does try to identify and correct these, but some could still be present. Please do not hesitate to contact practitioner for clarification. 07/26/2025 Left leg swelling (ICD-10 - M79.89) 08/10/2025 Left leg swelling (ICD-10 - M79.89) Nancy is a pleasant 80-year-old female with a past medical history of arthritis, anemia, anxiety, A-fib, hyperlipidemia, esophageal reflux, hypertension and insomnia who presents today for an urgent. #Bilateral lower extremity discomfort: Given the fact that patient does have a combination of burning bilateral lower extremity pain and a dull ache, will be prescribing patient with a prednisone taper to alleviate inflammation. I do feel as though this could be a combination of her varicose veins that are noted on exam along with nerve pain therefore consider vascular referral when we do follow-up in around 7 to 10 days after taper is completed. Patient states that she has trialed pregabalin and gabapentin without relief in the past. Patient recently completed [facility] physical therapy with minimal relief as well, patient admits that she would like to have a CT scan of her bilateral lower extremities with contrast for further evaluation.. Will reconvene this at follow-up...Patient may benefit from additional cortisone injection #Degenerative changes of left sacroiliac joint: Noted on x-ray on 05/05/2025 #Weight gain: Patient would like to look into Wegov[employer] at this time, will reconvene at follow-up #Lower back pain: Patient recently was seen by [facility] physical therapy for back pain. Patient admits that this was not helpful. She now admits that she does have bilateral lower extremity pain #Pancreatic cyst: She states that she is [...] changes. #Right knee pain: Continue following with [facility] spine and sports for injections PRN #Atrial [...] Dictation was accomplished with the use of [employer] voice recognition software, which is prone to medical misidentifications and grammatical errors. This are unintentional and the practitioner does try to identify and correct these, but some could still be present. Please do not hesitate to contact practitioner for clarification. 08/18/2025 Left leg swelling (ICD-10 - M79.89) Nancy is a pleasant 80-year-old female with a past medical history of arthritis, anemia, anxiety, A-fib, hyperlipidemia, esophageal reflux, hypertension and insomnia who presents today for an urgent. #Bilateral lower extremity discomfort: Continue prednisone taper, trialing gabapentin 300 mg twice daily as needed for pain. Patient requesting CT with contrast of her bilateral lower extremities. If this is not approved through insurance consider sending patient to vascular provider #Degenerative changes of left sacroiliac joint: Noted on x-ray on 05/05/2025 #Weight gain: Patient would like to look into [employer]gov[employer] at this time, will reconvene at follow-up #Lower back pain: Patient recently was seen by [facility] physical therapy for back pain. Patient admits that this was not helpful. She now admits that she does have bilateral lower extremity pain #Pancreatic cyst: She states that she is [...] changes. #Right knee pain: Continue following with [facility] spine and sports for injections PRN #Atrial [...] Dictation was accomplished with the use of D[employer] voice recognition software, which is prone to medical misidentifications and grammatical errors. This are unintentional and the practitioner does try to identify and correct these, but some could still be present. Please do not hesitate to contact practitioner for clarification. 08/19/2025 Pain in leg, unspecified (ICD-10 - M79.606) 08/19/2025 Aching leg syndrome of left lower extremity (ICD-10 - M79.605) 08/25/2025 Aching leg syndrome of right lower extremity (ICD-10 - M79.604) 08/19/2025 Aching leg syndrome of right lower extremity (ICD-10 - M79.604) 08/25/2025 Aching leg syndrome of left lower extremity (ICD-10 - M79.605) 08/18/2025 Lower thoracic back pain (ICD-10 - M54.6) Nancy is a pleasant 80-year-old female with a past medical history of arthritis, anemia, anxiety, A-fib, hyperlipidemia, esophageal reflux, hypertension and insomnia who presents today for an urgent. #Bilateral lower extremity discomfort: Continue prednisone taper, trialing gabapentin 300 mg twice daily as needed for pain. Patient requesting CT with contrast of her bilateral lower extremities. If this is not approved through insurance consider sending patient to vascular provider #Degenerative changes of left sacroiliac joint: Noted on x-ray on 05/05/2025 #Weight gain: Patient would like to look into [employer] at this time, will reconvene at follow-up #Lower back pain: Patient recently was seen by [facility] physical therapy for back pain. Patient admits that this was not helpful. She now admits that she does have bilateral lower extremity pain #Pancreatic cyst: She states that she is [...] changes. #Right knee pain: Continue following with [facility] spine and sports for injections PRN #Atrial [...] Dictation was accomplished with the use of DBV[employer] voice recognition software, which is prone to medical misidentifications and grammatical errors. This are unintentional and the practitioner does try to identify and correct these, but some could still be present. Please do not hesitate to contact practitioner for clarification. 08/10/2025 Lower thoracic back pain (ICD-10 - M54.6) Nancy is a pleasant 80-year-old female with a past medical history of arthritis, anemia, anxiety, A-fib, hyperlipidemia, esophageal reflux, hypertension and insomnia who presents today for an urgent. #Bilateral lower extremity discomfort: Given the fact that patient does have a combination of burning bilateral lower extremity pain and a dull ache, will be prescribing patient with a prednisone taper to alleviate inflammation. I do feel as though this could be a combination of her varicose veins that are noted on exam along with nerve pain therefore consider vascular referral when we do follow-up in around 7 to 10 days after taper is completed. Patient states that she has trialed pregabalin and gabapentin without relief in the past. Patient recently completed [facility] physical therapy with minimal relief as well, patient admits that she would like to have a CT scan of her bilateral lower extremities with contrast for further evaluation.. Will reconvene this at follow-up...Patient may benefit from additional cortisone injection #Degenerative changes of left sacroiliac joint: Noted on x-ray on 05/05/2025 #Weight gain: Patient would like to look into Wegovy at this time, will reconvene at follow-up #Lower back pain: Patient recently was seen by [facility] physical therapy for back pain. Patient admits that this was not helpful. She now admits that she does have bilateral lower extremity pain #Pancreatic cyst: She states that she is [...] changes. #Right knee pain: Continue following with [facility] spine [facility] sports for injections PRN #Atrial [...] Dictation was accomplished with the use of DBVu voice recognition software, which is prone to medical misidentifications and grammatical errors. This are unintentional and the practitioner does try to identify and correct these, but some could still be present. Please do not hesitate to contact practitioner for clarification. 08/18/2025 Hyperlipidemia, unspecified (ICD-10 - E78.5) Nancy is a pleasant 80-year-old female with a past medical history of arthritis, anemia, anxiety, A-fib, hyperlipidemia, esophageal reflux, hypertension and insomnia who presents today for an urgent. #Bilateral lower extremity discomfort: Continue prednisone taper, trialing gabapentin 300 mg twice daily as needed for pain. Patient requesting CT with contrast of her bilateral lower extremities. If this is not approved through insurance consider sending patient to vascular provider #Degenerative changes of left sacroiliac joint: Noted on x-ray on 05/05/2025 #Weight gain: Patient would like to look into Wegovy at this time, will reconvene at follow-up #Lower back pain: Patient recently was seen by [facility] physical therapy for back pain. Patient admits that this was not helpful. She now admits that she does have bilateral lower extremity pain #Pancreatic cyst: She states that she is [...] changes. #Right knee pain: Continue following with [facility] spine [facility] sports for injections PRN #Atrial [...] Dictation was accomplished with the use of DBVu voice recognition software, which is prone to [...] and ligamentum degenerative changes. Patient referred to [facility] spine and [employer] at this time as she may benefit from a repeat MRI or cortisone injections. #Bilateral lower leg swelling: Resolved.. Had a recent benign US #Right knee pain: Continue following with [facility] for injections #Atrial fibrillation: Last cardiology note [...] Dictation was accomplished with the use of DBVu voice recognition software, which is prone to [...] and ligamentum degenerative changes. Patient referred to [facility] spine and [employer] at this time as she may benefit from a repeat MRI or cortisone injections. #Bilateral lower leg swelling: Resolved.. Had a recent benign US #Right knee pain: Continue following with [facility] for injections #Atrial fibrillation: Last cardiology note [...] Dictation was accomplished with the use of DBVu voice recognition software, which is prone to [...] function. Additionally placing physical therapy referral to [facility] as patient states that as of now she is living with her partner in [place]. #Pancreatic cyst: She states that she is [...] changes. #Right knee pain: Continue following with [facility] spine and sports for injections PRN #Atrial [...] Dictation was accomplished with the use of DBVu voice recognition software, which is prone to [...] log exercise and discussed fitness Apps like [employer] which can help keep log off calories [...] and ligamentum degenerative changes. Patient referred to [facility] spine and sports at this time as [...] for further evaluation.Patient is to sign a [facility] emergency department record release, states that she [...] Dictation was accomplished with the use of DBVu voice recognition software, which is prone to [...] and ligamentum degenerative changes. Patient referred to [facility] spine and sports at this time as [...] for further evaluation.Patient is to sign a [facility] emergency department record release, states that she [...] Dictation was accomplished with the use of DBVu voice recognition software, which is prone to [...] log exercise and discussed fitness Apps like [employer] which can help keep log off calories [...] and ligamentum degenerative changes. Patient referred to [facility] spine and sports at this time as she may benefit from a repeat MRI or cortisone injections. #Bilateral lower leg swelling: Resolved.. Had a recent benign US #Right knee pain: Continue following with [facility] spine and sports for injections #Atrial fibrillation: [...] Dictation was accomplished with the use of Dragon voice recognition software, which is prone to medical misidentifications and grammatical errors. This are unintentional and the practitioner does try to identify and correct these, but some could still be present. Please do not hesitate to contact practitioner for clarification. 08/10/2025 Hyperlipidemia, unspecified (ICD-10 - E78.5) Nancy is a pleasant 80-year-old female with a past medical history of arthritis, anemia, anxiety, A-fib, hyperlipidemia, esophageal reflux, hypertension and insomnia who presents today for an urgent. #Bilateral lower extremity discomfort: Given the fact that patient does have a combination of burning bilateral lower extremity pain and a dull ache, will be prescribing patient with a prednisone taper to alleviate inflammation. I do feel as though this could be a combination of her varicose veins that are noted on exam along with nerve pain therefore consider vascular referral when we do follow-up in around 7 to 10 days after taper is completed. Patient states that she has trialed pregabalin and gabapentin without relief in the past. Patient recently completed [facility] physical therapy with minimal relief as well, patient admits that she would like to have a CT scan of her bilateral lower extremities with contrast for further evaluation.. Will reconvene this at follow-up...Patient may benefit from additional cortisone injection #Degenerative changes of left sacroiliac joint: Noted on x-ray on 05/05/2025 #Weight gain: Patient would like to look into Wegovy at this time, will reconvene at follow-up #Lower back pain: Patient recently was seen by [facility] physical therapy for back pain. Patient admits that this was not helpful. She now admits that she does have bilateral lower extremity pain #Pancreatic cyst: She states that she is [...] changes. #Right knee pain: Continue following with [facility] spine and sports for injections PRN #Atrial [...] Dictation was accomplished with the use of DBVu voice recognition software, which is prone to [...] function. Additionally placing physical therapy referral to [facility] as patient states that as of now she is living with her partner in [place]. #Pancreatic cyst: She states that she is [...] changes. #Right knee pain: Continue following with [facility] spine and sports for injections PRN #Atrial [...] Dictation was accomplished with the use of DBVu voice recognition software, which is prone to medical misidentifications and grammatical errors. This are unintentional and the practitioner does try to identify and correct these, but some could still be present. Please do not hesitate to contact practitioner for clarification. 08/18/2025 Anxiety (ICD-10 - F41.9) Nancy is a pleasant 80-year-old female with a past medical history of arthritis, anemia, anxiety, A-fib, hyperlipidemia, esophageal reflux, hypertension and insomnia who presents today for an urgent. #Bilateral lower extremity discomfort: Continue prednisone taper, trialing gabapentin 300 mg twice daily as needed for pain. Patient requesting CT with contrast of her bilateral lower extremities. If this is not approved through insurance consider sending patient to vascular provider #Degenerative changes of left sacroiliac joint: Noted on x-ray on 05/05/2025 #Weight gain: Patient would like to look into Wegovy at this time, will reconvene at follow-up #Lower back pain: Patient recently was seen by [facility] physical therapy for back pain. Patient admits that this was not helpful. She now admits that she does have bilateral lower extremity pain #Pancreatic cyst: She states that she is [...] changes. #Right knee pain: Continue following with [facility] spine and sports for injections PRN #Atrial [...] Dictation was accomplished with the use of DBVu voice recognition software, which is prone to [...] function. Additionally placing physical therapy referral to [facility] as patient states that as of now she is living with her partner in [place]. #Pancreatic cyst: She states that she is [...] changes. #Right knee pain: Continue following with [facility] spine and sports for injections PRN #Atrial [...] Dictation was accomplished with the use of DBVu voice recognition software, which is prone to medical misidentifications and grammatical errors. This are unintentional and the practitioner does try to identify and correct these, but some could still be present. Please do not hesitate to contact practitioner for clarification. 08/18/2025 Obesity, unspecified (ICD-10 - E66.9) Nancy is a pleasant 80-year-old female with a past medical history of arthritis, anemia, anxiety, A-fib, hyperlipidemia, esophageal reflux, hypertension and insomnia who presents today for an urgent. #Bilateral lower extremity discomfort: Continue prednisone taper, trialing gabapentin 300 mg twice daily as needed for pain. Patient requesting CT with contrast of her bilateral lower extremities. If this is not approved through insurance consider sending patient to vascular provider #Degenerative changes of left sacroiliac joint: Noted on x-ray on 05/05/2025 #Weight gain: Patient would like to look into Wegovy at this time, will reconvene at follow-up #Lower back pain: Patient recently was seen by [facility] physical therapy for back pain. Patient admits that this was not helpful. She now admits that she does have bilateral lower extremity pain #Pancreatic cyst: She states that she is [...] changes. #Right knee pain: Continue following with [facility] spine and sports for injections PRN #Atrial [...] Dictation was accomplished with the use of DBVu voice recognition software, which is prone to medical misidentifications and grammatical errors. This are unintentional and the practitioner does try to identify and correct these, but some could still be present. Please do not hesitate to contact practitioner for clarification. 08/10/2025 Anxiety (ICD-10 - F41.9) Nancy is a pleasant 80-year-old female with a past medical history of arthritis, anemia, anxiety, A-fib, hyperlipidemia, esophageal reflux, hypertension and insomnia who presents today for an urgent. #Bilateral lower extremity discomfort: Given the fact that patient does have a combination of burning bilateral lower extremity pain and a dull ache, will be prescribing patient with a prednisone taper to alleviate inflammation. I do feel as though this could be a combination of her varicose veins that are noted on exam along with nerve pain therefore consider vascular referral when we do follow-up in around 7 to 10 days after taper is completed. Patient states that she has trialed pregabalin and gabapentin without relief in the past. Patient recently completed [facility] physical therapy with minimal relief as well, patient admits that she would like to have a CT scan of her bilateral lower extremities with contrast for further evaluation.. Will reconvene this at follow-up...Patient may benefit from additional cortisone injection #Degenerative changes of left sacroiliac joint: Noted on x-ray on 05/05/2025 #Weight gain: Patient would like to look into Wegovy at this time, will reconvene at follow-up #Lower back pain: Patient recently was seen by [facility] physical therapy for back pain. Patient admits that this was not helpful. She now admits that she does have bilateral lower extremity pain #Pancreatic cyst: She states that she is [...] changes. #Right knee pain: Continue following with [facility] spine and sports for injections PRN #Atrial [...] Dictation was accomplished with the use of DBVu voice recognition software, which is prone to [...] and ligamentum degenerative changes. Patient referred to [facility] spine and [employer] at this time as she may benefit from a repeat MRI or cortisone injections. #Bilateral lower leg swelling: Resolved.. Had a recent benign US #Right knee pain: Continue following with [facility] [employer] for injections #Atrial fibrillation: Last cardiology note [...] Dictation was accomplished with the use of DBVu voice recognition software, which is prone to [...] and ligamentum degenerative changes. Patient referred to [facility] spine and sports at this time as [...] for further evaluation.Patient is to sign a [facility] emergency department record release, states that she [...] Dictation was accomplished with the use of DBVu voice recognition software, which is prone to [...] and ligamentum degenerative changes. Patient referred to [facility] spine and sports at this time as [...] for further evaluation.Patient is to sign a [facility] emergency department record release, states that she [...] Dictation was accomplished with the use of DBVu voice recognition software, which is prone to [...] and ligamentum degenerative changes. Patient referred to [facility] spine and sports at this time as she may benefit from a repeat MRI or cortisone injections. #Bilateral lower leg swelling: Resolved.. Had a recent benign US #Right knee pain: Continue following with [facility] [employer] spine and sports for injections #Atrial fibrillation: [...] Dictation was accomplished with the use of DBVu voice recognition software, which is prone to [...] function. Additionally placing physical therapy referral to [facility] as patient states that as of now she is living with her partner in [place]. #Pancreatic cyst: She states that she is [...] changes. #Right knee pain: Continue following with [facility] spine and sports for injections PRN #Atrial [...] Dictation was accomplished with the use of DBVu voice recognition software, which is prone to medical misidentifications and grammatical errors. This are unintentional and the practitioner does try to identify and correct these, but some could still be present. Please do not hesitate to contact practitioner for clarification. 08/10/2025 Obesity, unspecified (ICD-10 - E66.9) Nancy is a pleasant 80-year-old female with a past medical history of arthritis, anemia, anxiety, A-fib, hyperlipidemia, esophageal reflux, hypertension and insomnia who presents today for an urgent. #Bilateral lower extremity discomfort: Given the fact that patient does have a combination of burning bilateral lower extremity pain and a dull ache, will be prescribing patient with a prednisone taper to alleviate inflammation. I do feel as though this could be a combination of her varicose veins that are noted on exam along with nerve pain therefore consider vascular referral when we do follow-up in around 7 to 10 days after taper is completed. Patient states that she has trialed pregabalin and gabapentin without relief in the past. Patient recently completed [facility] physical therapy with minimal relief as well, patient admits that she would like to have a CT scan of her bilateral lower extremities with contrast for further evaluation.. Will reconvene this at follow-up...Patient may benefit from additional cortisone injection #Degenerative changes of left sacroiliac joint: Noted on x-ray on 05/05/2025 #Weight gain: Patient would like to look into Wegovy at this time, will reconvene at follow-up #Lower back pain: Patient recently was seen by [facility] physical therapy for back pain. Patient admits that this was not helpful. She now admits that she does have bilateral lower extremity pain #Pancreatic cyst: She states that she is [...] changes. #Right knee pain: Continue following with [facility] spine and sports for injections PRN #Atrial [...] Dictation was accomplished with the use of DBVu voice recognition software, which is prone to medical misidentifications and grammatical errors. This are unintentional and the practitioner does try to identify and correct these, but some could still be present. Please do not hesitate to contact practitioner for clarification. 08/18/2025 Arthritis (ICD-10 - M19.90) Nancy is a pleasant 80-year-old female with a past medical history of arthritis, anemia, anxiety, A-fib, hyperlipidemia, esophageal reflux, hypertension and insomnia who presents today for an urgent. #Bilateral lower extremity discomfort: Continue prednisone taper, trialing gabapentin 300 mg twice daily as needed for pain. Patient requesting CT with contrast of her bilateral lower extremities. If this is not approved through insurance consider sending patient to vascular provider #Degenerative changes of left sacroiliac joint: Noted on x-ray on 05/05/2025 #Weight gain: Patient would like to look into Wegovy at this time, will reconvene at follow-up #Lower back pain: Patient recently was seen by [facility] physical therapy for back pain. Patient admits that this was not helpful. She now admits that she does have bilateral lower extremity pain #Pancreatic cyst: She states that she is [...] changes. #Right knee pain: Continue following with [facility] spine and sports for injections PRN #Atrial [...] Dictation was accomplished with the use of DBVu voice recognition software, which is prone to medical misidentifications and grammatical errors. This are unintentional and the practitioner does try to identify and correct these, but some could still be present. Please do not hesitate to contact practitioner for clarification. 08/18/2025 Degeneration of intervertebral disc of lumbar region with lower extremity pain (ICD-10 - M51.361) Nancy is a pleasant 80-year-old female with a past medical history of arthritis, anemia, anxiety, A-fib, hyperlipidemia, esophageal reflux, hypertension and insomnia who presents today for an urgent. #Bilateral lower extremity discomfort: Continue prednisone taper, trialing gabapentin 300 mg twice daily as needed for pain. Patient requesting CT with contrast of her bilateral lower extremities. If this is not approved through insurance consider sending patient to vascular provider #Degenerative changes of left sacroiliac joint: Noted on x-ray on 05/05/2025 #Weight gain: Patient would like to look into Wegovy at this time, will reconvene at follow-up #Lower back pain: Patient recently was seen by [facility] physical therapy for back pain. Patient admits that this was not helpful. She now admits that she does have bilateral lower extremity pain #Pancreatic cyst: She states that she is [...] changes. #Right knee pain: Continue following with [facility] spine and sports for injections PRN #Atrial [...] Dictation was accomplished with the use of DBVu voice recognition software, which is prone to medical misidentifications and grammatical errors. This are unintentional and the practitioner does try to identify and correct these, but some could still be present. Please do not hesitate to contact practitioner for clarification. 08/10/2025 Arthritis (ICD-10 - M19.90) Nancy is a pleasant 80-year-old female with a past medical history of arthritis, anemia, anxiety, A-fib, hyperlipidemia, esophageal reflux, hypertension and insomnia who presents today for an urgent. #Bilateral lower extremity discomfort: Given the fact that patient does have a combination of burning bilateral lower extremity pain and a dull ache, will be prescribing patient with a prednisone taper to alleviate inflammation. I do feel as though this could be a combination of her varicose veins that are noted on exam along with nerve pain therefore consider vascular referral when we do follow-up in around 7 to 10 days after taper is completed. Patient states that she has trialed pregabalin and gabapentin without relief in the past. Patient recently completed [facility] physical therapy with minimal relief as well, patient admits that she would like to have a CT scan of her bilateral lower extremities with contrast for further evaluation.. Will reconvene this at follow-up...Patient may benefit from additional cortisone injection #Degenerative changes of left sacroiliac joint: Noted on x-ray on 05/05/2025 #Weight gain: Patient would like to look into Wegovy at this time, will reconvene at follow-up #Lower back pain: Patient recently was seen by [facility] physical therapy for back pain. Patient admits that this was not helpful. She now admits that she does have bilateral lower extremity pain #Pancreatic cyst: She states that she is [...] changes. #Right knee pain: Continue following with [facility] spine and sports for injections PRN #Atrial [...] Dictation was accomplished with the use of DBVu voice recognition software, which is prone to [...] function. Additionally placing physical therapy referral to [facility] as patient states that as of now she is living with her partner in [place]. #Pancreatic cyst: She states that she is [...] changes. #Right knee pain: Continue following with [facility] spine and sports for injections PRN #Atrial [...] Dictation was accomplished with the use of DBVu voice recognition software, which is prone to [...] and ligamentum degenerative changes. Patient referred to [facility] spine and [employer] at this time as she may benefit from a repeat MRI or cortisone injections. #Bilateral lower leg swelling: Resolved.. Had a recent benign US #Right knee pain: Continue following with [facility] [employer] for injections #Atrial fibrillation: Last cardiology note [...] Dictation was accomplished with the use of DBVu voice recognition software, which is prone to [...] and ligamentum degenerative changes. Patient referred to [facility] spine and [employer] at this time as she may benefit [...] for further evaluation.Patient is to sign a [facility] emergency department record release, states that she [...] Dictation was accomplished with the use of DBVu voice recognition software, which is prone to [...] and ligamentum degenerative changes. Patient referred to [facility] at this time as [...] for further evaluation.Patient is to sign a [facility] emergency department record release, states that she [...] Dictation was accomplished with the use of DBVu voice recognition software, which is prone to [...] function. Additionally placing physical therapy referral to [facility] as patient states that as of now she is living with her partner in [place]. #Pancreatic cyst: She states that she is [...] changes. #Right knee pain: Continue following with [facility] spine [facility] sports for injections PRN #Atrial [...] Dictation was accomplished with the use of DBVu voice recognition software, which is prone to [...] and ligamentum degenerative changes. Patient referred to [facility] [facility] spine and [facility] at this time as she may benefit from a repeat MRI or cortisone injections. #Bilateral lower leg swelling: Resolved.. Had a recent benign US #Right knee pain: Continue following with [facility] spine [facility] for injections #Atrial fibrillation: Last cardiology note [...] Dictation was accomplished with the use of DBVu voice recognition software, which is prone to medical misidentifications and grammatical errors. This are unintentional and the practitioner does try to identify and correct these, but some could still be present. Please do not hesitate to contact practitioner for clarification. 08/10/2025 Degeneration of intervertebral disc of lumbar region with lower extremity pain (ICD-10 - M51.361) Nancy is a pleasant 80-year-old female with a past medical history of arthritis, anemia, anxiety, A-fib, hyperlipidemia, esophageal reflux, hypertension and insomnia who presents today for an urgent. #Bilateral lower extremity discomfort: Given the fact that patient does have a combination of burning bilateral lower extremity pain and a dull ache, will be prescribing patient with a prednisone taper to alleviate inflammation. I do feel as though this could be a combination of her varicose veins that are noted on exam along with nerve pain therefore consider vascular referral when we do follow-up in around 7 to 10 days after taper is completed. Patient states that she has trialed pregabalin and gabapentin without relief in the past. Patient recently completed [facility] physical therapy with minimal relief as well, patient admits that she would like to have a CT scan of her bilateral lower extremities with contrast for further evaluation.. Will reconvene this at follow-up...Patient may benefit from additional cortisone injection #Degenerative changes of left sacroiliac joint: Noted on x-ray on 05/05/2025 #Weight gain: Patient would like to look into Wegovy at this time, will reconvene at follow-up #Lower back pain: Patient recently was seen by [facility] physical therapy for back pain. Patient admits that this was not helpful. She now admits that she does have bilateral lower extremity pain #Pancreatic cyst: She states that she is [...] changes. #Right knee pain: Continue following with [facility] spine and sports for injections PRN #Atrial [...] Dictation was accomplished with the use of DBVu voice recognition software, which is prone to medical misidentifications and grammatical errors. This are unintentional and the practitioner does try to identify and correct these, but some could still be present. Please do not hesitate to contact practitioner for clarification. 08/18/2025 Vitamin D deficiency (ICD-10 - E55.9) Nancy is a pleasant 80-year-old female with a past medical history of arthritis, anemia, anxiety, A-fib, hyperlipidemia, esophageal reflux, hypertension and insomnia who presents today for an urgent. #Bilateral lower extremity discomfort: Continue prednisone taper, trialing gabapentin 300 mg twice daily as needed for pain. Patient requesting CT with contrast of her bilateral lower extremities. If this is not approved through insurance consider sending patient to vascular provider #Degenerative changes of left sacroiliac joint: Noted on x-ray on 05/05/2025 #Weight gain: Patient would like to look into Wegovy at this time, will reconvene at follow-up #Lower back pain: Patient recently was seen by [facility] physical therapy for back pain. Patient admits that this was not helpful. She now admits that she does have bilateral lower extremity pain #Pancreatic cyst: She states that she is [...] changes. #Right knee pain: Continue following with [facility] spine and sports for injections PRN #Atrial [...] Dictation was accomplished with the use of DBVu voice recognition software, which is prone to medical misidentifications and grammatical errors. This are unintentional and the practitioner does try to identify and correct these, but some could still be present. Please do not hesitate to contact practitioner for clarification. 08/10/2025 Vitamin D deficiency (ICD-10 - E55.9) Nancy is a pleasant 80-year-old female with a past medical history of arthritis, anemia, anxiety, A-fib, hyperlipidemia, esophageal reflux, hypertension and insomnia who presents today for an urgent. #Bilateral lower extremity discomfort: Given the fact that patient does have a combination of burning bilateral lower extremity pain and a dull ache, will be prescribing patient with a prednisone taper to alleviate inflammation. I do feel as though this could be a combination of her varicose veins that are noted on exam along with nerve pain therefore consider vascular referral when we do follow-up in around 7 to 10 days after taper is completed. Patient states that she has trialed pregabalin and gabapentin without relief in the past. Patient recently completed [facility] physical therapy with minimal relief as well, patient admits that she would like to have a CT scan of her bilateral lower extremities with contrast for further evaluation.. Will reconvene this at follow-up...Patient may benefit from additional cortisone injection #Degenerative changes of left sacroiliac joint: Noted on x-ray on 05/05/2025 #Weight gain: Patient would like to look into Wegovy at this time, will reconvene at follow-up #Lower back pain: Patient recently was seen by [facility] physical therapy for back pain. Patient admits that this was not helpful. She now admits that she does have bilateral lower extremity pain #Pancreatic cyst: She states that she is [...] changes. #Right knee pain: Continue following with [facility] spine and sports for injections PRN #Atrial [...] Dictation was accomplished with the use of DBVu voice recognition software, which is prone to medical misidentifications and grammatical errors. This are unintentional and the practitioner does try to identify and correct these, but some could still be present. Please do not hesitate to contact practitioner for clarification. 08/18/2025 Encounter for examination of blood pressure without abnormal findings (ICD-10 - Z01.30) Nancy is a pleasant 80-year-old female with a past medical history of arthritis, anemia, anxiety, A-fib, hyperlipidemia, esophageal reflux, hypertension and insomnia who presents today for an urgent. #Bilateral lower extremity discomfort: Continue prednisone taper, trialing gabapentin 300 mg twice daily as needed for pain. Patient requesting CT with contrast of her bilateral lower extremities. If this is not approved through insurance consider sending patient to vascular provider #Degenerative changes of left sacroiliac joint: Noted on x-ray on 05/05/2025 #Weight gain: Patient would like to look into Wegovy at this time, will reconvene at follow-up #Lower back pain: Patient recently was seen by [facility] physical therapy for back pain. Patient admits that this was not helpful. She now admits that she does have bilateral lower extremity pain #Pancreatic cyst: She states that she is [...] changes. #Right knee pain: Continue following with [facility] spine and sports for injections PRN #Atrial [...] Dictation was accomplished with the use of DBVu voice recognition software, which is prone to [...] function. Additionally placing physical therapy referral to [facility] as patient states that as of now she is living with her partner in [place]. #Pancreatic cyst: She states that she is [...] changes. #Right knee pain: Continue following with [facility] spine and sports for injections PRN #Atrial [...] Dictation was accomplished with the use of DBVu voice recognition software, which is prone to [...] and ligamentum degenerative changes. Patient referred to [facility] spine and sports at this time as she may benefit from a repeat MRI or cortisone injections. #Bilateral lower leg swelling: Resolved.. Had a recent benign US #Right knee pain: Continue following with [facility] spine and sports for injections #Atrial fibrillation: [...] Dictation was accomplished with the use of DBVu voice recognition software, which is prone to [...] and ligamentum degenerative changes. Patient referred to [facility] spine and sports at this time as [...] for further evaluation.Patient is to sign a [facility] emergency department record release, states that she [...] Dictation was accomplished with the use of DBVu voice recognition software, which is prone to [...] and ligamentum degenerative changes. Patient referred to [facility] spine and sports at this time as she may benefit from a repeat MRI or cortisone injections. #Bilateral lower leg swelling: Resolved.. Had a recent benign US #Right knee pain: Continue following with [facility] spine and [employer] for injections #Atrial fibrillation: Last cardiology note [...] Dictation was accomplished with the use of DBVu voice recognition software, which is prone to medical misidentifications and grammatical errors. This are unintentional and the practitioner does try to identify and correct these, but some could still be present. Please do not hesitate to contact practitioner for clarification. 08/10/2025 Encounter for examination of blood pressure without abnormal findings (ICD-10 - Z01.30) Nancy is a pleasant 80-year-old female with a past medical history of arthritis, anemia, anxiety, A-fib, hyperlipidemia, esophageal reflux, hypertension and insomnia who presents today for an urgent. #Bilateral lower extremity discomfort: Given the fact that patient does have a combination of burning bilateral lower extremity pain and a dull ache, will be prescribing patient with a prednisone taper to alleviate inflammation. I do feel as though this could be a combination of her varicose veins that are noted on exam along with nerve pain therefore consider vascular referral when we do follow-up in around 7 to 10 days after taper is completed. Patient states that she has trialed pregabalin and gabapentin without relief in the past. Patient recently completed [facility] physical therapy with minimal relief as well, patient admits that she would like to have a CT scan of her bilateral lower extremities with contrast for further evaluation.. Will reconvene this at follow-up...Patient may benefit from additional cortisone injection #Degenerative changes of left sacroiliac joint: Noted on x-ray on 05/05/2025 #Weight gain: Patient would like to look into Wegovy at this time, will reconvene at follow-up #Lower back pain: Patient recently was seen by [facility] physical therapy for back pain. Patient admits that this was not helpful. She now admits that she does have bilateral lower extremity pain #Pancreatic cyst: She states that she is [...] changes. #Right knee pain: Continue following with [facility] spine and sports for injections PRN #Atrial [...] Dictation was accomplished with the use of DBVu voice recognition software, which is prone to [...] and ligamentum degenerative changes. Patient referred to [facility] spine and sports at this time as she may benefit from a repeat MRI or cortisone injections. #Bilateral lower leg swelling: Resolved.. Had a recent benign US #Right knee pain: Continue following with [facility] spine [facility] for injections #Atrial fibrillation: Last cardiology note [...] Dictation was accomplished with the use of DBVu voice recognition software, which is prone to [...] 11/28/2020 TSH WITH REFLEX TO FT4 10/30/2018 CT Ang L-Ext w and/or w/o Contrast bilat 08/25/2025 CT L-Ext w Contrast bilat 08/19/2025 CT L-Ext w Contrast bilat 08/19/2025 US Head/Neck Soft Tissue 10/30/2018 XR Hip [...] Name:ANDI RICHARDSON, 01:00:00 PM, [address], [place], [address], Provider Name:ANDI RICHARDSON, 02:00:00 PM, [address], [place], [address], Insurance Providers Payer Name Payer Address Payer Phone Subscriber Number Group Number Insured Name Patient Relationship to Insured Coverage Start Date Coverage End Date Medicare Part B J14 [address] [place] [id number] NANCY REYNOLDS Self - patient is the insured 2 [employer] [address] mojgan rojas [id number] NANCY REYNOLDS Self - patient is the insured Medical (General) History Medical History History ICD Code anemia anxiety Atrial fibrillation hypertension insomnia Anxiety F41.9 Hyperlipidemia E78.5 Gastro-esophageal reflux disease without esophagitis K21.9 Arthritis M19.90 Surgical History Surgery Date(Month/Year) cholecystectomy lasik hysterectomy colonoscopy 3 years cardiac ablation Hospitalization History Reason Date(Month/Year) SAME SURGICAL
--- OUTSIDE RECORDS SUMMARY | 2025-08-28 08:20 | XMS_ITS | Encounter Summary ---
Author Organization [facility] Address [address] [place] [address] Care Team Providers Care Fisheries Technician Name Role Phone Edwige Cline MD Primary Care Provider [phone] Encounter Details Date Type Department Care Team (Late st Contact Info) Description 07/15/2025 Lab Requisition [facility] [address] [facility] [place] [address] Nadia Armendariz MD [address] [facility] [address] [place] [phone] Acute vaginitis Social History Tobacco Use Types [...] vaginalis Negative Negative 07/16/2025 1:23 PM EDT [facility] Gardnerella vaginalis Negative Negative 07/16/2025 1:23 PM EDT [facility] Becca Species Negative Negative 1:23 PM EDT [facility] Swab Vaginal structure / Unknown Non-blood Collection / Unknown 07/15/2025 3:00 PM EDT 07/15/2025 5:51 PM EDT us Nadia Armendariz MD LAB MICROBIOLOGY - GENER AL ORDERABLES Final Result [facility] [address] [place] [address], documented in this encounter Visit Diagnoses Diagnosis Acute vaginitis Unspecified vaginitis and vulvovaginitis documented in this encounter Care Teams Fisheries Technician Relationship Specialty Start Date End Date Edwige Cline MD [address] [place] [address] PCP - General Internal Medicine 05/02/15 documented as of this encounter
--- OUTSIDE RECORDS SUMMARY | 2025-08-28 08:20 | XMS_ITS | Clinical Summary ---
Author Organization [facility] Address [address] [place] [address] Phone Care Team Providers Care Serology Technician Name Role Phone Edwige Cline MD Primary Care Provider [phone] Encounters Date Type Department Care Team Description 08/26/2025 10:57 AM EST - 08/26/2025 11:59 PM EST Hospital Encounter [facility] CT Scan [address] [place] [address] Pain in leg, unspecified Discharge Disposition: Home or Self Care 07/15/2025 Lab Requisition [facility] [address] [facility] [place] [address] Nadia Armendariz MD Acute vaginitis [...] Test 09/09/2024 Depression Screening 10/07/2024 COVID-19 Vaccine (1 - 2024-2 6 season) 2025 Influenza Vaccine (#1) 2025 08/05/2023 HIB Vaccines Aged Out No longer eligi [...] vaginalis Negative Negative 07/16/2025 1:23 PM EDT [facility] Gardnerella vaginalis Negative Negative 07/16/2025 1:23 PM EDT [facility] Becca Species Negative Negative 1:23 PM EDT [facility] Swab Vaginal structure / Unknown Non-blood Collection / Unknown 07/15/2025 3:00 PM EDT 07/15/2025 5:51 PM EDT us Nadia Armendariz MD LAB MICROBIOLOGY - GENER AL ORDERABLES Final Result [facility] LAB [address] [facility] [place] [address], [place] [phone] from Last 3 Months Insurance MEDICARE [facility] Care Teams Serology Technician Relationship Specialty Start Date End Date Edwige Cline MD [address] [place] [phone] PCP - General Internal Medicine 05/02/15
--- OUTSIDE RECORDS SUMMARY | 2025-08-28 08:20 | XMS_ITS | Data Portability ---
Author Organization [facility], [address] Address [address] [place] [address] Assessment No assessment recorded. Plan of Treatment [...] on warfarin for A-fib. 2023 024 [email or web address] [facility] (Hsg Scheduling), [address] [place], [address] 4 15:09:02 XR, tibia + fibula, 2 view 2023 024 [place] [facility], [address] [place] [address], [address], 10:57:06 Medication Orders nystatin 100,000 unit/gram topical powder 2023 024 [id number], [address] [place], [address], 09:53:52 Patient TargetsNo targets recorded. Patient Instructions Encounter Date Encounter Id Patient Instructions Last Modified By Organization Details Last Modified Time 11/04/2023 [id number] candidiasis: car e instructions [email or web address] Not available 11/04/2023 09:54:44 Use the nystatin powder as directed. Keep affected area clean and dry. See printed instructions. Follow-up with your doctor in one week. Seek Emergency Medical evaluation for any worsening symptoms, particularly for increased pain, redness, swelling or for fever, chills, purulent drainage. [email or web address] Not available 11/04/2023 09:55:33 04/20/2024 [id number] leg pain: care instructions [email or web address] Not available 04/20/2024 10:05:20 Reason for Referral None Reported. Results Created Date Observation Date Name Description Value Unit Range Abnormal Flag Note LastModifiedBy Organization Detail LastModifiedTime 04/20/20 24 04/20/2024 XR, tibia + fibul a, 2 view No observ ation record ed. [email or web address] [address] [place], [place], [address], 04/20/2024 11:21:32 Result Notes None recorded. Problems Name Problem SNOMED Code Status Onset Date Resolution Date Notes Provider Name and Address Organization Details Recorded Time Atrial fibrillatio n 42702200 Active ALVAREZ MINEO null, PA - [facility] 4 09:32:04 Hypertensiv e disorder 15994379 Active ALVAREZ MINEO null, PA - [facility] 4 09:32:13 Acid reflux 320463331 Active Thalia Tina null, PA - [facility] 4 09:52:36 Pain of left lower leg 4722281786524 01 Active 2023 Santy Ace NP [address] [place], [address], PA - [facility] 4 10:04:23 Pain due to varicose veins of lower extremity 570904894 Active 2023 Santy Ace NP [address] [place], [address], PA - [facility] 4 10:20:48 [...] Name and Address Organization Details Recorded Time 391013 latex environme nt,medica tion Not available Not available Not available 11/04/2023 39975 91 RxNorm ALVAREZ SHELDONLance null, PA - [facility] 4 09:31:08 493432 Product containin g penicilli n (product) medicatio n Not available Not available Not available 11/04/2023 91741 8001 SNOMED ALVAREZ RUIZ null, PA - [facility] 4 09:30:48 057615 benzocain e medicatio n Not available Not [...] mass index (BMI) Body weight Oxygen saturation Heart rate Respiratory rate Body temperature Pain severity - 0-10 verbal numeric rating [Score] - Reported Systolic And Diastolic Provider Name and Address Organization Details Last Updated DateTime 4 162.56 cm 34.3 kg/m2 30511.4 7 g 97 % 78 /min 18 /min 98.1 [degF] 2 114/69 mm[Hg] ALVAREZ SHELDONO PA - [facility] 4 09:35:35 Date Recorded Body height Body temperature Body mass index (BMI) Body weight Oxygen saturation Heart rate Pain severity - 0-10 verbal numeric rating [Score] - Reported Respiratory rate Systolic And Diastolic Provider Name and Address Organization Details Last Updated DateTime 4 162.56 cm 98.1 [degF] 32.4 kg/m2 03798.9 6 g 94 % 96 /min 9 18 /min 152/73 mm[Hg] Thalia Wilder PA - [facility] 09:49:37 Social History Question Answer Notes LastModified by [employer] Details LastModified Time Tobacco Smoking Status Never [...] Functional Status Question Answer Note LastModified by [employer] Details LastModified Time Do you use any [...] ICD10 Code Diagnosis IMO Codes Diagnosis Note [id number] Christina Escobedo [facility] [address] [place] [address] 11/04/2023 09:08:59 11/04/2023 09:56:16 Candidal intertrigo 051972460 B37.2 [id number] Santy [address]MICHAEL [address] [facility] [place] [address] 04/20/2024 09:44:30 04/20/2024 10:28:22 Pain of left lower leg 2835562384 09956 M79.662 Pain due t o varicose veins of lower extremity 551921809 I83.819 Go to the Emergency Department immediatel [...] Fox Member ID Guarantor Name 04/20/2024 2 [facility] Ashtyn Smith [id number] Ashtyn Smith 04/20/2024 1 MEDICARE [place]: [employer] Ashtyn Coreas Fonde [id number] Ashtyn Fonde Notes Date Note Type Note Provider Name [...] symptoms. Christina Escobedo MD [address] [place], [address], [employer] 11/04/2023 10:01:10 04/20/2024 text/html Lower Leg UCRepo [...] affected body part. Santy Ace NP [address] [place], [address], [facility] 04/20/2024 10:27:04 OBGyn Episode No OBEpisode recorded.
[2025-08-28 08:31] LABS: Appearance Urine Hazy; Glucose Urine UA Negative (Negative); PH 6.0 (5.0-9.0); Specific Gravity - Urine >= 1.030 (1.005-1.025); UMIC TRIGGER UACC YES
[2025-08-28 08:43] LABS: MANUAL DIFF FLAG NO
[2025-08-28 08:51] LABS: Hematocrit 37.4 % (37.0-47.0); Hemoglobin 11.8 g/dl (12.0-16.0); Imm Gran Abs Auto 0.02 X10*3/uL (0.00-0.03); Imm Gran Pct Auto 0.4 % (0.0-0.4); Lymphocytes Absolute Auto 1.1 X10*3/uL (1.2-4.9); Mean Corpuscular HGB Conc 31.6 g/dl (31.0-35.0); Mean Corpuscular Hemoglobin 28.0 pg (27.0-33.0); Mean Corpuscular Volume 88.6 fL (80.0-98.0); NRBC Abs Auto 0.000 X10*3/uL (0.0-0.012); NRBC Pct Auto 0.0 /100WBC (0.0-0.2); Platelet Count 241 X10*3/uL (160-400); Red Blood Count 4.22 X10*6/uL (4.20-5.50); White Blood Count 5.0 X10*3/uL (4.8-10.8)
[2025-08-28 08:57] LABS: Alanine Aminotransferase 24 U/L (0-31); Albumin Level 4.1 g/dL (3.5-5.0); Alkaline Phosphatase 112 U/L (39-117); Anion Gap 12 (12-20); Aspartate Amino Transferase 28 U/L (5-31); Blood Urea Nitrogen 15 mg/dL (9-16); Calcium 9.4 mg/dL (8.4-10.2); Carbon Dioxide 26 mmol/L (22-29); Chloride 108 mmol/L (96-108); Creatinine Clr Calc Pharmacy 56.8; Estimated Glomerular Filt Rate > 60; Magnesium 2.1 mg/dL (1.6-2.6); Potassium 4.1 mmol/L (3.3-5.1); Sodium 142 mmol/L (135-145); Total Protein 6.9 g/dL (6.5-8.0)
[2025-08-28 09:55] VITALS: BP 152/56; PULSE 99; RESP 18; TEMP 36.9; O2SAT 95
== END 2025-08-28 09:57 | disposition home or self-care (01) ==
PROVIDERS: Registered Nurse Emergency; Emergency Provider Emergency Medicine Emergency Medical Services; PCP Internal Medicine
DX: R20.2 Paresthesia of skin (principal); M54.50 Low back pain, unspecified; I10 Essential (primary) hypertension; I48.91 Unspecified atrial fibrillation; K21.9 Gastro-esophageal reflux disease without esophagitis; Z79.899 Other long term (current) drug therapy
CPT/HCPCS: 36415; 80053; 81001; 83735; 85025; 99282; 99283

== ENCOUNTER 2025-09-13 13:56 | Outpatient (REF) | payer MEDICARE, OTHER, SELFPAY ==
--- NOTE | ~2025-09-13 | US_ITS ---
EXAMINATION: US RETROPERITONEAL COMPLETE (RENAL) CLINICAL INFORMATION: Urinary frequency. R35.0. COMPARISON: None available. TECHNIQUE: Real-time imaging of the kidneys and bladder. FINDINGS: RIGHT KIDNEY: 9 x 4 x 5 cm (SAG x AP x TRV). Normal echotexture. Renal cortical thickness is normal. No hydronephrosis. No solid or cystic lesion. LEFT KIDNEY: 9 x 4 x 4 cm (SAG x AP x TRV). Normal echotexture. Renal cortical thickness is normal. No hydronephrosis. No solid or cystic lesion. BLADDER: Fluid-filled. Bilateral ureteral jets are demonstrated. Prevoid bladder volume is 111 mL. Postvoid bladder volume is 22 mL. US/US retroperitoneal comp IMPRESSION: 22 cc retained urine in a post void image. No hydronephrosis or gross nephrolithiasis.. Electronically signed by: Lamont Elise MD 09/13/2025 02:42 PM [facility]
--- OUTSIDE RECORDS SUMMARY | 2025-09-13 22:43 | XMS_ITS | Encounter Summary ---
Author Organization [facility] Address [address] [place] [address] Care Team Providers Care English Composition Instructor Name Role Phone Edwige Cline MD Primary Care Provider [phone] Encounter Details Date Type Department Care Team (Late st Contact Info) Description 07/15/2025 Lab Requisition [facility] [address] [facility] [place] [address] Nadia Armendariz MD 299 [facility] [address] [place] [phone] Acute vaginitis Social History Tobacco Use Types [...] vaginalis Negative Negative 07/16/2025 1:23 PM EDT [facility] Gardnerella vaginalis Negative Negative 07/16/2025 1:23 PM EDT [facility] Becca Species Negative Negative 1:23 PM EDT [facility] Swab Vaginal structure / Unknown Non-blood Collection / Unknown 07/15/2025 3:00 PM EDT 07/15/2025 5:51 PM EDT us Nadia Armendariz MD LAB MICROBIOLOGY - GENER AL ORDERABLES Final Result [facility] [address] [place] [address], documented in this encounter Visit Diagnoses Diagnosis Acute vaginitis Unspecified vaginitis and vulvovaginitis documented in this encounter Care Teams English Composition Instructor Relationship Specialty Start Date End Date Edwige Cline MD [address] [place] [address] PCP - General Internal Medicine 05/02/15 documented as of this encounter
--- OUTSIDE RECORDS SUMMARY | 2025-09-13 22:43 | XMS_ITS | Patient Health Record ---
Author Organization [facility] [address] Address [address] [place] [address] Care Team Providers Care Landscape Laborer Name Role Phone DEBRA ANDI Primary Care Provider RICHIE AKINS Unavailable [phone] MONTANA AKINS Unavailable [phone] ALVAREZ HUYNH Unavailable [phone] RYAN HUGGINS Unavailable [phone] Allergies Allergen (clinical drug ingredient) Drug/Non Drug Allergy documented on EMR Reaction Allergy Type Onset Date Status benzocaine (uncoded) Unknown Allergy Active pcn (uncoded) Unknown Allergy Active Results Component Value Reference Range Flag Notes Comp. Metabolic Panel (14)-3 [id number] Reviewed date:10/05/2024 09:57:53 AM Interpretation: Performing Lab:[facility], [address] [place] [address], [place], Phone - [phone], Director - Allan Notes/Report: Glucose 96 70-99 [...] (SGPT) 12 0-32 IU/L CBC With Differential/Platel et-[id number] Reviewed date:10/05/2024 09:57:53 AM Interpretation: Performing Lab:[facility] [place], [address] [facility], Phone - [phone], Director - MDRavendry Notes/Report: WBC 4.9 3.4-10.8 x10E3/uL RBC 3.95 [...] Immature Grans (Abs) 0.0 0.0-0.1 x10E3/uL Urinalysis, Routine-[id number] Reviewed date:10/05/2024 10:02:49 AM Interpretation: Performing Lab:[facility] [place], [address] , [place], Phone - [phone], Director - Angusy Notes/Report: Specific [place] 1.024 1.005-1.030 pH 5.5 5.0-7.5 Urine-Color Yellow [...] Calcium Oxalate N/A Bacteria Few None seen/Few CT LOWER EXTREMITY W CONTRAS T BILAT (Not yet reviewed by provider) Interpretation: Performing Lab: Notes/Report: See Note [facility], a member of [place] [employer] EXAMINATION: CT LOWER EXTREMITY WITH CONTRAST, BILATERAL CLINICAL INFORMATION: Left leg pain. Bilateral leg swelling and pain reported by patient. COMPARISON: None TECHNIQUE: Multidetector CT. Examination of the extremity. Examination was performed from the mid pelvis through the foot of both lower extremities. Examination of the extremity following the IV administration of nonionic contrast. Reformatting in the coronal and sagittal planes. 3-D postprocessing was performed. Blueprint protocol was not utilized DLP: 1047 mGy-cm Dose optimization was performed including the use of low-dose iterative reconstruction technique with automatic exposure control based on patient size. Type of contrast: ISOVUE 370 Volume of IV contrast: 90 mL Volume of contrast discarded: 0 mL FINDINGS: ALIGNMENT: No subluxation or dislocation. ACUTE FRACTURE: No acute fracture. FOCAL LESION: No suspicious focal lesion. PERIOSTEAL: No periosteal reaction. No bone destruction. JOINTS: There is narrowing of the femoral acetabular joint and tibiofemoral joints bilaterally. This is greater involving the left knee than right. This favors the medial compartment. There is a small amount of joint fluid around the right knee. SOFT TISSUES: There is no suspicious mass or collection. The muscles appear to be of normal attenuation. No subcutaneous stranding. VASCULAR: There is no aneurysm. There is no definite deep venous thrombosis. No suspicious pelvic mass or collection demonstrated IMPRESSION: No suspicious mass or collection. There is osteoarthritis. No skin thickening or subcutaneous fat stranding. There is some joint fluid in the right suprapatellar bursa Preoperative planning Blueprint protocol was not utilized -------- FINAL REPORT -------- Dictated By: Santi Coffman Dictated Date: 09/07/2025 13:06 ET Assigned Physician: Santi Coffman Reviewed and Electronically Signed By: Santi Coffman Signed Date: 09/07/2025 13:15 ET Workstation ID: [id number] Transcribed By: Self Edit Transcribed Date: 09/07/2025 13:06 ET Reason For Referral Reason Frequency with [facility] [place] 1 Frequency of urinati on (R35.0) Referral Organization [facility] Referring Provider First Name MONTANA Referring Provider Last Name TASHI Referring Provider Speciality Internal edicine Referred Provider Specialty Urology General Notes [facility], [address]; [facility] , P [phone], F [phone] Clinical Notes Susanne Gupta 2024 12:29:20 PM >Referral with note and labs sent to [facility]. Paper copy mailed to pt for record. TY., Chikis Crespo 12/09/2024 02:27:59 PM > Scheduled for 02/25 at 11 am. Pt aware Referral Priority Routine Reason Evaluate & Treat Diagnosis 1 Back pain, unspecifi ed back location, unspecified back pain laterality, unspecified chronicity (M54.9) Referral Organization [facility] Referring Provider First Name ANDI Referring Provider Last Name DEBRA Referring Provider Speciality Internal edicine Referred Provider Specialty Physical The rapist General Notes Racquel Oneill 0 06/08/2025 11:45:29 AM > Referral to [facility] and faxed, p. [phone], f. [phone] Referral Priority Routine Diagnosis 1 Pain in right knee ( M25.561) Diagnosis 2 Other chronic pain ( G89.29) Diagnosis 3 Pain in left knee (M 25.562) Referral Organization [facility] Referring Provider First Name ANDI Referring Provider Last Name DEBRA Referring Provider Speciality Internal edicine Referred Provider Specialty Physical The rapist General Notes MAY ESCAMILLA 0 06/30/2025 10:47:00 AM >Referral to [facility] and faxed, p. [phone], f. [phone] Referral Priority Routine Medications Medication SIG (Take, Route, Frequency, Duration) Notes Start Date End Date Status predniSONE 10 MG Tablet 4 tab x [...] 06/08/2025 Active Pravastatin Sodium 40 MG Tablet TAKE 1 TABLET BY MOUTH EVERY DAY; Duration: 90 Active amLODIPine Besylate 5 MG Tablet TAKE 1 TABLET BY MOUTH EVERY DAY FOR 90 DAYS Orally Once a day; Duration: 90 days Active Gabapentin 300 MG Capsule 1 capsule Oral ly twice a day; Duration: 14 days 08/18/2025 Active Meclizine HCl 25 MG Tablet 1 [...] Status Risk Notes Problem Iron deficiency anemia (18718417) Iron deficiency anemia, unspecified (D50.9) Active confirmed Problem Vitamin B>12< deficiency anaemia (64967240) Vitamin B12 deficiency anemia, unspecified (D51.9) Active confirmed Problem Vitamin D deficiency (22985738) Vitamin D deficiency, unspecified (E55.9) Active confirmed Problem Obesity (507580181) Obesity, unspecified (E66.9) Active confirmed Problem Hyperlipidemia (86542402) Hyperlipidemia, unspecified (E78.5) Active confirmed Problem Insomnia (764717106) Insomnia, unspecified (G47.00) Active confirmed Problem Chronic pain (70625069) Other chronic pain (G89.29) Active confirmed Problem Benign paroxysmal positional vertigo (029542998) Benign paroxysmal vertigo, bilateral (H81.13) Active confirmed Problem Essential hypertension (57228165) Essential (primary) hypertension (I10) Active confirmed Problem Atherosclerotic heart disease of [place] coronary artery without angina pectoris (375325292083730) Atherosclerotic heart disease of [place] coronary artery without angina pectoris (I25.10) Active confirmed Problem Right carotid artery stenosis (106771983204596) Occlusion and stenosis of right carotid artery (I65.21) Active confirmed Problem Atopic dermatitis (33859811) Atopic dermatitis, unspecified (L20.9) Active confirmed Problem 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 Problem Adult health examination (882272090) Encounter for general adult medical examination without abnormal findings (Z00.00) Active confirmed Problem Obese class II (980509219684446) Body mass index (BMI) 35.0-35.9, adult (Z68.35) Active confirmed Problem Prediabetes (137253935) Prediabetes (R73.03) Active confirmed Problem Body mass index 30.00 to 34.99 (674955278371560) Body mass index (BMI) of 34.0-34.9 in adult (Z68.34) Active confirmed Problem Backache (727246638) Back pain, unspecified back location, unspecified back pain laterality, unspecified chronicity (M54.9) Active confirmed Problem Anxiety (72893130) Anxiety (F41.9) Active confi rmed Problem Adult health examination (078305016) Adult general medical exam (Z00.00) Active confirmed Problem Atrial fibrillation (51182331) Atrial fibrillation, unspecified type (I48.91) Active confirmed Problem Arthritis (9202871) Arthritis (M19.90) Active c onfirmed Problem Insomnia (974548480) Insomnia, unspecified type (G47.00) Active confirmed Problem Vitamin D deficiency (09858060) Vitamin D deficiency (E55.9) Active confirmed Problem Arthralgia of the pelvic region and thigh (552737136) Left hip pain (M25.552) Active confirmed Problem Pain in limb (86798421) Leg pain, left (M79.605) Active confirmed Problem Sciatica (71915238) Sciatic leg pain (M54.30) Active confirmed Problem Obese class II (209212503913648) BMI 36.0-36.9,adult (Z68.36) Active confirmed Problem Vitamin B>12< deficiency anaemia (19989835) Anemia due to vitamin B12 deficiency, unspecified B12 deficiency type (D51.9) Active confirmed Problem Gastroesophageal reflux disease (943459173) GERD without esophagitis (K21.9) Active confirmed Problem Pain in limb (87971559) Pain in left hanks (M79.662) Active confirmed Problem Hyperlipidemia (74610402) Hyperlipidemia (E78.5) Active confirmed Problem Pain in limb (73074186) Leg pain, right (M79.604) Active confirmed Problem [...] 08/10/2025 Encounters Encounter Location Date Provider Diagnosis [facility] [address] [place] [address] 10/05/2024 [facility] Adult general medica l exam Z00.00 ; Hyperlipidemia, unspecified E78.5 and Essential (primary) hypertension I10 [facility] [address] [place] [address] 03/15/2025 ANDI NASSARR Atrial fibrillation, unspecified type I48.91 ; Left [...] findings Z01.[address] [facility] [address] [place], [place] 06/08/2025 ANDI DEBRA Left leg swelling M7 9.89 ; Lower thoracic back pain M54.6 ; Hyperlipidemia, unspecified E78.5 ; Anxiety F41.9 ; Obesity, unspecified E66.9 ; Arthritis M19.90 ; 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 ; Vitamin D deficiency E55.9 and Encounter for examination of blood pressure without abnormal findings Z01.[address] [facility] [address] [place], [place] 08/10/2025 ANDI DEBRA Left leg swelling M7 9.89 ; Lower thoracic back pain M54.6 ; Hyperlipidemia, unspecified E78.5 ; Anxiety F41.9 ; Obesity, unspecified E66.9 ; Arthritis M19.90 ; 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 ; Vitamin D deficiency E55.9 and Encounter for examination of blood pressure without abnormal findings Z01.[address] [facility] [address] [place], [place] 08/18/2025 ANDI DEBRA Left leg swelling M7 9.89 ; Lower thoracic back pain M54.6 ; Hyperlipidemia, unspecified E78.5 ; Anxiety F41.9 ; Obesity, unspecified E66.9 ; Arthritis M19.90 ; 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 ; Vitamin D deficiency E55.9 and Encounter for examination of blood pressure without abnormal findings Z01.[address] [place], [place] 09/15/2024 ANDI DEBRA [facility] [address] [place], [place] 10/05/2024 MONTANA AKINS [facility] [address] [place], [place] 10/12/2024 RYAN HUGGINS [facility] [address] [place] [address] 11/10/2024 MONTANA AKINS [facility] [address] [place] [address] 12/03/2024 RICHIE AKINS [facility] [address] [place] [address] 12/08/2024 RICHIE AKINS [facility] [address] [place] [address] 02/09/2025 MONTANA AKINS [facility] [address] [place] [address] 04/16/2025 ANDI DEBRA [facility] [address] [place], [place] 05/28/2025 ANDI DEBRA [facility] [address] [place], [place] 05/31/2025 ANDI DEBRA [facility] [address] [place], [place] 06/03/2025 ALVAREZ BUTLERA [facility] [address] [place] [address] 06/08/2025 ANDI DEBRA [facility] [address] [place] [address] 06/30/2025 ANDI DEBRA [facility] [address] [place], [place] 07/07/2025 ANDI DEBRA [facility] [address] [place], [place] 07/26/2025 MONTANA AKINS Left leg swelling M7 9.89 [facility] [address] [place] [address] 07/26/2025 ANDI DEBRA [facility] [address] [place], [place] 08/09/2025 ANDI DEBRA [facility] [address] [place] [address] 08/18/2025 ANDI DEBRA [facility] [address] [place] [address] 08/19/2025 MONTANA AKINS Pain in leg, unspeci fied M79.[address] [facility] [address] [place] [address] 08/19/2025 ANDI DEBRA Aching leg syndrome of left lower extremity M79.605 and Aching leg syndrome of right lower extremity M79.[address] [facility] [address] [place] [address] 08/25/2025 ANDI RICHARDSON Aching leg syndrome of right lower extremity M79.604 and Aching leg syndrome of left lower extremity M79.605 [facility] [address] [facility] [address] [place] [address] 08/31/2025 ANDI NASSARR [facility] [address] [place] [address] 09/06/2025 ANDI NASSARR Assessments Encounter Date Diagnosis (ICD Code) Assessment Notes Treatment Notes Treatment Clinical Notes Section Notes 10/05/2024 Adult general medical exam (ICD-10 - [...] log exercise and discussed fitness Apps like [employer]antom which can help keep log off calories [...] and hemoglobin A1c testing might be appropriate. 07/26/2025 Left leg swelling (ICD-10 - M79.89) [...] relief in the past. Patient recently completed [facility] physical therapy with minimal relief as well, [...] back pain: Patient recently was seen by [facility] physical therapy for back pain. Patient admits [...] changes. #Right knee pain: Continue following with [facility] for injections [...] Dictation was accomplished with the use of [employer] voice recognition software, which is prone to [...] back pain: Patient recently was seen by [facility] physical therapy for back pain. Patient admits [...] changes. #Right knee pain: Continue following with [facility] for injections [...] Dictation was accomplished with the use of [employer] voice recognition software, which is prone to medical misidentifications and grammatical errors. This are unintentional and the practitioner does try to identify and correct these, but some could still be present. Please do not hesitate to contact practitioner for clarification. 08/19/2025 Aching leg syndrome of left lower extremity (ICD-10 - M79.605) 03/15/2025 Atrial fibrillation, unspecified type (ICD-10 - [...] and ligamentum degenerative changes. Patient referred to [facility] at this time as she may benefit from a repeat MRI or cortisone injections. #Bilateral lower leg swelling: Resolved.. Had a recent benign US #Right knee pain: Continue following with [facility] for injections #Atrial fibrillation: Last cardiology note [...] Dictation was accomplished with the use of [employer] voice recognition software, which is prone to medical misidentifications and grammatical errors. This are unintentional and the practitioner does try to identify and correct these, but some could still be present. Please do not hesitate to contact practitioner for clarification. 08/25/2025 Aching leg syndrome of right lower extremity (ICD-10 - M79.604) 08/19/2025 Pain in leg, unspecified (ICD-10 - M79.606) 06/08/2025 Left leg swelling (ICD-10 - M79.89) [...] Additionally placing physical therapy referral to [facility] as patient states that as of now she is living with her partner in [place]. #Pancreatic cyst: She states that she is [...] changes. #Right knee pain: Continue following with [facility] for injections [...] Dictation was accomplished with the use of [employer] voice recognition software, which is prone to [...] Additionally placing physical therapy referral to [facility] as patient states that as of now she is living with her partner in [place]. #Pancreatic cyst: She states that she is [...] changes. #Right knee pain: Continue following with [facility] for injections [...] Dictation was accomplished with the use of [employer] voice recognition software, which is prone to [...] Additionally placing physical therapy referral to [facility] as patient states that as of now she is living with her partner in [place]. #Pancreatic cyst: She states that she is [...] changes. #Right knee pain: Continue following with [facility] for injections [...] Dictation was accomplished with the use of [employer] voice recognition software, which is prone to medical misidentifications and grammatical errors. This are unintentional and the practitioner does try to identify and correct these, but some could still be present. Please do not hesitate to contact practitioner for clarification. 08/25/2025 Aching leg syndrome of left lower extremity (ICD-10 - M79.605) 03/15/2025 Left leg swelling (ICD-10 - M79.89) [...] and ligamentum degenerative changes. Patient referred to [facility] at this time as she may benefit from a repeat MRI or cortisone injections. #Bilateral lower leg swelling: Resolved.. Had a recent benign US #Right knee pain: Continue following with [facility] for injections #Atrial fibrillation: [...] Dictation was accomplished with the use of [employer] voice recognition software, which is prone to [...] and ligamentum degenerative changes. Patient referred to [facility] at this time as she may benefit from a repeat MRI or cortisone injections. #Bilateral lower leg swelling: Resolved.. Had a recent benign US #Right knee pain: Continue following with [facility] for injections #Atrial fibrillation: [...] Dictation was accomplished with the use of [employer] voice recognition software, which is prone to medical misidentifications and grammatical errors. This are unintentional and the practitioner does try to identify and correct these, but some could still be present. Please do not hesitate to contact practitioner for clarification. 08/19/2025 Aching leg syndrome of right lower extremity (ICD-10 - M79.604) 08/18/2025 Lower thoracic back pain (ICD-10 - [...] back pain: Patient recently was seen by [facility] therapy for back pain. Patient admits [...] changes. #Right knee pain: Continue following with [facility] for injections [...] Dictation was accomplished with the use of [employer] voice recognition software, which is prone to [...] relief in the past. Patient recently completed [facility] physical therapy with minimal relief as well, [...] back pain: Patient recently was seen by [facility] physical therapy for back pain. Patient admits [...] changes. #Right knee pain: Continue following with [facility] for injections [...] Dictation was accomplished with the use of [employer] voice recognition software, which is prone to [...] back pain: Patient recently was seen by [facility] physical therapy for back pain. Patient admits [...] changes. #Right knee pain: Continue following with [facility] for injections [...] Dictation was accomplished with the use of [employer] voice recognition software, which is prone to [...] log exercise and discussed fitness Apps like [employer] which can help keep log off calories [...] and hemoglobin A1c testing might be appropriate. 10/05/2024 Essential (primary) hypertension (ICD-10 - I10) [...] log exercise and discussed fitness Apps like [employer] which can help keep log off calories [...] and hemoglobin A1c testing might be appropriate. 08/10/2025 Hyperlipidemia, unspecified (ICD-10 - E78.5) Nancy [...] relief in the past. Patient recently completed [facility] physical therapy with minimal relief as well, [...] back pain: Patient recently was seen by [facility] therapy for back pain. Patient admits [...] changes. #Right knee pain: Continue following with [facility] for injections [...] Dictation was accomplished with the use of [employer] voice recognition software, which is prone to [...] back pain: Patient recently was seen by [facility] physical therapy for back pain. Patient admits [...] changes. #Right knee pain: Continue following with [facility] for injections [...] Dictation was accomplished with the use of [employer] voice recognition software, which is prone to [...] and ligamentum degenerative changes. Patient referred to [facility] at this time as she may benefit from a repeat MRI or cortisone injections. #Bilateral lower leg swelling: Resolved.. Had a recent benign US #Right knee pain: Continue following with [facility] [employer] for injections #Atrial fibrillation: Last cardiology note [...] Dictation was accomplished with the use of [employer] voice recognition software, which is prone to [...] Additionally placing physical therapy referral to [facility] as patient states that as of now she is living with her partner in [place]. #Pancreatic cyst: She states that she is [...] changes. #Right knee pain: Continue following with [facility] for injections [...] Dictation was accomplished with the use of [employer] voice recognition software, which is prone to [...] Additionally placing physical therapy referral to [facility] as patient states that as of now she is living with her partner in [place]. #Pancreatic cyst: She states that she is [...] changes. #Right knee pain: Continue following with [facility] for injections [...] Dictation was accomplished with the use of [employer] voice recognition software, which is prone to [...] and ligamentum degenerative changes. Patient referred to [facility] at this time as she may benefit from a repeat MRI or cortisone injections. #Bilateral lower leg swelling: Resolved.. Had a recent benign US #Right knee pain: Continue following with [facility] for injections #Atrial fibrillation: Last cardiology note [...] Dictation was accomplished with the use of [employer] voice recognition software, which is prone to [...] back pain: Patient recently was seen by [facility] physical therapy for back pain. Patient admits [...] changes. #Right knee pain: Continue following with [facility] for injections [...] Dictation was accomplished with the use of [employer] voice recognition software, which is prone to [...] relief in the past. Patient recently completed [facility] physical therapy with minimal relief as well, [...] back pain: Patient recently was seen by [facility] physical therapy for back pain. Patient admits [...] changes. #Right knee pain: Continue following with [facility] for injections [...] Dictation was accomplished with the use of [employer] voice recognition software, which is prone to [...] relief in the past. Patient recently completed [facility] physical therapy with minimal relief as well, [...] back pain: Patient recently was seen by [facility] physical therapy for back pain. Patient admits [...] changes. #Right knee pain: Continue following with [facility] for injections [...] Dictation was accomplished with the use of [employer] voice recognition software, which is prone to [...] back pain: Patient recently was seen by [facility] physical therapy for back pain. Patient admits [...] changes. #Right knee pain: Continue following with [facility] for injections [...] Dictation was accomplished with the use of [employer] voice recognition software, which is prone to [...] and ligamentum degenerative changes. Patient referred to [facility] at this time as she may benefit from a repeat MRI or cortisone injections. #Bilateral lower leg swelling: Resolved.. Had a recent benign US #Right knee pain: Continue following with [facility] [employer] for injections #Atrial fibrillation: Last cardiology note [...] Dictation was accomplished with the use of [employer] voice recognition software, which is prone to [...] Additionally placing physical therapy referral to [facility] as patient states that as of now she is living with her partner in [place]. #Pancreatic cyst: She states that she is [...] changes. #Right knee pain: Continue following with [facility] for injections [...] Dictation was accomplished with the use of [employer] voice recognition software, which is prone to [...] Additionally placing physical therapy referral to [facility] as patient states that as of now she is living with her partner in [place]. #Pancreatic cyst: She states that she is [...] changes. #Right knee pain: Continue following with [facility] for injections [...] Dictation was accomplished with the use of [employer] voice recognition software, which is prone to [...] back pain: Patient recently was seen by [facility] physical therapy for back pain. Patient admits [...] changes. #Right knee pain: Continue following with [facility] for injections [...] Dictation was accomplished with the use of [employer] voice recognition software, which is prone to [...] and ligamentum degenerative changes. Patient referred to [facility] at this time as she may benefit from a repeat MRI or cortisone injections. #Bilateral lower leg swelling: Resolved.. Had a recent benign US #Right knee pain: Continue following with [facility] for injections [...] Dictation was accomplished with the use of [employer] voice recognition software, which is prone to [...] relief in the past. Patient recently completed [facility] physical therapy with minimal relief as well, patient admits that she would like to have a CT scan of her bilateral lower extremities with contrast for further evaluation.. Will reconvene this at follow-up...Patient may benefit from additional cortisone injection #Degenerative changes of left sacroiliac joint: Noted on x-ray on 05/05/2025 #Weight gain: Patient would like to look into [place] at this time, will reconvene at follow-up #Lower back pain: Patient recently was seen by [facility] physical therapy for back pain. Patient admits [...] changes. #Right knee pain: Continue following with [facility] for injections [...] Dictation was accomplished with the use of [employer] voice recognition software, which is prone to [...] relief in the past. Patient recently completed [facility] physical therapy with minimal relief as well, [...] back pain: Patient recently was seen by [facility] physical therapy for back pain. Patient admits [...] changes. #Right knee pain: Continue following with [facility] for injections PRN #Atrial [...] Dictation was accomplished with the use of [employer] voice recognition software, which is prone to [...] back pain: Patient recently was seen by [facility] physical therapy for back pain. Patient admits [...] changes. #Right knee pain: Continue following with [facility] for injections [...] Dictation was accomplished with the use of [employer] voice recognition software, which is prone to medical misidentifications and grammatical errors. This are unintentional and the practitioner does try to identify and correct these, but some could still be present. Please do not hesitate to contact practitioner for clarification. 03/15/2025 Arthritis (ICD-10 - M19.90) aNncy is a pleasant 80-year-old female with a [...] and ligamentum degenerative changes. Patient referred to [facility] at this time as she may benefit from a repeat MRI or cortisone injections. #Bilateral lower leg swelling: Resolved.. Had a recent benign US #Right knee pain: Continue following with [facility] for injections [...] Dictation was accomplished with the use of [employer] voice recognition software, which is prone to [...] Additionally placing physical therapy referral to [facility] as patient states that as of now she is living with her partner in [place]. #Pancreatic cyst: She states that she is [...] changes. #Right knee pain: Continue following with [facility] for injections [...] Dictation was accomplished with the use of [employer] voice recognition software, which is prone to [...] Additionally placing physical therapy referral to [facility] as patient states that as of now she is living with her partner in [place]. #Pancreatic cyst: She states that she is [...] changes. #Right knee pain: Continue following with [facility] for injections [...] Dictation was accomplished with the use of [employer] voice recognition software, which is prone to [...] and ligamentum degenerative changes. Patient referred to [facility] at this time as she may benefit from a repeat MRI or cortisone injections. #Bilateral lower leg swelling: Resolved.. Had a recent benign US #Right knee pain: Continue following with [facility] for injections #Atrial fibrillation: Last cardiology note [...] Dictation was accomplished with the use of [employer] voice recognition software, which is prone to [...] back pain: Patient recently was seen by [facility] physical therapy for back pain. Patient admits [...] changes. #Right knee pain: Continue following with [facility] for injections [...] Dictation was accomplished with the use of [employer] voice recognition software, which is prone to [...] relief in the past. Patient recently completed [facility] physical therapy with minimal relief as well, [...] back pain: Patient recently was seen by [facility] physical therapy for back pain. Patient admits [...] changes. #Right knee pain: Continue following with [facility] for injections [...] Dictation was accomplished with the use of [employer] voice recognition software, which is prone to [...] relief in the past. Patient recently completed [facility] physical therapy with minimal relief as well, [...] back pain: Patient recently was seen by [facility] physical therapy for back pain. Patient admits [...] changes. #Right knee pain: Continue following with [facility] for injections [...] Dictation was accomplished with the use of [employer] voice recognition software, which is prone to [...] and ligamentum degenerative changes. Patient referred to [facility] at this time as she may benefit from a repeat MRI or cortisone injections. #Bilateral lower leg swelling: Resolved.. Had a recent benign US #Right knee pain: Continue following with [facility] for injections #Atrial fibrillation: Last cardiology note [...] Dictation was accomplished with the use of [employer] voice recognition software, which is prone to [...] and ligamentum degenerative changes. Patient referred to [facility] at this time as she may benefit from a repeat MRI or cortisone injections. #Bilateral lower leg swelling: Resolved.. Had a recent benign US #Right knee pain: Continue following with [facility] for injections #Atrial fibrillation: Last cardiology note [...] Dictation was accomplished with the use of [employer] voice recognition software, which is prone to [...] COMPREHENSIVE METABOLIC PANEL 10/30/2018 COMPREHENSIVE METABOLIC PANEL 10/13/2018 COMPREHENSIVE METABOLIC PANEL 11/28/2020 HEMOGLOBIN A1C 10/30/2018 HEMOGLOBIN A1C 10/13/2018 INSULIN [...] LIPID PANEL, STANDARD 10/05/2024 LIPID PANEL, STANDARD 06/08/2025 LIPID PANEL, STANDARD 03/25/2023 LIPID PANEL, STANDARD 12/20/2021 LIPID PANEL, STANDARD 03/15/2025 LIPID PANEL, STANDARD 02/17/2024 COMPREHENSIVE METABOLIC PANEL 02/17/2024 COMPREHENSIVE METABOLIC PANEL 03/25/2023 COMPREHENSIVE METABOLIC PANEL 12/20/2021 COMPREHENSIVE METABOLIC PANEL 06/08/2025 COMPREHENSIVE METABOLIC PANEL 10/05/2024 COMPREHENSIVE METABOLIC PANEL 03/15/2025 CBC (INCLUDES DIFF/PLT) 03/15/2025 CBC (INCLUDES DIFF/PLT) 10/05/2024 CBC (INCLUDES DIFF/PLT) 06/08/2025 CBC (INCLUDES DIFF/PLT) 12/20/2021 CBC (INCLUDES DIFF/PLT) 03/25/2023 CBC (INCLUDES DIFF/PLT) 02/17/2024 URINALYSIS, COMPLETE 02/17/2024 URINALYSIS, COMPLETE 03/25/2023 URINALYSIS, COMPLETE 10/05/2024 URINALYSIS, COMPLETE 03/15/2025 HEMOGLOBIN A1c 03/25/2023 INSULIN 03/25/2023 INSULIN 12/20/2021 VITAMIN B12 06/08/2025 VITAMIN B12 03/15/2025 VITAMIN D,25-OH,TOTAL,IA 03/15/2025 VITAMIN D,25-OH,TOTAL,IA 06/08/2025 VITAMIN D,25-OH,TOTAL,IA 12/20/2021 VITAMIN D,25-OH,TOTAL,IA 03/25/2023 US Abdomen 04/22/2020 US Carotid Duplex Bilat Complt US Duplex Venous Study Bilat 09/09/2024 TSH+T4F+T3Free 03/15/2025 TSH+T3+Free T4+T3 Free 06/08/2025 CT LOWER EXTREMITY W CONTRAST BILAT 08/08 Next Appt Details Provider Name:ANDI DEBRA, 01:00:00 PM, [address], [place], [address], Provider Name:ANDI NASSARR, 02:00:00 PM, [address], [place], [address], Insurance Providers Payer Name Payer Address Payer Phone Subscriber Number Group Number Insured Name Patient Relationship to Insured Coverage Start Date Coverage End Date Medicare Part B [id number] [address] [place] [address] [id number] NANCY REYNOLDS Self - patient is the insured 2 [facility] [address] [place] [id number] NANCY REYNOLDS Self - patient is the insured Medical (General) History Medical History History ICD Code anemia anxiety Atrial fibrillation hypertension insomnia Anxiety F41.9 Hyperlipidemia E78.5 Gastro-esophageal reflux disease without esophagitis K21.9 Arthritis M19.90 Surgical History Surgery Date(Month/Year) cholecystectomy lasik hysterectomy colonoscopy 3 years cardiac ablation Hospitalization History Reason Date(Month/Year) SAME SURGICAL
--- OUTSIDE RECORDS SUMMARY | 2025-09-13 22:43 | XMS_ITS | Clinical Summary ---
Author Organization [facility] Address [address] [place] [address] Phone Care Team Providers Care Director Of Land Acquisition Name Role Phone Edwige Cline MD Primary Care Provider [phone] Encounters Date Type Department Care Team Description 08/26/2025 10:57 AM EST - 08/26/2025 11:59 PM EST Hospital Encounter [facility] CT Scan [address] [place] [address] Pain in leg, unspecified Discharge Disposition: Home or Self Care 07/15/2025 Lab Requisition [facility] - Main Lab [address] [facility] [place] [address] Nadia Armendariz MD Acute vaginitis [...] Procedure Name Priority Date/Time Associated Diagnosis Comments CT LOWER EXTREMITY W CONTRAST BILAT Routine 08/26/2025 11:36 AM EST Pain in leg, unspecified VAGINITIS PATHOGENS BY PCR Routine 07/15/2025 3:00 PM EDT Acute vaginitis from Last 3 Months Results * CT Lower Extremity w Contrast bilat (08/26/2025 11:36 AM EST) Anatomical Region Laterality Modality Lower Extremities Bilateral Computed Tomog drea 09/07/2025 1:06 PM EST Impressions 09/07/2025 1:15 PM EST No suspicious mass or collection. There is osteoarthritis. No skin thickening or subcutaneous fat stranding. There is some joint fluid in the right suprapatellar bursa Preoperative planning Blueprint protocol was not utilized -------- FINAL REPORT -------- Dictated By: Santi Coffman Dictated Date: 09/07/2025 13:06 ET Assigned Physician: Santi Coffman Reviewed and Electronically Signed By: Santi Coffman Signed Date: 09/07/2025 13:15 ET Workstation ID: [id number] Transcribed By: Self Edit Transcribed Date: 09/07/2025 13:06 ET Narrative 09/07/2025 1:15 PM EST EXAMINATION: CT LOWER EXTREMITY WITH CONTRAST, BILATERAL [...] No suspicious pelvic mass or collection demonstrated Procedure Note Santi Coffman MD - 09/07/2025 EXAMINATION: CT LOWER EXTREMITY WITH CONTRAST, BILATERAL CLINICAL INFORMATION: Left leg pain. Bilateral leg swelling and pain reported by patient. COMPARISON: None TECHNIQUE: Multidetector CT. Examination of the extremity. Examination was performedfrom the mid pelvis through the foot of both lower extremities. Examination of the extremity following the IV administration of nonioniccontrast. Reformatting in the coronal and sagittal planes. 3-D postprocessing was performed. Blueprint protocol was not utilized DLP: 1047 mGy-cm Dose optimization was performed including the use of low-dose iterativereconstruction technique with automatic exposure control based on patientsize. Type of contrast: ISOVUE 370 Volume of IV contrast: 90 mL Volume of contrast discarded: 0 mL FINDINGS: ALIGNMENT: No subluxation or dislocation. ACUTE FRACTURE: No acute fracture. FOCAL LESION: No suspicious focal lesion. PERIOSTEAL: No periosteal reaction. No bone destruction. JOINTS: There is narrowing of the femoral acetabular joint andtibiofemoral joints bilaterally. This is greater involving the left kneethan right. This favors the medial compartment. There is a small amount of joint fluid around the right knee. SOFT TISSUES: There is no suspicious mass or collection. The musclesappear to be of normal attenuation. No subcutaneous stranding. VASCULAR: There is no aneurysm. There is no definite deep venousthrombosis. No suspicious pelvic mass or collection demonstrated IMPRESSION: No suspicious mass or collection. There is osteoarthritis. No skin thickening or subcutaneous fat stranding. There is some jointfluid in the right suprapatellar bursa Preoperative planning Blueprint protocol was not utilized -------- FINAL REPORT -------- Dictated By: Santi Coffman Dictated Date: 09/07/2025 13:06 ET Assigned Physician: Santi Coffman Reviewed and Electronically Signed By: Santi Coffman Signed Date: 09/07/2025 13:15 ET Workstation ID: [id number] Transcribed By: Self Edit Transcribed Date: 09/07/2025 13:06 ET Moshe Guaman MD [facility] [place]ED[place] Final Result * Vaginitis pathogens molecular study (07/15/2025 3:00 PM EDT) Trichomonas vaginalis Negative Negative 07/16/2025 1:23 PM EDT [facility] Gardnerella vaginalis Negative Negative 07/16/2025 1:23 PM EDT [facility] Becca Species Negative Negative 1:23 PM EDT [facility] Swab Vaginal structure / Unknown Non-blood Collection / Unknown 07/15/2025 3:00 PM EDT 07/15/2025 5:51 PM EDT Nadia Armendariz MD LAB MICROBIOLOGY - GENER AL ORDERABLES Final Result [facility] [address] [place] [address], from Last 3 Months Insurance MEDICARE [facility] Care Teams Director Of Land Acquisition Relationship Specialty Start Date End Date Edwige Cline MD [address] [place] [address] PCP - General Internal Medicine 05/02/15
--- OUTSIDE RECORDS SUMMARY | 2025-09-13 22:43 | XMS_ITS | Data Portability ---
Author Organization [facility], [address] Address [address] [place] [address] Assessment No assessment recorded. Plan of Treatment [...] on warfarin for A-fib. 2023 024 [email or web address] [facility] (Hsg Scheduling), [address] [place], [address] 4 15:09:02 XR, tibia + fibula, 2 view 2023 024 [facility], [address] [place] [address], [address], 10:57:06 Medication Orders nystatin 100,000 unit/gram topical powder 2023 024 [id number], [address] [place], [address], 09:53:52 Patient TargetsNo targets recorded. Patient Instructions Encounter Date Encounter Id Patient Instructions Last Modified By Organization Details Last Modified Time 11/04/2023 [id number] candidiasis: car e instructions Not available 11/04/2023 09:54:44 Use the nystatin powder as directed. Keep affected area clean and dry. See printed instructions. Follow-up with your doctor in one week. Seek Emergency Medical evaluation for any worsening symptoms, particularly for increased pain, redness, swelling or for fever, chills, purulent drainage. [email or web address] Not available 11/04/2023 09:55:33 04/20/2024 [id number] leg pain: care instructions [email or web address] Not available 04/20/2024 10:05:20 Reason for Referral None Reported. Results Created Date Observation Date Name Description Value Unit Range Abnormal Flag Note LastModifiedBy Organization Detail LastModifiedTime 04/20/20 24 04/20/2024 XR, tibia + fibul a, 2 view No observ ation record ed. [email or web address] [address] [place], [place], [address], 04/20/2024 11:21:32 Result Notes None recorded. 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 821998825 Active 2023 Santy Ace NP [address] [place], [address], [place] - [facility] 4 10:20:48 [...] Name and Address Organization Details Recorded Time 394126 latex environme nt,medica tion Not available Not available Not available 11/04/2023 22456 91 RxNorm ALVAREZ SHELDONLance null, [place] - [facility] 4 09:31:08 504294 Product containin g penicilli n (product) medicatio n Not available Not available Not available 11/04/2023 12119 8001 SNOMED ALVAREZ RUIZ null, [place] - [facility] 4 09:30:48 827700 benzocain e medicatio n Not available Not [...] Updated DateTime 4 162.56 cm 34.3 kg/m2 83446.4 7 g 97 % 78 /min 18 [...] 4 162.56 cm 98.1 [degF] 32.4 kg/m2 58016.9 6 g 94 % 96 /min 9 18 /min 152/73 mm[Hg] Thalia Wilder PA - [facility] 09:49:37 Social History Question Answer Notes LastModified by [email or web address] Details LastModified Time Tobacco Smoking Status Never [...] Functional Status Question Answer Note LastModified by [email or web address] Details LastModified Time Do you use any [...] ICD10 Code Diagnosis IMO Codes Diagnosis Note [id number] Christina Escobedo [place] [address] [place] [address] 11/04/2023 09:08:59 11/04/2023 09:56:16 Candidal intertrigo 262282215 B37.2 [id number] Santy AceMICHAEL [address] [place] [address] 04/20/2024 09:44:30 04/20/2024 10:28:22 Pain of left lower leg 0900731359 27092 M79.662 Pain due t o varicose veins of lower extremity 984204465 I83.819 Go to the Emergency Department immediatel [...] Fox Member ID Guarantor Name 04/20/2024 2 [facility] Ashtyn Smith [id number] Ashtyn Smith 04/20/2024 1 MEDICARE [place]: [employer] Ashtyn Coreas Fonde [id number] Ashtyn Fonde Notes Date Note Type [...] symptoms. Christina Escobedo MD [address] [place], [address], [employer] 11/04/2023 10:01:10 04/20/2024 text/html Lower Leg UCRepo [...] affected body part. Santy Ace NP [address] [facility], [address], [facility] 04/20/2024 10:27:04 OBGyn Episode No OBEpisode recorded.
== END 2025-09-13 13:57 | disposition home or self-care (01) ==
LOC: HO.US 13:56
PROVIDERS: Visit Provider Urology
DX: R35.0 Frequency of micturition (principal)
CPT/HCPCS: 76770

== ENCOUNTER → 2025-09-13 13:58 | Outpatient (BNV) | payer MEDICARE, OTHER, SELFPAY | PROVIDERS: Visit Provider Radiology Diagnostic Radiology | DX: R35.0 Frequency of micturition (principal) | CPT/HCPCS: 76770 ==

== ENCOUNTER 2025-09-20 12:36 | Outpatient (AMB) | payer MEDICARE, OTHER, SELFPAY ==
[2025-09-20 13:02] VITALS: BMI 31.4
--- NOTE | 2025-09-20 13:02 | A.PHYSOV_ITS ---
Vital Signs 09/20/25 13:02 Height 5 ft 4 in Weight 183 lb BMI 31.4 Intake Visit Reasons: [facility] [place]- [place] after ED visit Intake Note: Patient is a 80 year old female here for new patient office visit. Patient is a follow up appointment from [facility] ED. Network Strategist Required: No Allergies Penicillins Allergy (Verified 09/20/25 15:19) Rash benzocaine Adverse Reaction (Verified 09/20/25 15:19) Agitated HPI Comments Details: History of Present Illness The patient is a 80 year old female presenting with bilateral knee pain and swelling. The knee issues began last summer after going up stairs, causing her knee to bother her and her legs to feel weird. She was sent to physical therapy by her doctor, which did not help. The patient's right knee is worse than her left. She has visible bumps on her legs, which appear more defined in the morning. Previously, she received a knee injection that provided relief for months. A prior knee x-ray about two years ago showed a tiny space, indicative of severe osteoarthritis. Associated history includes an episode of severe hip pain which was diagnosed as sciatica and resolved with a course of oral steroids. She reports leg swelling, but denies a high-sodium diet. She denies any history of diabetes and has no known allergies. The patient expresses a significant fear of needles stemming from childhood vaccinations. Pain Description - Location: Pain is primarily in the bilateral knees, with the right being worse than the left. - Onset: Knee issues began last summer, which she associates with going up stairs. - Associated symptoms: The knee pain is associated with leg swelling and visible bumps. - History: She previously experienced a wicked pain in her hip, diagnosed as sciatica, that radiated down her leg. - Relieving factors: A previous cortisone knee injection provided relief for several months. - Relieving factors: The prior sciatic pain resolved with oral steroids. Results - Imaging: - X-ray of left hip (July 10, 2024): Moderate osteoarthritis. - CT of lower extremity: Showed arthritis and fluid in the bursa. - Prior knee X-ray (approximately 2 years ago): Showed tiny space. [facility] Medical History Arthritis Gastro-esophageal reflux disease without esophagitis Hyperlipidemia Insomnia Hypertension Atrial fibrillation Anxiety Anemia Surgical History H/O colonoscopy History of hysterectomy Hx of LASIK Social History Alcohol intake: current Alcohol intake frequency: does not drink Patient Tobacco Use Status: Never used Tobacco Review of Systems Narrative Review of Systems - Musculoskeletal: Reports bilateral knee pain, worse on the right, and pain behind the knees. - Musculoskeletal: Reports a history of hip pain. - Extremities: Reports swelling and visible bumps on her legs. - Neurological: Reports a history of pain radiating down her leg consistent with sciatica. - Constitutional: Denies a high-sodium diet. - Allergic/Immunologic: Denies any known allergies. - Psychiatric: Reports a significant fear of needles. Physical Exam Exam Exam: Physical Exam Lumbar Spine: Examination of her lumbar spine, there is no visible swelling or deformity. She is nontender to palpation. Full range of motion. Special Tests: Lhermittes sign was negative Heel Toe walk is normal Left straight leg raise: Negative Right straight leg raise: Negative Special tests Sofia test is negative Ganslen's test is negative SI Joint compression test negative Venkat test negative Piriformis stretch is negative Lower Extremities: Examination of both knees, there is no palpable effusion. She is tender to the medial joint line. Popliteal fullness bilaterally. Full range of motion of her knee in flexion-extension. Her ligaments are intact. She does have pain with Jose testing medially. No calf pain. Neuro: Sensation: Intact to lower extremities bilaterally Strength L2 (Psoas): 5/5 on the left and 5/5 on the right. L3 (Quads): 5/5 on the left and 5/5 on the right. L4 (Ant tibialis): 5/5 on the left and 5/5 on the right. L5 (EHL) 5/5 on the left and 5/5 on the right. S1 (Gastroc): 5/5 on the left and 5/5 on the right. DTR L4: (Patellar) Left 2 Right 2 S1: (Achilles) Left 2 Right 2 Babinski Downgoing No pathologic clonus. No involuntary movement. Vital Signs: BMI result Body Mass Index 31.4 Office Procedures AMB Knee Injection AMB Knee Injection Procedure Details: Bilateral Knee injection: The risks, benefits and complications of the left knee injection were discussed with the patient including but not limited to increased serum glucose, infection, nerve pain, fat atrophy, pigment augmentation, bleeding and pain. All questions were answered to the patient's satisfaction. Verbal consent was obtained. The patient was eager to proceed. Using aseptic technique with Betadine, ethyl chloride was then used to desensitize the skin. Using a 22-gauge needle 40 mg of Kenalog and 3 mL 2% lidocaine were injected into the knee joint. A Band-Aid was applied. Patient tolerated the procedure well without immediate complication. Postinjection instructions were given. The procedure was repeated on the right. Knee Injection - : Bilateral All charges added?: Procedure code (CPT) selection complete Office Meds Kenalog 40 mg/mL suspension for injection Performing Provider: KARINA Soto [facility] Administered by: KARINA Soto on 09/20/25 13:34 Dose Route Admin Location Dispensed Lot Number Expiration Date [facility] Pl[employer] Welder 40 mg intra-articular 1 mL [id number] [employer] Total Dispensed Waste 1 mL 0 % lidocaine (PF) 20 mg/mL (2 %) injection solution Performing Provider: KARINA Soto Performing Location: [facility] Administered by: KARINA Soto on 09/20/25 13:34 Dose Route Admin Location Dispensed Lot Number Expiration Date [facility] Plastic Welder 60 mg intra-articular 5 mL [id number] [employer] Total Dispensed Waste 5 mL 40 % Results AMB Urinalysis, Automated UA Leukoctes 15 Alyse/uL Last Edit by Petrona King on 09/20/25 17:30 UA Nitrite Negative Last Edit by Petrona King on 09/20/25 17:30 UA Urobilinogen 0.2 mg/dL Last Edit by Petrona King on 09/20/25 17:30 UA Protein 15 mg/dL Last Edit by Petrona King on 09/20/25 17:30 UA pH 5.5 Last Edit by Petrona King on 09/20/25 17:30 UA Blood 0 Misael/uL Last Edit by Petrona King on 09/20/25 17:30 UA Specific [place] 1.030 Last Edit by Petrona King on 09/20/25 17:30 UA Ketone Negative Last Edit by Petrona King on 09/20/25 17:30 UA Bilirubin 1 mg/dL Last Edit by Pertona King on 09/20/25 17:30 UA Glucose 0 mg/dL Last Edit by Petrona King on 09/20/25 17:30 Assessment & Plan Assessment & Plan (1) Bilateral primary osteoarthritis of knee: Code(s): M17.0 - Bilateral primary osteoarthritis of knee Category: Medical Plan Pain Management - Affect: The patient expresses significant fear and anxiety regarding needles and injections. - Analgesia: She reports prior good, though temporary, relief from a cortisone knee injection. - Analgesia: She received bilateral cortisone knee injections during the current visit. - Activities of Daily Living: Climbing stairs was noted as a potential trigger for her knee issues. - Aberrant Drug-Related Behaviors: No aberrant drug-related behaviors were discussed. Plan Patient was informed and verbally consented to the use of an ambient scribe for clinic note documentation during this visit. 1. Osteoarthritis Of Bilateral Knees The patient's bilateral knee pain is attributed to severe osteoarthritis, which is likely more advanced than she perceives and explains why prior cortisone injections had a limited duration of effect. The visible bumps on her legs are also considered a manifestation of her severe arthritis. After discussing risks and alternatives, bilateral knee cortisone injections were administered, starting with the more symptomatic right knee. She was advised to return for follow-up when the pain recurs; the injections can be repeated if they provide at least three months of relief. If conservative measures fail, the plan is to obtain an MRI for further evaluation and consider a referral to an orthopedic surgeon for a possible knee replacement. 2. Lower Extremity Edema The patient's leg swelling is thought to be unrelated to her joint pain and more likely due to fluid retention from sodium intake. She was advised to discuss this with her primary care physician, start a low-sodium diet, and use compression stockings. 3. Osteoarthritis Of The Hip Recent imaging shows moderate osteoarthritis of the hip, but this is considered less severe than her knee condition. No active intervention was planned for the hip pain during this visit. Discussion Notes I discussed with the patient that her primary issue is severe knee osteoarthritis, which is likely worse than she realizes and is the cause of her pain, swelling, and the bumps on her legs. We reviewed treatment options, including proceeding with cortisone injections today or obtaining an MRI of the knee for more detailed imaging. The patient consented to bilateral cortisone knee injections after a discussion of the risks, including infection, bleeding, and nerve damage. I advised her that the goal of the injections is to provide three to six months of pain relief, and they can be repeated if effective for at least three months. I explained that if conservative treatments like injections do not provide adequate, lasting relief, she will likely need to see an orthopedic surgeon to discuss knee replacement surgery. I also clarified that her leg swelling is likely unrelated to her arthritis and recommended she follow up with her primary care physician to manage it, suggesting a low-sodium diet and compression stockings as initial steps. Patient Instructions - You received a cortisone injection in both of your knees today to help with your arthritis pain. - To help with the swelling in your legs, try to follow a low-salt diet and consider using compression stockings. - Please talk to your primary care doctor about the leg swelling. - Please schedule a follow-up appointment with us when your knee pain starts to return. - We can repeat the knee injections if they provide pain relief for at least 3 months. - If the shots do not work well, the next step would be to get an MRI scan and see a bone surgeon for your knees. Orders: Orders AMB Knee Injection 09/20/25 M17.0 - Bilateral primary osteoarthritis of knee Coding Level of Care Code Tele New Pt Level 3 (90552) Diagnoses Bilateral primary osteoarthritis of knee M17.0 CPT Codes AMB Knee Injection - Hip/Bursa Injection - : Bilateral ([id number])
--- OUTSIDE RECORDS SUMMARY | 2025-09-20 18:14 | XMS_ITS | Encounter Summary ---
Author Organization [facility] Address [address] [place] [address] Care Team Providers Care Waybill Clerk Name Role Phone Edwige Cline MD Primary Care Provider [phone] Encounter Details Date Type Department Care Team (Late st Contact Info) Description 07/15/2025 Lab Requisition [facility] [address] [facility] [place] [address] Nadia Armendariz MD [address] [facility] [address] [place] [id number] Acute vaginitis Social History Tobacco Use Types [...] vaginalis Negative Negative 07/16/2025 1:23 PM EDT [facility] Gardnerella vaginalis Negative Negative 07/16/2025 1:23 PM EDT [facility] Becca Species Negative Negative 1:23 PM EDT [facility] Swab Vaginal structure / Unknown Non-blood Collection / Unknown 07/15/2025 3:00 PM EDT 07/15/2025 5:51 PM EDT us Nadia Armendariz MD LAB MICROBIOLOGY - GENER AL ORDERABLES Final Result [facility] [address] [place] [address], documented in this encounter Visit Diagnoses Diagnosis Acute vaginitis Unspecified vaginitis and vulvovaginitis documented in this encounter Care Teams Waybill Clerk Relationship Specialty Start Date End Date Edwige Cline MD [address] [place] [address] PCP - General Internal Medicine 05/02/15 documented as of this encounter
--- OUTSIDE RECORDS SUMMARY | 2025-09-20 18:16 | XMS_ITS | Clinical Summary ---
Author Organization [facility] Address [address] [place] [address] Phone Care Team Providers Care Frame Wirer Name Role Phone Edwige Cline MD Primary Care Provider [phone] Encounters Date Type Department Care Team Description 08/26/2025 10:57 AM EST - 08/26/2025 11:59 PM EST Hospital Encounter [facility] CT Scan [address] [place] [address] Pain in leg, unspecified Discharge Disposition: Home or Self Care 07/15/2025 Lab Requisition [facility] Lab [address] [facility] [place] [address] Nadia Armendariz MD Acute vaginitis [...] Signed Date: 09/07/2025 13:15 ET Workstation ID: [id number] Transcribed By: Self Edit Transcribed Date: 09/07/2025 [...] Signed Date: 09/07/2025 13:15 ET Workstation ID: [id number] Transcribed By: Self Edit Transcribed Date: 09/07/2025 13:06 ET Moshe Guaman MD [place] [facility] PROCEDURES Final Result * Vaginitis pathogens molecular study (07/15/2025 3:00 PM EDT) Trichomonas vaginalis Negative Negative 07/16/2025 1:23 PM EDT [facility] Gardnerella vaginalis Negative Negative 07/16/2025 1:23 PM EDT [facility] Becca Species Negative Negative 1:23 PM EDT [facility] Swab Vaginal structure / Unknown Non-blood Collection / Unknown 07/15/2025 3:00 PM EDT 07/15/2025 5:51 PM EDT Nadia Armendariz MD LAB MICROBIOLOGY - GENER AL ORDERABLES Final Result [facility] [address] [place] [address], from Last 3 Months Insurance MEDICARE [facility] Care Teams Frame Wirer Relationship Specialty Start Date End Date Edwige Cline MD [address] [place] [address] PCP - General Internal Medicine 05/02/15
== END 2025-09-20 13:31 | disposition home or self-care (01) ==
LOC: HO.HPHYS 12:36
PROVIDERS: PCP Internal Medicine; Visit Provider Physician Assistant
DX: M17.0 Bilateral primary osteoarthritis of knee (principal)
CPT/HCPCS: 20610; 99203

== ENCOUNTER → 2025-09-20 12:36 | Outpatient (BNVA) | payer MEDICARE, OTHER, SELFPAY | PROVIDERS: PCP Internal Medicine; Visit Provider Physician Assistant | DX: R32 Unspecified urinary incontinence (principal); R35.0 Frequency of micturition; Z53.8 Procedure and treatment not carried out for other reasons; M17.0 Bilateral primary osteoarthritis of knee; N95.2 Postmenopausal atrophic vaginitis | CPT/HCPCS: 20610; 99202; J2003; J3301 ==

== ENCOUNTER 2025-09-20 13:56 | Outpatient (AMB) | payer MEDICARE, OTHER, SELFPAY ==
--- NOTE | 2025-09-20 15:17 | MHC.OFFVIS ---
Intake Visit Reasons: Cysto/US (set(UA) Intake Note: Patient presents today for a cystoscopy/US 09/13 [facility] Medication:None Blood Thinner:None Antibiotic Allergies:None Lot #:[id number] EXP:03/15/28 Allergies Penicillins Allergy (Verified 09/20/25 15:19) Rash benzocaine Adverse Reaction (Verified 09/20/25 15:19) Agitated Medication List - Last Reconciled 09/20/25 by Bhavana Cruz MD amlodipine 5 mg PO DAILY dexlansoprazole (Dexilant) 60 mg PO DAILY fluticasone propionate 50 mcg/actuation 1 spray intranasal Q12H lorazepam 0.5 mg PO BEDTIME PRN meclizine (Motion Sickness (meclizine)) 25 mg PO DAILY PRN pravastatin 40 mg PO DAILY vibegron (Gemtesa) 75 mg PO DAILY HPI Comments Details: 09/20/25--Office visit scheduled for office cystoscopy the patient did not tolerate the betadine prep, stated it was painful. We will hold on cystoscopy at this time given ultrasound findings within normal limits. History of Present Illness The patient is a 80 year old female presenting for evaluation of the bladder symptoms. She reports urinary urgency, which is particularly bothersome at night, waking her from sleep every two hours. The urgency is also present during the daytime, though she notes it is less intrusive when her mind is occupied, citing an instance where she went three and a half hours without needing to void while socializing. Renal ultrasound performed on 09/13/2025 was normal. The patient reports drinking about three cups of coffee daily and notes a paradoxical effect where she believes it reduces her need to urinate. Results - Renal Ultrasound (09/13/2025): Results were normal, with no worrisome findings noted in the bladder. - Urinalysis: Today's sample is improved from the last visit and shows no blood. Plan 1. Overactive Bladder - The patient's symptoms of urinary urgency and nocturia are consistent with an overactive bladder. - Given the normal renal AND bladder ultrasound cystoscopy will be held for now - A prescription for Gemtesa, once daily, will be provided to manage the urgency symptoms. - The patient is advised to take the medication in the evening, around 8:00 or 9:00 PM. - She was counseled to continue voiding every three hours regardless of urge to prevent bladder overdistension. - Follow-up is scheduled in three months to reassess symptoms and response to treatment. 2. Atrophic Vaginitis PFSH Medical History Arthritis Gastro-esophageal reflux disease without esophagitis Hyperlipidemia Insomnia Hypertension Atrial fibrillation Anxiety Anemia Surgical History H/O colonoscopy History of hysterectomy Hx of LASIK Social History Alcohol intake: current Alcohol intake frequency: does not drink Patient Tobacco Use Status: Never used Tobacco Review of Systems Const All systems reviewed & are unremarkable except as noted in HPI and below Reports no additional complaints Eyes Reports no additional complaints ENT Reports no additional complaints Card Reports no additional complaints Resp Reports no additional complaints GI Reports no additional complaints Reports as per HPI Musc Reports no additional complaints Skin/Breast Reports system reviewed and no additional complaints, except as documented Neuro Reports no additional complaints Psych Reports no additional complaints Endo Reports no additional complaints Obed/Lymph Reports no additional complaints Aller/Immun Reports no additional complaints Office Procedures Cystoscopy Consent Discussed risk and benefit or proposed procedure with the patient. Information consent for procedure given to the patient. Discussed technical aspects, risks, benefits and alternatives in full. Addressed all of the patient's questions and concerns regarding the procedure. The patient demonstrated knowledge and understanding. They wish to proceed with this procedure. Procedure CYSTOSCOPY WAS NOT PERFORMED Procedure code (CPT) selection complete Office Meds lidocaine HCl 2 % mucosal jelly in applicator Performing Provider: Bhavana Cruz MD Performing Location: [facility] Documented (not given) by: Cirilo Juan LPN on 09/20/25 15:34 Reason Not Given: Not Medically Necessary nitrofurantoin monohydrate/macrocrystals 100 mg capsule Performing Provider: Bhavana Cruz MD Performing [facility] Documented (not given) by: Cirilo Juan LPN on 09/20/25 15:34 Dose Route Admin Location Dispensed Lot Number Expiration Date [employer] 100 mg PO cap phenazopyridine 200 mg tablet Performing Provider: Bhavana Cruz MD Performing Location: [facility] Administered by: Cirilo Juan LPN on 09/20/25 15:34 Dose Route Admin Location Dispensed Lot Number Expiration Date [employer] 200 mg PO 1 tab Assessment & Plan Assessment & Plan (1) Urinary frequency: Code(s): R35.0 - Frequency of micturition Category: Medical (2) Urinary incontinence: Code(s): R32 - Unspecified urinary incontinence Category: Medical Plan Plan Overactive Bladder - A prescription for Gemtesa, once daily, will be provided to manage the urgency symptoms. - The patient is advised to take the medication in the evening, around 8:00 or 9:00 PM. - She was counseled to continue voiding every three hours regardless of urge to prevent bladder overdistension. - Follow-up is scheduled in three months to reassess symptoms and response to treatment. Orders: Orders AMB Cystoscopy Today R32 - Unspecified urinary incontinence, R35.0 - Frequency of micturition Medications: New vibegron (Gemtesa) 75 mg PO DAILY 90 tabs 2RF nitrofurantoin monohyd/m-cryst 100 mg 100 mg PO ONCE 1 cap 0RF R32 - Unspecified urinary incontinence, R35.0 - Frequency of micturition Patient Instructions: The patient had an opportunity to ask questions regarding treatment plan. The patient expressed understanding and agreement with the above treatment plan. The patient is aware they should contact our office by phone for worsening of their current condition or the appearance of new symptoms. Compliance is encouraged with any medications and followup testing that is ordered. It is a privilege to be allowed the opportunity to participate in the urologic care of your patient. If you have any questions or concerns regarding treatment for the above conditions please do not hesitate to contact me. The office telephone contact is [phone]. This note is constructed in part using voice recognition software. While every effort has been made to ensure accuracy stockbroking dealer errors may have been included. Yours sincerely, Bhavana Cruz MD Scribe Plan - Not visible on output: Patient was informed and verbally consented to the use of an ambient scribe for clinic note documentation during this visit. Coding Level of Care Code Est Pt Level 4 (29272) Diagnoses Urinary frequency R35.0 Urinary incontinence R32
--- OUTSIDE RECORDS SUMMARY | 2025-09-20 20:19 | XMS_ITS | Patient Health Record ---
Author Organization [facility] [address] Address [address] [place] [address] Care Team Providers Care [employer] Name Role Phone DEBRAANDI Mclaughlin Primary Care Provider [phone] RICHIE AKINS Unavailable [phone] MON[place]NA AKINS Unavailable [phone] ALVAREZ HUYNH Unavailable [phone] RYAN HUGGINS Unavailable [phone] Allergies Allergen (clinical drug ingredient) Drug/Non Drug Allergy documented on EMR Reaction Allergy Type Onset Date Status benzocaine (uncoded) Unknown Allergy Active pcn (uncoded) Unknown Allergy Active Results Component Value Reference Range Flag Notes Urinalysis, Routine-[id number] Reviewed date:10/05/2024 10:02:49 AM Interpretation: Performing Lab:[facility] [place], [address] [place] [address], [place], Phone - [phone], Director - Allan Notes/Report: Specific [place] 1.024 1.005-1.030 pH 5.5 5.0-7.5 Urine-Color Yellow [...] Bacteria Few None seen/Few CBC With Differential/Platel et-[id number] Reviewed date:10/05/2024 09:57:53 AM Interpretation: Performing Lab:[facility] [place], [address] [facility], Phone - [phone], Director - Allan Notes/Report: WBC 4.9 3.4-10.8 [...] 0.0 0.0-0.1 x10E3/uL Comp. Metabolic Panel (14)-[id number] Reviewed date:10/05/2024 09:57:53 AM Interpretation: Performing Lab:[facility] [place], [address] [facility], [place], Phone - [phone], Director - Allan Notes/Report: Glucose 96 70-99 [...] 0-40 IU/L ALT (SGPT) 12 0-32 IU/L CT LOWER EXTREMITY W CONTRAS T BILAT (Not yet reviewed by provider) Interpretation: Performing Lab: Notes/Report: See Note [facility], a member of [place] EXAMINATION: CT LOWER EXTREMITY WITH CONTRAST, BILATERAL [...] Signed Date: 09/07/2025 13:15 ET Workstation ID: [id number] Transcribed By: Self Edit Transcribed Date: 09/07/2025 13:06 ET Reason For Referral Reason Frequency with [facility] u ro Diagnosis 1 Frequency of urinati on (R35.0) Referral Organization [facility] EUGENIO LARIOS Referring Provider First Name MONTANA Referring Provider Last Name TASHI Referring Provider Speciality Internal edicine Referred Provider Specialty Urology General Notes [facility], [address]; [facility] , P [phone], F [phone] Clinical Notes Susanne Gupta 2024 12:29:20 PM >Referral with note and labs sent to [facility] uro. Paper copy mailed to pt for [...] 0 06/08/2025 11:45:29 AM > Referral to [facility] Physical Therapy and faxed, p. [phone], f. [phone] Referral Priority Routine Diagnosis 1 Pain in [...] ESCAMILLA 0 06/30/2025 10:47:00 AM >Referral to [facility] Physical Therapy and faxed, p. [phone], f. [phone] Referral Priority Routine Medications Medication SIG (Take, [...] Status Risk Notes Problem Iron deficiency anemia (05768711) Iron deficiency anemia, unspecified (D50.9) Active confirmed Problem Vitamin B>12< deficiency anaemia (32361555) Vitamin B12 deficiency anemia, unspecified (D51.9) Active confirmed Problem Vitamin D deficiency (78163894) Vitamin D deficiency, unspecified (E55.9) Active confirmed Problem Obesity (124158271) Obesity, unspecified (E66.9) Active confirmed Problem Hyperlipidemia (52709194) Hyperlipidemia, unspecified (E78.5) Active confirmed Problem Insomnia (658135191) Insomnia, unspecified (G47.00) Active confirmed Problem Chronic pain (74966306) Other chronic pain (G89.29) Active confirmed Problem Benign paroxysmal positional vertigo (400500139) Benign paroxysmal vertigo, bilateral (H81.13) Active confirmed Problem Essential hypertension (46148713) Essential (primary) hypertension (I10) Active confirmed Problem Atherosclerotic heart disease of [place] coronary artery without angina pectoris (939276907357309) Atherosclerotic heart disease of [place] coronary artery without angina pectoris (I25.10) Active confirmed Problem Right carotid artery stenosis (258117019685981) Occlusion and stenosis of right carotid artery (I65.21) Active confirmed Problem Atopic dermatitis (74009071) Atopic dermatitis, unspecified (L20.9) Active confirmed Problem 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 confirmed Problem Adult health examination (777518844) Encounter for general adult medical examination without abnormal findings (Z00.00) Active confirmed Problem Obese class II (542220967124355) Body mass index (BMI) 35.0-35.9, adult (Z68.35) Active confirmed Problem Prediabetes (533565805) Prediabetes (R73.03) Active confirmed Problem Body mass index 30.00 to 34.99 (437181344008200) Body mass index (BMI) of 34.0-34.9 in adult (Z68.34) Active confirmed Problem Backache (807155075) Back pain, unspecified back location, unspecified back pain laterality, unspecified chronicity (M54.9) Active confirmed Problem Anxiety (18758897) Anxiety (F41.9) Active confi rmed Problem Adult health examination (722528353) Adult general medical exam (Z00.00) Active confirmed Problem Atrial fibrillation (73041754) Atrial fibrillation, unspecified type (I48.91) Active confirmed Problem Arthritis (3563644) Arthritis (M19.90) Active c onfirmed Problem Insomnia (977619341) Insomnia, unspecified type (G47.00) Active confirmed Problem Vitamin D deficiency (80524080) Vitamin D deficiency (E55.9) Active confirmed Problem Arthralgia of the pelvic region and thigh (297690956) Left hip pain (M25.552) Active confirmed Problem Pain in limb (98495846) Leg pain, left (M79.605) Active confirmed Problem Sciatica (66063924) Sciatic leg pain (M54.30) Active confirmed Problem Obese class II (404296171978397) BMI 36.0-36.9,adult (Z68.36) Active confirmed Problem Vitamin B>12< deficiency anaemia (06479570) Anemia due to vitamin B12 deficiency, unspecified B12 deficiency type (D51.9) Active confirmed Problem Gastroesophageal reflux disease (993325850) GERD without esophagitis (K21.9) Active confirmed Problem Pain in limb (49395655) Pain in left hanks (M79.662) Active confirmed Problem Hyperlipidemia (82415371) Hyperlipidemia (E78.5) Active confirmed Problem Pain in limb (44959174) Leg pain, right (M79.604) Active confirmed Problem [...] Provider Diagnosis [facility] [address] [place] [address] 10/05/2024 [facility] Adult general medica l exam Z00.00 ; Hyperlipidemia, unspecified E78.5 and Essential (primary) hypertension I10 [facility] [address] [place] [address] 03/15/2025 ANDI NASSARR Atrial fibrillation, unspecified type [...] findings Z01.[address] [place], [place] 06/08/2025 ANDI DEBRA Left leg swelling M7 9.89 ; Lower thoracic back pain M54.6 ; Hyperlipidemia, unspecified E78.5 ; Anxiety F41.9 ; Obesity, unspecified E66.9 ; Arthritis M19.90 ; 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 ; Vitamin D deficiency E55.9 and Encounter for examination of blood pressure without abnormal findings Z01.[address] [place], [place] 08/10/2025 ANDI DEBRA Left leg swelling M7 9.89 ; Lower thoracic back pain M54.6 ; Hyperlipidemia, unspecified E78.5 ; Anxiety F41.9 ; Obesity, unspecified E66.9 ; Arthritis M19.90 ; 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 ; Vitamin D deficiency E55.9 and Encounter for examination of blood pressure without abnormal findings Z01.[address] [place], [place] 08/18/2025 ANDI DEBRA Left leg swelling M7 9.89 ; Lower thoracic back pain M54.6 ; Hyperlipidemia, unspecified E78.5 ; Anxiety F41.9 ; Obesity, unspecified E66.9 ; Arthritis M19.90 ; 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 ; Vitamin D deficiency E55.9 and Encounter for examination of blood pressure without abnormal findings Z01.[address] [place], [place] 10/05/2024 MONTANA AKINS [facility] [address] [place], [place] 10/12/2024 RYAN HUGGINS [facility] [address] [place], [place] 11/10/2024 MON[place] AKINS [facility] [address] [place], [place] 12/03/2024 RICHIE AKINS [facility] [address] [facility] [address] [address] 12/08/2024 TALAL AKINS [facility] [address] [place] [address] 02/09/20[address]ALL AKINS [facility] [address] [place] [address] 04/16/[address]BRA [facility] [address] [place] [address] 05/28/20[address] DEBRA [facility] [address] [place], [place] 05/31/2025 [address]I DEBRA [facility] [address] [place], [place] 06/03/2025 ALVAREZ LINO [facility] [address] [place] [address] 06/08/2025 ANDI DEBRA [facility] [address] [place] [address] 06/30/20[address] DEBRA [facility] [address] [place], [place] 07/07/2025 ANDI DEBRA [facility] [address] [place], [place] 07/26/2025 MONTANA AKINS Left leg swelling M7 9.89 [facility] [address] [place] [address] 07/26/20[address] DEBRA [facility] [address] [place] [address] 08/09/2025 ANDI DEBRA [facility] [address] [place] [address] 08/18/2025 [address] DEBRA [facility] [address] [place], [place] 08/19/2025 NIDNIALL [facility] Pain in leg, unspeci fied M79.[address] [place] [address] 08/19/2025 ANDI DEBRA Aching leg syndrome of left lower extremity M79.605 and Aching leg syndrome of right lower extremity M79.[address] [place] [address] 08/25/2025 ANDI DEBRA Aching leg syndrome of right lower extremity M79.604 and Aching leg syndrome of left lower extremity M79.605 [facility] [address] [place] [address] 08/31/2025 ANDI RICHARDSON [facility] [address] [place] [address] 09/06/2025 ANDI RICHARDSON Assessments Encounter Date Diagnosis (ICD Code) Assessment [...] log exercise and discussed fitness Apps like [employer] which can help keep log off calories [...] and ligamentum degenerative changes. Patient referred to [facility] at this time as she may benefit from a repeat MRI or cortisone injections. #Bilateral lower leg swelling: Resolved.. Had a recent benign US #Right knee pain: Continue following with [facility] for injections #Atrial fibrillation: Last cardiology note [...] Dictation was accomplished with the use of vushaper voice recognition software, which is prone to [...] function. Additionally placing physical therapy referral to [facility] as patient states that as of now she is living with her partner in [place]. #Pancreatic cyst: She states that she is [...] changes. #Right knee pain: Continue following with [facility] for injections PRN #Atrial [...] Dictation was accomplished with the use of vushaper voice recognition software, which is prone to [...] function. Additionally placing physical therapy referral to [facility] as patient states that as of now she is living with her partner in [place]. #Pancreatic cyst: She states that she is [...] changes. #Right knee pain: Continue following with [facility] for injections PRN #Atrial [...] Dictation was accomplished with the use of vushaper voice recognition software, which is prone to [...] relief in the past. Patient recently completed [facility] physical therapy with minimal relief as well, [...] back pain: Patient recently was seen by [facility] physical therapy for back pain. Patient admits [...] changes. #Right knee pain: Continue following with [facility] for injections PRN #Atrial [...] Dictation was accomplished with the use of vushaper voice recognition software, which is prone to [...] back pain: Patient recently was seen by [facility] physical therapy for back pain. Patient admits [...] changes. #Right knee pain: Continue following with [facility] for injections PRN #Atrial [...] Dictation was accomplished with the use of vushaper voice recognition software, which is prone to [...] back pain: Patient recently was seen by [facility] physical therapy for back pain. Patient admits [...] Dictation was accomplished with the use of vushaper voice recognition software, which is prone to [...] relief in the past. Patient recently completed [facility] physical therapy with minimal relief as well, [...] back pain: Patient recently was seen by [facility] physical therapy for back pain. Patient admits [...] changes. #Right knee pain: Continue following with [facility] for injections PRN #Atrial [...] Dictation was accomplished with the use of vushaper voice recognition software, which is prone to [...] back pain: Patient recently was seen by [facility] physical therapy for back pain. Patient admits [...] changes. #Right knee pain: Continue following with [facility] for injections PRN #Atrial [...] Dictation was accomplished with the use of vushaper voice recognition software, which is prone to [...] and ligamentum degenerative changes. Patient referred to [facility] spine and sports at this time as she may benefit from a repeat MRI or cortisone injections. #Bilateral lower leg swelling: Resolved.. Had a recent benign US #Right knee pain: Continue following with [facility] for injections #Atrial fibrillation: Last cardiology note [...] Dictation was accomplished with the use of vushaper voice recognition software, which is prone to [...] and ligamentum degenerative changes. Patient referred to [facility] spine and sports at this time as she may benefit from a repeat MRI or cortisone injections. #Bilateral lower leg swelling: Resolved.. Had a recent benign US #Right knee pain: Continue following with [facility] for injections #Atrial fibrillation: [...] Dictation was accomplished with the use of vushaper voice recognition software, which is prone to [...] function. Additionally placing physical therapy referral to [facility] as patient states that as of now she is living with her partner in [place]. #Pancreatic cyst: She states that she is [...] changes. #Right knee pain: Continue following with [facility] for injections PRN #Atrial [...] Dictation was accomplished with the use of vushaper voice recognition software, which is prone to [...] log exercise and discussed fitness Apps like [employer] which can help keep log off calories [...] log exercise and discussed fitness Apps like [employer] which can help keep log off calories [...] and ligamentum degenerative changes. Patient referred to [facility] at this time as she may benefit from a repeat MRI or cortisone injections. #Bilateral lower leg swelling: Resolved.. Had a recent benign US #Right knee pain: Continue following with [facility] for injections #Atrial fibrillation: Last cardiology note [...] Dictation was accomplished with the use of vushaper voice recognition software, which is prone to [...] relief in the past. Patient recently completed [facility] physical therapy with minimal relief as well, [...] back pain: Patient recently was seen by [facility] physical therapy for back pain. Patient admits [...] changes. #Right knee pain: Continue following with [facility] for injections PRN #Atrial [...] Dictation was accomplished with the use of vushaper voice recognition software, which is prone to [...] function. Additionally placing physical therapy referral to [facility] as patient states that as of now she is living with her partner in [place]. #Pancreatic cyst: She states that she is [...] changes. #Right knee pain: Continue following with [facility] for injections PRN #Atrial [...] Dictation was accomplished with the use of vushaper voice recognition software, which is prone to [...] gain: Patient would like to look into [facility] at this time, will reconvene at follow-up #Lower back pain: Patient recently was seen by [facility] physical therapy for back pain. Patient admits [...] changes. #Right knee pain: Continue following with [facility] for injections PRN #Atrial [...] Dictation was accomplished with the use of vushaper voice recognition software, which is prone to [...] function. Additionally placing physical therapy referral to [facility] as patient states that as of now she is living with her partner in [place]. #Pancreatic cyst: She states that she is [...] changes. #Right knee pain: Continue following with [facility] for injections PRN #Atrial [...] it any questions/concerns arise. Case discussed with [facility] who reviewed the assessment and plan. Chart, medications, labs, vital signs reviewed. Dictation was accomplished with the use of vushaper voice recognition software, which is prone to [...] back pain: Patient recently was seen by [facility] physical therapy for back pain. Patient admits [...] changes. #Right knee pain: Continue following with [facility] for injections PRN #Atrial [...] Dictation was accomplished with the use of vushaper voice recognition software, which is prone to [...] relief in the past. Patient recently completed [facility] physical therapy with minimal relief as well, [...] back pain: Patient recently was seen by [facility] physical therapy for back pain. Patient admits [...] changes. #Right knee pain: Continue following with [facility] for injections PRN #Atrial [...] Dictation was accomplished with the use of vushaper voice recognition software, which is prone to [...] and ligamentum degenerative changes. Patient referred to [facility] spine [facility] sports at this time as she may benefit from a repeat MRI or cortisone injections. #Bilateral lower leg swelling: Resolved.. Had a recent benign US #Right knee pain: Continue following with [facility] for injections #Atrial fibrillation: [...] Dictation was accomplished with the use of vushaper voice recognition software, which is prone to [...] and ligamentum degenerative changes. Patient referred to [facility] spine and sports at this time as she may benefit from a repeat MRI or cortisone injections. #Bilateral lower leg swelling: Resolved.. Had a recent benign US #Right knee pain: Continue following with [facility] for injections #Atrial fibrillation: [...] Dictation was accomplished with the use of vushaper voice recognition software, which is prone to [...] function. Additionally placing physical therapy referral to [facility] as patient states that as of now she is living with her partner in [place]. #Pancreatic cyst: She states that she is [...] changes. #Right knee pain: Continue following with [facility] for injections PRN #Atrial [...] Dictation was accomplished with the use of vushaper voice recognition software, which is prone to [...] relief in the past. Patient recently completed [facility] physical therapy with minimal relief as well, [...] back pain: Patient recently was seen by [facility] physical therapy for back pain. Patient admits [...] changes. #Right knee pain: Continue following with [facility] for injections PRN #Atrial [...] Dictation was accomplished with the use of vushaper voice recognition software, which is prone to [...] back pain: Patient recently was seen by [facility] physical therapy for back pain. Patient admits [...] changes. #Right knee pain: Continue following with [facility] for injections PRN #Atrial [...] Dictation was accomplished with the use of vushaper voice recognition software, which is prone to [...] back pain: Patient recently was seen by [facility] physical therapy for back pain. Patient admits [...] changes. #Right knee pain: Continue following with [facility] for injections PRN #Atrial [...] Dictation was accomplished with the use of vushaper voice recognition software, which is prone to [...] relief in the past. Patient recently completed [facility] physical therapy with minimal relief as well, [...] back pain: Patient recently was seen by [facility] physical therapy for back pain. Patient admits [...] changes. #Right knee pain: Continue following with [facility] for injections PRN #Atrial [...] Dictation was accomplished with the use of vushaper voice recognition software, which is prone to [...] function. Additionally placing physical therapy referral to [facility] as patient states that as of now she is living with her partner in [place]. #Pancreatic cyst: She states that she is [...] changes. #Right knee pain: Continue following with [facility] for injections PRN #Atrial [...] Dictation was accomplished with the use of vushaper voice recognition software, which is prone to [...] and ligamentum degenerative changes. Patient referred to [facility] at this time as she may benefit from a repeat MRI or cortisone injections. #Bilateral lower leg swelling: Resolved.. Had a recent benign US #Right knee pain: Continue following with [facility] [employer] for injections #Atrial fibrillation: Last cardiology note [...] Dictation was accomplished with the use of vushaper voice recognition software, which is prone to medical misidentifications and grammatical errors. This are unintentional and the practitioner does try to identify and correct these, but some could still be present. Please do not hesitate to contact practitioner for clarification. 06/08/2025 Vitamin D deficiency (ICD-10 - E55.9Henry Chamorro is a pleasant 80-year-old female with a past medical history of arthritis, anemia, anxiety, A-fib, hyperlipidemia, esophageal reflux, hypertension and insomnia who presents today for a f/u... #Lower back pain: Sending patient naproxen 500 mg tablets to be utilized as needed. Emphasized importance of taking this medication with food. Patient's recent CMP demonstrated adequate kidney function. Additionally placing physical therapy referral to [facility] as patient states that as of now she is living with her partner in [place]. #Pancreatic cyst: She states that she is [...] changes. #Right knee pain: Continue following with [facility] for injections PRN #Atrial [...] Dictation was accomplished with the use of vushaper voice recognition software, which is prone to [...] and ligamentum degenerative changes. Patient referred to [facility] at this time as she may benefit from a repeat MRI or cortisone injections. #Bilateral lower leg swelling: Resolved.. Had a recent benign US #Right knee pain: Continue following with [facility] for injections #Atrial fibrillation: Last cardiology note [...] Dictation was accomplished with the use of vushaper voice recognition software, which is prone to [...] relief in the past. Patient recently completed [facility] physical therapy with minimal relief as well, [...] back pain: Patient recently was seen by [facility] physical therapy for back pain. Patient admits [...] changes. #Right knee pain: Continue following with [facility] for injections PRN #Atrial [...] Dictation was accomplished with the use of vushaper voice recognition software, which is prone to [...] back pain: Patient recently was seen by [facility] physical therapy for back pain. Patient admits [...] changes. #Right knee pain: Continue following with [facility] for injections PRN #Atrial [...] Dictation was accomplished with the use of vushaper voice recognition software, which is prone to [...] relief in the past. Patient recently completed [facility] physical therapy with minimal relief as well, [...] back pain: Patient recently was seen by [facility] physical therapy for back pain. Patient admits [...] changes. #Right knee pain: Continue following with [facility] for injections PRN #Atrial [...] Dictation was accomplished with the use of vushaper voice recognition software, which is prone to [...] back pain: Patient recently was seen by [facility] physical therapy for back pain. Patient admits [...] changes. #Right knee pain: Continue following with [facility] for injections PRN #Atrial [...] Dictation was accomplished with the use of vushaper voice recognition software, which is prone to [...] function. Additionally placing physical therapy referral to [facility] as patient states that as of now she is living with her partner in [place]. #Pancreatic cyst: She states that she is [...] changes. #Right knee pain: Continue following with [facility] for injections PRN #Atrial [...] Dictation was accomplished with the use of vushaper voice recognition software, which is prone to [...] and ligamentum degenerative changes. Patient referred to [facility] at this time as she may benefit from a repeat MRI or cortisone injections. #Bilateral lower leg swelling: Resolved.. Had a recent benign US #Right knee pain: Continue following with [facility] for injections #Atrial fibrillation: [...] Dictation was accomplished with the use of vushaper voice recognition software, which is prone to [...] and ligamentum degenerative changes. Patient referred to [facility] at this time as she may benefit from a repeat MRI or cortisone injections. #Bilateral lower leg swelling: Resolved.. Had a recent benign US #Right knee pain: Continue following with [facility] for injections #Atrial fibrillation: [...] Dictation was accomplished with the use of vushaper voice recognition software, which is prone to [...] relief in the past. Patient recently completed [facility] physical therapy with minimal relief as well, [...] back pain: Patient recently was seen by [facility] physical therapy for back pain. Patient admits [...] changes. #Right knee pain: Continue following with [facility] for injections PRN #Atrial [...] Dictation was accomplished with the use of vushaper voice recognition software, which is prone to [...] and ligamentum degenerative changes. Patient referred to [facility] at this time as she may benefit from a repeat MRI or cortisone injections. #Bilateral lower leg swelling: Resolved.. Had a recent benign US #Right knee pain: Continue following with [facility] [employer] for injections #Atrial fibrillation: Last cardiology note [...] Dictation was accomplished with the use of vushaper voice recognition software, which is prone to [...] Details Provider Name:ANDI DEBRA, 01:00:00 PM, [address], [place], [address], Provider Name:ANDI DEBRA, 02:00:00 PM, [address], [place], [address], Insurance Providers Payer Name Payer Address Payer Phone Subscriber Number Group Number Insured Name Patient Relationship to Insured Coverage Start Date Coverage End Date Medicare Part B J14 [address] [place] [id number] [id number] NANCY REYNOLDS Self - patient is the insured 2 [employer] [address] [id number] NANCY REYNOLDS Self - patient is the insured Medical (General) History Medical History History ICD Code anemia anxiety Atrial fibrillation hypertension insomnia Anxiety F41.9 Hyperlipidemia E78.5 Gastro-esophageal reflux disease without esophagitis K21.9 Arthritis M19.90 Surgical History Surgery Date(Month/Year) cholecystectomy lasik hysterectomy colonoscopy 3 years cardiac ablation Hospitalization History Reason Date(Month/Year) SAME SURGICAL
--- OUTSIDE RECORDS SUMMARY | 2025-09-20 20:19 | XMS_ITS | Data Portability ---
Author Organization KARINA Goldberg s, [address] Address [address] [place] [address] Assessment No assessment recorded. Plan of Treatment [...] on warfarin for A-fib. 2023 024 [email or web address] [facility] (Hsg Scheduling), [address] [place], [address] 4 15:09:02 XR, tibia + fibula, 2 view 2023 024 [facility], [address] [place] [address], [address], 10:57:06 Medication Orders nystatin 100,000 unit/gram topical powder 2023 024 [facility] #[id number], [address] [place], [address], 09:53:52 Patient TargetsNo targets recorded. Patient Instructions Encounter Date Encounter Id Patient Instructions Last Modified By Organization Details Last Modified Time 11/04/2023 [id number] candidiasis: car e instructions [email or web address] Not available 11/04/2023 09:54:44 Use the nystatin powder as directed. Keep affected area clean and dry. See printed instructions. Follow-up with your doctor in one week. Seek Emergency Medical evaluation for any worsening symptoms, particularly for increased pain, redness, swelling or for fever, chills, purulent drainage. [email or web address] Not available 11/04/2023 09:55:33 04/20/2024 [id number] leg pain: care instructions [email or web address] Not available 04/20/2024 10:05:20 Reason for Referral None Reported. Results Created Date Observation Date Name Description Value Unit Range Abnormal Flag Note LastModifiedBy Organization Detail LastModifiedTime 04/20/20 24 04/20/2024 XR, tibia + fibul a, 2 view No observ ation record ed. [facility] [address] [place], [place], [address], 04/20/2024 11:21:32 Result Notes None recorded. 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 046234991 Active 2023 Santy Ace NP [address] [place], [address], PA - [facility] 4 10:20:48 [...] Name and Address Organization Details Recorded Time 795368 latex environme nt,medica tion Not available Not available Not available 11/04/2023 28161 91 RxNorm ALVAREZ SHELDONLance null, PA - [facility] 4 09:31:08 876871 Product containin g penicilli n (product) medicatio n Not available Not available Not available 11/04/2023 08816 8001 SNOMED ALVAREZ RUIZ null, PA - [facility] 4 09:30:48 202227 benzocain e medicatio n Not available Not [...] Updated DateTime 4 162.56 cm 34.3 kg/m2 05004.4 7 g 97 % 78 /min 18 [...] 4 162.56 cm 98.1 [degF] 32.4 kg/m2 78950.9 6 g 94 % 96 /min 9 18 /min 152/73 mm[Hg] Thalai Wilder PA - [facility] 09:49:37 Social History Question Answer Notes LastModified by [employer] Details LastModified Time Tobacco Smoking Status Never [...] Functional Status Question Answer Note LastModified by [employer] Details LastModified Time Do you use any [...] ICD10 Code Diagnosis IMO Codes Diagnosis Note [id number] Christina Escobedo [facility] [address] [place] [address] 11/04/2023 09:08:59 11/04/2023 09:56:16 Candidal intertrigo 340390819 B37.2 [id number] Santy [address]MICHAEL [address] [place] [address] 04/20/2024 09:44:30 04/20/2024 10:28:22 Pain of left lower leg 2847053281 33670 M79.662 Pain due t o varicose veins of lower extremity 180498445 I83.819 Go to the Emergency Department immediatel [...] Fox Member ID Guarantor Name 04/20/2024 2 [facility] Ashtyn Smith [id number] Ashtyn Smith 04/20/2024 1 MEDICARE B-[place]: [employer] Ashtyn Coreas Fonde [id number] Ashtyn Fonde Notes Date Note Type [...] symptoms. Christina Escobedo MD [address] [place], [address], [employer] 11/04/2023 10:01:10 04/20/2024 text/html Lower Leg UCRepo [...] affected body part. Santy Ace NP [address] [facility] [place], [address], [employer] [facility] 04/20/2024 10:27:04 OBGyn Episode No OBEpisode recorded.
== END 2025-09-20 15:52 | disposition home or self-care (01) ==
LOC: HO.HUSH 13:57
PROVIDERS: Visit Provider Urology
DX: R35.0 Frequency of micturition (principal); R32 Unspecified urinary incontinence
CPT/HCPCS: 99214